=== PATIENT | male | born 1935 | race Caucasian/White ===

== ENCOUNTER 2021-03-08 16:13 | Inpatient (IN) | payer MEDICARE, SELFPAY ==
[2021-03-08] VITALS (18 sets, daily range): BP systolic 114–144; BP diastolic 61–103; PULSE 92–108; RESP 17–29; TEMP 36.4–36.9; O2SAT 91–100; BMI 25.8
--- NOTE | 2021-03-08 16:22 | DI.RAD.S_ITS ---
PROCEDURE: XR CHEST 2V INDICATIONS: shortness of breath TECHNIQUE: 2 views of the chest were acquired. COMPARISON: [facility], , CHEST 2 VIEW, 03/14/2016, 10:45. FINDINGS: Surgical changes and devices: None. Lungs and pleura: There is moderate patchy bilateral perihilar and basilar airspace opacities. Small right greater than left pleural effusions. Mediastinum: Mediastinal contours are normal. Heart size is normal. Bones and chest wall: No suspicious bony abnormalities. Soft tissues appear unremarkable. IMPRESSION: Moderate bilateral pneumonia with small parapneumonic effusions bilaterally. Continued plain film surveillance is recommended to ensure resolution, and to exclude underlying or central malignancy. Dictated by: Chinedu Kaufman M.D. on 03/08/2021 at 16:40 Approved by: Chinedu Kaufman M.D. on 03/08/2021 at 16:40
[2021-03-08 16:50] LABS: Add Manual Diff / Slide Review NO; Basophils Absolute Auto 100 /uL (0-100); Basophils Percent Auto 0.8 % (0-2); Eosinophils Absolute Auto 100 /uL (0-450); Eosinophils Percent Auto 1.3 % (2-4); Hematocrit 48.7 % (41-53); Lymphocytes Absolute Auto 600 /uL (1100-4500); Lymphocytes Percent Auto 9.1 % (25-40); Mean Corpuscular HGB Conc 32.9 % (30-36); Mean Corpuscular Hemoglobin 31.4 PG (26-34); Mean Corpuscular Volume 95.2 fL (80-100); Monocytes Absolute Auto 400 /uL (0-900); Monocytes Percent Auto 7.2 % (3-14); Neutrophils Absolute Auto 5000 /uL (1500-7000); Neutrophils Percent Auto 81.6 % (50-75); Platelet Count 230 X10^3/uL (150-400); Red Blood Cell Count 5.12 X10^6/uL (4.5-5.9); Red Cell Distribution Width 14.7 % (11.6-14.8); White Blood Cell Count 6.2 X10^3/uL (4.5-11.0)
[2021-03-08 17:12] LABS: Alanine Aminotransferase 64 IU/L (<50); Albumin 3.7 g/dL (3.5-5.0); Albumin Globulin Ratio 1.3 (1.0-2.8); Alkaline Phosphatase 78 U/L (38-126); Aspartate Aminotransferase 62 IU/L (17-59); BUN Creatinine Ratio 17.5 (6-22); Bilirubin Total 0.9 mg/dL (0.2-1.3); Blood Urea Nitrogen 21 mg/dL (9-20); Calcium 9.4 mg/dL (8.4-10.2); Carbon Dioxide 23 mmol/L (22-32); Chloride 102 mmol/L (98-107); Estimated Glomerular Filt Rate 57.8 mL/min (>60); Globulin 2.9 g/dL (1.7-4.1); Glucose 128 mg/dL (80-110); HEMOLYSIS 37 (0-50); Potassium 4.3 mmol/L (3.4-5.1); Sodium 134 mmol/L (137-145); Total Protein 6.6 g/dL (6.3-8.2)
--- NOTE | 2021-03-08 17:14 | CM.SWNOTE ---
REGIONAL MARKETING MANAGER Note REGIONAL MARKETING MANAGER receives consult and enters room to meet with patient. Patient presents as A/Ox4. Patient states he lives on [facility] with his partner Anna. Patient states [place] [facility]. Patient states he has been experiening SOB for about two months now. Patient states that his PCP recently retired and he is trying to be seen by Dr. Christiano French but scheduled an establish care appt with Dr. Tyson De Jesus next saturday. Patient states he is independent and mobile at home. Patient states that he has 10 cats and 2 dogs at home. Patient states the he has a brother that lives in [place], [place] and no other family near by. Patient states that his partner Anna is aware of his presence at this ED and does not think she needs to come in at this time. REGIONAL MARKETING MANAGER asks patient if he has any questions or concerns for this REGIONAL MARKETING MANAGER. Patient indicates no services are needed. REGIONAL MARKETING MANAGER reviews the above with ED provider Dr. Kate and JOSIE Kenyon and both indicate understanding and agreement. Plan: ED Provider to assess patient for further plan of care. LESVIA Valles
--- NOTE | 2021-03-08 17:28 | DI.CT.S_ITS ---
PROCEDURE: CT ANGIO CHEST PE PROTOCOL INDICATIONS: pneumonia b/l, cyanosis fingers/toes, swelling leg. TECHNIQUE: After the administration of intravenous contrast, 2 mm thick sections acquired from the pulmonary apices to the posterior costophrenic angles. 3-dimensional maximum intensity projection (MIP) coronal and sagittal reformats were then acquired through the thorax. For radiation dose reduction, the following was used: automated exposure control, adjustment of mA and/or kV according to patient size. COMPARISON: None. FINDINGS: Lungs: Smooth thickening of the interlobular septal lines and scattered mild ground-glass opacities. No focal consolidation. Pleura: Large bilateral pleural effusions with adjacent atelectasis. No pneumothorax. Heart: Heart is enlarged. No pericardial effusion. Reflux of contrast into the IVC and hepatic veins suggesting decreased cardiac output. Chest nodes: Normal. Thyroid gland: Normal Aorta: Normal in size. Pulmonary arteries: No intraluminal filling defect seen Esophagus: Normal. Upper abdomen: Partially visualized left hydronephrosis with cortical thinning versus large multiple parapelvic cysts, not entirely included on the examination. Bones: Spondylitic changes and facet arthropathy. IMPRESSION: No evidence of pulmonary embolism. No aortic dissection identified. Large bilateral pleural effusions with adjacent atelectasis and pulmonary edema. Recommend clinical and laboratory correlation to exclude underlying infection. Cardiomegaly with CT evidence of decreased cardiac output. Partially visualized left hydronephrosis which could be chronic although technically age indeterminate. Differential includes large multiple parapelvic cysts. Recommend clinical correlation and if necessary, renal ultrasound could be performed for further assessment. Dictated by: Teo Dominguez M.D. on 03/08/2021 at 17:59 Approved by: Teo Dominguez M.D. on 03/08/2021 at 18:08
[2021-03-08] MEDS: SODIUM CHLORIDE 0.9% 1,000 ML 1000 ML IV (17:47)
[2021-03-08] MEDS: methylPREDNISolone 125 MG/2 ML VIAL IV (17:47)
[2021-03-08] MEDS: CEFTRIAXONE 2 GM/50 ML FROZ.PIGGY IV (17:53)
[2021-03-08 17:57] LABS: Creatine Kinase 129 U/L (55-170)
[2021-03-08 18:10] LABS: NT-proBNP (BNP-Adult 18+) 11900 pg/mL (<450); Troponin I 0.049 ng/mL (0.01-0.034)
[2021-03-08 18:12] LABS: Creatine Kinase MB 7.94 ng/mL (<2.37)
[2021-03-08 18:14] LABS: CKMB % Relative Index 6.2 % (1.5-5.0)
[2021-03-08] MEDS: AZITHROMYCIN 500 MG in DEXTROSE 5% IN WATER 250 ML IV (18:29)
[2021-03-08 19:01] LABS: COVID19 - ADMIT (NP swab/PCR) Negative (Negative)
[2021-03-08] MEDS: FUROSEMIDE 40 MG/4 ML VIAL IV (19:13)
[2021-03-08] MEDS: ASPIRIN 81 MG CHEW TAB 324 MG PO (19:14)
--- NOTE | 2021-03-08 23:23 | DI.ECHO.S_ITS ---
[facility] +---------+ : : [address] : : : : [id number] : : : : Phone: [phone]+ Echocardiogram Report + + :Name: JUDI NICHOLS Study Date: 03/09/2021 Height: 69 in : [facility] Weight: 175 lb : : Gender: Male BSA: 2.0 m2 : :: 1935 Age: 85 yrs BP: 134/95 mmHg: :Reason For Study: CONGESTIVE HEART FAILURE : :Ordering Physician: Jennifer MITCHELLformed By: Hyun Hernandez : :Referring: LINA MITCHELL : + + Interpretation Summary Normal sinus rhythm. Moderately dilated left ventricle with severe global hypokinesis. Ejection fraction is 10-15%. Stage II diastolic dysfunction. Mild left atrial enlargement. Mildly dilated RV with mildly reduced right ventricular function. Mitral valve leaflets are normal. There is mild mitral annular calcification with moderate associated eccentric posterior laterally directed mitral regurgitation. There is no obvious leaflet tethering or prolapse. Aortic sclerosis without stenosis. There is moderate central tricuspid regurgitation with estimated pulmonary artery systolic pressure of 55 mmHg assuming right atrial pressure 15 mmHg. There is moderate left pleural effusion. No prior study available for comparison. Procedure: A two-dimensional transthoracic echocardiogram with color flow and Doppler was performed. The study quality was technically adequate. There is no prior echocardiogram noted for this patient. The heart rate ranged between 78-88 bpm during the study. Left Ventricle: The left ventricle is moderately dilated. The estimated left ventricular end diastolic volume is 188 ml. There is normal left ventricular wall thickness. The ejection fraction is estimated to be 10-15%. Right Ventricle: The right ventricle is mildly dilated. Right ventricular systolic function is mildly reduced. Atria: The left atrium is mildly dilated. Right atrial size is normal. There is no Doppler evidence for an interatrial shunt. Mitral Valve: There is mild mitral annular calcification. The mitral valve leaflets appear moderately thickened, but open well. There is moderate mitral regurgitation. Aortic Valve: The aortic valve is mildly calcified. The aortic valve opens well. The aortic valve is trileaflet. There is no aortic valve stenosis. No aortic regurgitation is present. Tricuspid Valve: Tricuspid leaflets are thickened. The right ventricular systolic pressure is estimated to be at least 55 mmHg based on an estimated right atrial pressure of 15 mm Hg. There is mild to moderate tricuspid regurgitation. Pulmonic Valve: The pulmonic valve is not well visualized. Great Vessels: The aortic root is normal size. The ascending aorta could not be visualized. The aortic arch could not be visualized. The IVC is dilated (diameter is greater than 2.1 cm) and it collapses less than 50% with a sniff. This suggests a high right atrial pressure of 15 mm Hg. Pericardium/ Pleura There is no pericardial effusion. There is a pleural effusion noted. MMode/2D Measurements & Calculations LVIDd: 6.2 cm LVOT diam: 2.0 cm LVIDs: 5.9 cm Ao root diam: 3.0 cm FS: 5.2 % EPSS: 2.2 cm IVSd: 0.82 cm LVPWd: 0.68 cm LV ricks. diameter/BSA (cm/m^2): 3.2 LV sys. diameter/BSA (cm/m^2): 3.0 LA A2 area: 18.3 cm2 RA long axis: 4.9 cm LA A4 area: 26.7 cm2 RA area: 16.5 cm2 LA length (vol): 5.6 cm RA vol: 47.9 ml LA vol: 74.6 ml RA : 24.5 ml/m2 LA vol index: 38.2 ml/m2 IVC diam: 2.0 cm RVD1 (basal): 5.1 cm TAPSE: 1.5 cm Doppler Measurements & Calculations Ao V2 max: 86.3 cm/sec LVOT Max [place]: 50.0 cm/sec Ao V2 mean: 63.7 cm/sec LV V1 max P.0 mmHg Ao max P.0 mmHg LV V1 VTI: 8.8 cm Ao mean P.8 mmHg FATMATA(I,D): 1.6 cm2 Ao V2 VTI: 17.2 cm FATMATA(V,D): 1.8 cm2 sev ratio: 0.51 FATMATA indexed to BSA (cm^2/m^2): 0.80 MV E max [place]: 85.9 cm/sec TR max [place]: 316.0 cm/sec MV A max [place]: 55.9 cm/sec TR max P.0 mmHg MV E/A: 1.5 Med Peak E' [place]: 6.0 cm/sec E/E' med: 14.3 Lat Peak E' [place]: 5.7 cm/sec E/E' lat: 15.0 E/e' average: 14.7 MV dec time: 0.09 sec SV(LVOT): 26.7 ml Electronically signed by: Jeanne Falk M.D. on [place] Physician:03/09/2021 02:42 PM
[2021-03-08 23:53] LABS: Hemoglobin A1C% w Est Avg Glu 5.5 % (4.0-6.0)
[2021-03-08] MEDS: METOPROLOL IR 25 MG TABLET 12.5 MG PO (23:54)
[2021-03-09] VITALS (11 sets, daily range): BP systolic 92–127; BP diastolic 60–79; PULSE 79–95; RESP 16–24; TEMP 36.2–37.6; O2SAT 94–100
[2021-03-09 00:34] LABS: Magnesium 2.2 mg/dL (1.6-2.3)
[2021-03-09 01:01] LABS: Troponin I 0.055 ng/mL (0.01-0.034)
--- NOTE | 2021-03-09 03:25 | PM.HP.1 ---
History of Present Illness History of Present Illness Date Patient Seen: 03/08/21 Time Patient Seen: 22:45 Chief complaint: SOB Narrative: Omi Nowak is a 89-year-old male with the only diagnosis of having asthma presented to the emergency department with severe shortness of breath. States he has been unable to walk for much more than 100 ft and that this is been going on for 2 weeks. He also endorses feeling lightheaded when he gets up. He denies fevers sweats or chills, he coughs to release moisture from his lungs but does not have chronic cough, he states that he has poor hygiene in his mouth and he is worried about if his poor oral dentition might be contributing to problems in his heart, he denies any chest pain, palpitations, or pain with breathing, he denies any nausea vomiting, dysuria, weakness but does endorse fatigue, he denies any diarrhea or constipation. Chest x-ray in ordered in the ED indicated bilateral pleural effusions and CT of the chest indicated ?Large bilateral pleural effusions with adjacent atelectasis and pulmonary edema. Recommend clinical and laboratory correlation to exclude underlying infection.Patient is afebrile, blood pressure 121/61, heart rate 92, respiratory rate of 18, oxygen saturation 97% on room air, he weighs 79.3 kg with a BMI of 26. WBC is unremarkable, he is mildly hyponatremic with a sodium of 134, BUN is 21, creatinine 1.20, GFR is glucose was 128, he is not diabetic with a hemoglobin A1c of 5.5, AST 62, ALT 64, CK-MB is 7.94, CK-MB relative index 6.2, troponin was initially 0.049, then increased to 0.050, and is now 0.055, his NT proBNP is almost 12,000, COVID-19 PCR is negative. Patient History Surgical History (Updated 03/09/21 @ 03:34 by CARMINA Araujo) No history of previous surgery Family & Social History Family History (Updated 03/09/21 @ 03:35 by CARMINA Araujo) Mother Uterine cancer Father Lung cancer Social History: household members significant other Prior Living Arrangements House Safety & Behavioral: Feels Safe in Current Yes Environment Been Physically Hurt or No Threatened By a Person Tobacco & Substance use: Smoking Status Never smoker alcohol intake current alcohol intake frequency 0-2 drinks per day Meds Home Medications and Allergies Home Medications Medication Instructions Recorded Confirmed Type albuterol sulfate 90 mcg/actuation 2 puff INHALATION QID PRN #6.7 g 02/13/21 03/08/21 Rx aerosol inhaler fluticasone 500 mcg-salmeterol 50 1 inh INHALATION BID #1 ea 02/13/21 03/08/21 Rx mcg/dose blistr powdr for inhalation montelukast 10 mg PO DAILY 03/08/21 03/08/21 History Allergies Allergy/AdvReac Type Severity Reaction Status Date / Time No Known Drug Allergies Allergy Verified 06/10/19 14:10 Review of Systems Review of Systems ROS: Yes All systems reviewed with the patient and are negative except as otherwise documented Exam Vital Signs (past 8 hours): - 03/08/21 19:30 03/08/21 20:00 03/08/21 20:13 Temperature Pulse Rate 100 H 103 H 99 H Respiratory Rate 17 22 20 Blood Pressure 116/83 114/79 Pulse Oximetry 99 99 95 03/08/21 20:30 03/08/21 21:00 03/08/21 21:30 Temperature Pulse Rate 101 H 101 H 102 H Respiratory Rate 20 27 H 19 Blood Pressure Pulse Oximetry 99 100 99 03/08/21 22:00 03/08/21 22:35 03/08/21 23:19 Temperature 98.1 F 97.6 F Pulse Rate 105 H 108 H 92 H Respiratory Rate 26 H 24 18 Blood Pressure 134/95 H 121/61 Pulse Oximetry 98 94 97 Oxygen Delivery Method Room Air Oxygen Flow Rate 0 Narrative Exam Narrative: Gen: Alert, oriented, dishevelled 85 y.o. male, ill-appearing HEENT: normocephalic, atraumatic, conjunctiva clear, sclera non-icteric, poor dentition, oral mucosa dry Neck: supple, full ROM, no JVD, trachea is midline Resp: Lung sounds are coarse, non-labored breathing CV: RRR, no murmur or rubs Abd: soft, non-tender, normoactive BTs Skin: Very cyanotic extremities, cold, poor skin turgor Neuro: Alert and oriented X 4 w/no focal deficits. Speech clear and coherent. Extremities: moves all 4 extremities, is ambulatory, negative Ludy?s sign Psyche: normal mood and affect. Objective Labs Result Diagrams: 03/08/21 16:30 03/08/21 16:30 Labs: Laboratory Results - last 24 hr 03/08/21 03/08/21 03/08/21 16:30 16:30 16:30 WBC 6.2 RBC 5.12 Hgb 16.0 Hct 48.7 MCV 95.2 MCH 31.4 MCHC 32.9 RDW 14.7 Plt Count 230 Neut % (Auto) 81.6 H Lymph % (Auto) 9.1 L [place] % (Auto) 7.2 Eos % (Auto) 1.3 L Baso % (Auto) 0.8 Neut # (Auto) 5000 Lymph # (Auto) 600 L [place] # (Auto) 400 Eos # (Auto) 100 Baso # (Auto) 100 Sodium 134 L Potassium 4.3 Chloride 102 Carbon Dioxide 23 BUN 21 H Creatinine 1.20 Estimated GFR 57.8 L BUN/Creatinine Ratio 17.5 Glucose 128 H Hemoglobin A1c Lactate 2.0 Calcium 9.4 Magnesium Total Bilirubin 0.9 AST 62 H ALT 64 H Alkaline Phosphatase 78 Total Creatine Kinase CK-MB (CK-2) CK-MB (CK-2) Rel Index Troponin I NT-Pro-B Natriuret Pep Total Protein 6.6 Albumin 3.7 Globulin 2.9 Albumin/Globulin Ratio 1.3 SARS-CoV-2 (PCR) 03/08/21 03/08/21 03/08/21 16:30 16:30 16:30 WBC RBC Hgb Hct MCV MCH MCHC RDW Plt Count Neut % (Auto) Lymph % (Auto) [place] % (Auto) Eos % (Auto) Baso % (Auto) Neut # (Auto) Lymph # (Auto) [place] # (Auto) Eos # (Auto) Baso # (Auto) Sodium Potassium Chloride Carbon Dioxide BUN Creatinine Estimated GFR BUN/Creatinine Ratio Glucose Hemoglobin A1c 5.5 Lactate Calcium Magnesium 2.2 Total Bilirubin AST ALT Alkaline Phosphatase Total Creatine Kinase 129 CK-MB (CK-2) 7.94 H CK-MB (CK-2) Rel Index 6.2 H* Troponin I 0.049 H NT-Pro-B Natriuret Pep 69835 H Total Protein Albumin Globulin Albumin/Globulin Ratio SARS-CoV-2 (PCR) 03/08/21 03/08/21 03/09/21 17:22 19:17 00:29 WBC RBC Hgb Hct MCV MCH MCHC RDW Plt Count Neut % (Auto) Lymph % (Auto) [place] % (Auto) Eos % (Auto) Baso % (Auto) Neut # (Auto) Lymph # (Auto) [place] # (Auto) Eos # (Auto) Baso # (Auto) Sodium Potassium Chloride Carbon Dioxide BUN Creatinine Estimated GFR BUN/Creatinine Ratio Glucose Hemoglobin A1c Lactate Calcium Magnesium Total Bilirubin AST ALT Alkaline Phosphatase Total Creatine Kinase CK-MB (CK-2) CK-MB (CK-2) Rel Index Troponin I 0.050 H 0.055 H NT-Pro-B Natriuret Pep Total Protein Albumin Globulin Albumin/Globulin Ratio SARS-CoV-2 (PCR) Negative Assessment & Plan Assessment & Plan narrative: Omi Nowak will be admitted for further evaluation, treatment and risk stratification for newly diagnosed congestive heart failure. Congestive heart failure, new and acute, present on admission -patient will undergo echocardiogram in the morning. Due to patient's concerns of endocarditis the patient may need to undergo a NESS if there are any indications of vegetations on his valves seen on the echocardiogram. -patient will be started tomorrow on metoprolol succinate 12.5 mg b.i.d. and losartan 25 mg daily -risk stratification: Patient is not diabetic, lipid panel is pending -patient has been having slow rises in his troponin likely due to demand ischemia Reactive airway disease, chronic -patient is currently oxygenating well and will be given albuterol and duo neb nebulizers VTE prophylaxis: Wells risk score: 0 Enoxaparin 40 mg subQ daily Consults: none Patient is admitted under inpatient status with expected length of stay greater than 2 midnights due to severity of presenting symptoms, risk of adverse event, and complexity of treatment plan. FEN: saline lock, heart healthy diet, BMP and magnesium in the am. Dispo: probable discharge to home Code Status: Full Code as discussed with patient, surrogate is Anna, his housemate Scores Wells' Criteria for PE Clinical signs and symptoms of DVT: No PE is #1 Dx or equally likely: No Heart rate > 100: No Immobilization at least 3 days or surg in previous 4 weeks: No History of PE or DVT: No Hemoptysis: No Malignancy w/Treatment within 6 months or palliative: No Wells' PE Score total: 0 Quality VTE Deep Vein Thrombosis/Pulmonary Embolism Present on Admission: No MIPS - DC The patient has current or prior documentation of left ventricular ejection fraction (LVEF) less than 40%, or moderate or severely depressed left ventricular systolic function.: No A. The patient was prescribed or already taking an Angiotensin-Converting Enzyme (ALESHA) Inhibitor, or Angiotensin Receptor Gemma (ARB).: Yes B. The patient was prescribed or already taking a beta-gemma. [If Yes to Both A & B, STOP here]: Yes
[2021-03-09 06:39] LABS: Add Manual Diff / Slide Review NO; Basophils Absolute Auto 0 /uL (0-100); Basophils Percent Auto 0.1 % (0-2); Eosinophils Absolute Auto 0 /uL (0-450); Hemoglobin 15.7 g/dL (13.5-17.5); Lymphocytes Absolute Auto 300 /uL (1100-4500); Lymphocytes Percent Auto 7.1 % (25-40); Mean Corpuscular HGB Conc 32.7 % (30-36); Mean Corpuscular Hemoglobin 31.2 PG (26-34); Mean Corpuscular Volume 95.3 fL (80-100); Monocytes Absolute Auto 100 /uL (0-900); Monocytes Percent Auto 2.9 % (3-14); Neutrophils Absolute Auto 3400 /uL (1500-7000); Neutrophils Percent Auto 89.9 % (50-75); Platelet Count 217 X10^3/uL (150-400); Red Blood Cell Count 5.04 X10^6/uL (4.5-5.9); Red Cell Distribution Width 14.5 % (11.6-14.8); White Blood Cell Count 3.8 X10^3/uL (4.5-11.0)
[2021-03-09 06:44] LABS: BUN Creatinine Ratio 16.3 (6-22); Blood Urea Nitrogen 21 mg/dL (9-20); Calcium 8.9 mg/dL (8.4-10.2); Carbon Dioxide 26 mmol/L (22-32); Chloride 103 mmol/L (98-107); Cholesterol 122 mg/dL (140-199); Estimated Glomerular Filt Rate 53.2 mL/min (>60); Glucose 142 mg/dL (80-110); HDL Cholesterol 42 mg/dL (40-60); HEMOLYSIS < 15 (0-50); LDL Cholesterol Calculated 71 mg/dL (<100); Potassium 4.6 mmol/L (3.4-5.1); Sodium 136 mmol/L (137-145); Triglycerides 45 mg/dL (35-150)
[2021-03-09 06:45] LABS: Alanine Aminotransferase 50 IU/L (<50); Albumin Globulin Ratio 1.2 (1.0-2.8); Alkaline Phosphatase 59 U/L (38-126); Aspartate Aminotransferase 29 IU/L (17-59); Bilirubin Total 0.6 mg/dL (0.2-1.3); Bilirubin Unconjugated 0.5 mg/dL (0.0-1.1); Globulin 2.5 g/dL (1.7-4.1); HEMOLYSIS < 15 (0-50); Total Protein 5.5 g/dL (6.3-8.2)
[2021-03-09 06:55] LABS: Troponin I 0.049 ng/mL (0.01-0.034)
[2021-03-09 07:20] LABS: Thyroid Stimulating Hormone 1.34 uIU/mL (0.47-4.68)
[2021-03-09] MEDS: METOPROLOL IR 25 MG TABLET 12.5 MG PO ×2 (09:22→21:04)
[2021-03-09] MEDS: LOSARTAN 25 MG TABLET PO (09:23)
[2021-03-09] MEDS: ENOXAPARIN 40 MG/0.4 ML SYRINGE SUBCUT (09:23)
[2021-03-09] MEDS: ASPIRIN EC 81 MG TABLET PO (09:23)
--- NOTE | 2021-03-09 11:13 | P.PN_ITS ---
Subjective Subjective Date Patient Seen: 03/09/21 Time Patient Seen: 11:15 Interval history: This is an 85-year-old male with past medical history of presumed asthma according to prior documentation who was admitted with shortness of breath and presumed heart failure. Echocardiogram today showed mixed systolic and diastolic function with a severely reduced EF at 10-15%, patient reports improvements in symptoms after diuresis and initiation of standard medications although is dyspnic with minimal exertion. Will continue diuresis today. Did discuss with Cardiology, Dr. Peraza, who recommended stress testing once euvolemic, however this will take a few days to achieve. Exam Vital Signs (past 8 hours): - 03/09/21 04:49 03/09/21 08:35 03/09/21 09:20 Temperature 97.1 F L 98.2 F Pulse Rate 87 85 Respiratory Rate 16 18 Blood Pressure 111/79 127/64 Pulse Oximetry 97 97 97 03/09/21 09:23 Temperature Pulse Rate 85 Respiratory Rate Blood Pressure 127/64 Pulse Oximetry Oxygen Delivery Method Room Air Oxygen Flow Rate 0 Narrative Exam Narrative: Gen: Alert, oriented, dishevelled 85 y.o. male, chronically ill-appearing HEENT: normocephalic, atraumatic, conjunctiva clear, sclera non-icteric, poor dentition, oral mucosa moist Neck: supple, full ROM, no JVD, trachea is midline Resp: diminished breath sounds bilateral lung bases, mild crackles mid lungs bilaterally, no wheezing. CV: RRR, no murmur or rubs Abd: soft, non-tender, normoactive BTs Skin: warm, no rashes, mild venous stasis changes b/l Lower extremities. Toenail's with fungal infection and dirt. Neuro: Alert and oriented X 4 w/no focal deficits. Speech clear and coherent. Extremities: moves all 4 extremities, 2-3+ pitting edema bilaterally. Psyche: normal mood and affect. Objective Labs Result Diagrams: 03/09/21 06:03 03/09/21 06:03 Labs: Laboratory Results - last 24 hr 03/08/21 03/08/21 03/08/21 16:30 16:30 16:30 WBC 6.2 RBC 5.12 Hgb 16.0 Hct 48.7 MCV 95.2 MCH 31.4 MCHC 32.9 RDW 14.7 Plt Count 230 Neut % (Auto) 81.6 H Lymph % (Auto) 9.1 L Frederick % (Auto) 7.2 Eos % (Auto) 1.3 L Baso % (Auto) 0.8 Neut # (Auto) 5000 Lymph # (Auto) 600 L Frederick # (Auto) 400 Eos # (Auto) 100 Baso # (Auto) 100 Sodium 134 L Potassium 4.3 Chloride 102 Carbon Dioxide 23 BUN 21 H Creatinine 1.20 Estimated GFR 57.8 L BUN/Creatinine Ratio 17.5 Glucose 128 H Hemoglobin A1c Lactate 2.0 Calcium 9.4 Magnesium Total Bilirubin 0.9 Conjugated Bilirubin Unconjugated Bilirubin AST 62 H ALT 64 H Alkaline Phosphatase 78 Total Creatine Kinase CK-MB (CK-2) CK-MB (CK-2) Rel Index Troponin I NT-Pro-B Natriuret Pep Total Protein 6.6 Albumin 3.7 Globulin 2.9 Albumin/Globulin Ratio 1.3 Triglycerides Cholesterol LDL Cholesterol, Calc HDL Cholesterol TSH SARS-CoV-2 (PCR) 03/08/21 03/08/21 03/08/21 16:30 16:30 16:30 WBC RBC Hgb Hct MCV MCH MCHC RDW Plt Count Neut % (Auto) Lymph % (Auto) Frederick % (Auto) Eos % (Auto) Baso % (Auto) Neut # (Auto) Lymph # (Auto) Frederick # (Auto) Eos # (Auto) Baso # (Auto) Sodium Potassium Chloride Carbon Dioxide BUN Creatinine Estimated GFR BUN/Creatinine Ratio Glucose Hemoglobin A1c 5.5 Lactate Calcium Magnesium 2.2 Total Bilirubin Conjugated Bilirubin Unconjugated Bilirubin AST ALT Alkaline Phosphatase Total Creatine Kinase 129 CK-MB (CK-2) 7.94 H CK-MB (CK-2) Rel Index 6.2 H* Troponin I 0.049 H NT-Pro-B Natriuret Pep 17177 H Total Protein Albumin Globulin Albumin/Globulin Ratio Triglycerides Cholesterol LDL Cholesterol, Calc HDL Cholesterol TSH SARS-CoV-2 (PCR) 03/08/21 03/08/21 03/09/21 17:22 19:17 00:29 WBC RBC Hgb Hct MCV MCH MCHC RDW Plt Count Neut % (Auto) Lymph % (Auto) Frederick % (Auto) Eos % (Auto) Baso % (Auto) Neut # (Auto) Lymph # (Auto) Frederick # (Auto) Eos # (Auto) Baso # (Auto) Sodium Potassium Chloride Carbon Dioxide BUN Creatinine Estimated GFR BUN/Creatinine Ratio Glucose Hemoglobin A1c Lactate Calcium Magnesium Total Bilirubin Conjugated Bilirubin Unconjugated Bilirubin AST ALT Alkaline Phosphatase Total Creatine Kinase CK-MB (CK-2) CK-MB (CK-2) Rel Index Troponin I 0.050 H 0.055 H NT-Pro-B Natriuret Pep Total Protein Albumin Globulin Albumin/Globulin Ratio Triglycerides Cholesterol LDL Cholesterol, Calc HDL Cholesterol TSH SARS-CoV-2 (PCR) Negative 03/09/21 03/09/21 03/09/21 06:03 06:03 06:03 WBC 3.8 L RBC 5.04 Hgb 15.7 Hct 48.0 MCV 95.3 MCH 31.2 MCHC 32.7 RDW 14.5 Plt Count 217 Neut % (Auto) 89.9 H Lymph % (Auto) 7.1 L Frederick % (Auto) 2.9 L Eos % (Auto) 0.0 L Baso % (Auto) 0.1 Neut # (Auto) 3400 Lymph # (Auto) 300 L Frederick # (Auto) 100 Eos # (Auto) 0 Baso # (Auto) 0 Sodium 136 L Potassium 4.6 Chloride 103 Carbon Dioxide 26 BUN 21 H Creatinine 1.29 H Estimated GFR 53.2 L BUN/Creatinine Ratio 16.3 Glucose 142 H Hemoglobin A1c Lactate Calcium 8.9 Magnesium Total Bilirubin Conjugated Bilirubin Unconjugated Bilirubin AST ALT Alkaline Phosphatase Total Creatine Kinase CK-MB (CK-2) CK-MB (CK-2) Rel Index Troponin I NT-Pro-B Natriuret Pep Total Protein Albumin Globulin Albumin/Globulin Ratio Triglycerides 45 Cholesterol 122 L LDL Cholesterol, Calc 71 HDL Cholesterol 42 TSH 1.34 SARS-CoV-2 (PCR) 03/09/21 03/09/21 06:03 06:03 WBC RBC Hgb Hct MCV MCH MCHC RDW Plt Count Neut % (Auto) Lymph % (Auto) Frederick % (Auto) Eos % (Auto) Baso % (Auto) Neut # (Auto) Lymph # (Auto) Frederick # (Auto) Eos # (Auto) Baso # (Auto) Sodium Potassium Chloride Carbon Dioxide BUN Creatinine Estimated GFR BUN/Creatinine Ratio Glucose Hemoglobin A1c Lactate Calcium Magnesium Total Bilirubin 0.6 Conjugated Bilirubin 0.0 Unconjugated Bilirubin 0.5 AST 29 ALT 50 H Alkaline Phosphatase 59 Total Creatine Kinase CK-MB (CK-2) CK-MB (CK-2) Rel Index Troponin I 0.049 H NT-Pro-B Natriuret Pep Total Protein 5.5 L Albumin 3.0 L Globulin 2.5 Albumin/Globulin Ratio 1.2 Triglycerides Cholesterol LDL Cholesterol, Calc HDL Cholesterol TSH SARS-CoV-2 (PCR) [facility] Surgical History (Updated 03/09/21 @ 03:34 by CARMINA Araujo) No history of previous surgery Family History (Updated 03/09/21 @ 03:35 by CARMINA Araujo) Mother Uterine cancer Father Lung cancer Social History household members: significant other Smoking Status: Never smoker alcohol intake: current Assessment & Plan Assessment & Plan narrative: This is an 85-year-old male with past medical history of presumed asthma according to prior documentation who was admitted with shortness of breath and presumed heart failure. Echocardiogram today showed mixed systolic and diastolic function with a severely reduced EF at 10- 15%, patient reports improvements in symptoms after diuresis and initiation of standard medications, although he still is dyspnic with minimal exertion. 1. 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 -patient started on metoprolol succinate 12.5 mg b.i.d. and losartan 25 mg daily. Likely will need to start aldactone depending on symptoms once more euvolemic. -Did discuss with Cardiology, Dr. Peraza, who recommended stress testing once euvolemic, however this will take a few days to achieve. -risk stratification: Patient is not diabetic, lipid panel shows TC 122, LDL 71, HDL 42. TG 45. TSH 1.34 -Continue diuresis with 40 mg IV BID. -continue telemetery 2. Reactive airway disease, chronic -patient is currently oxygenating well, no wheezing. -replace home fluticasone salmeterol with pulmicort and albuterol. 3. Bilateral pleural effusions, acute, present on admission. - likely secondary to heart failure and volume overload. No respiratory distress currently. Consider thoracentesis if no improvement in symptoms. 4. Elevated troponin, acute present on admission - peaked at 0.055. Likely related to demand in setting of decompensated heart failure as above. VTE prophylaxis: Enoxaparin 40 mg subQ daily Dispo: Patient is admitted under inpatient status. Likely discharge home after diuresis and will likely require stress testing prior to discharge as recommended above by cardiology. Code Status: Full Code as discussed with patient, surrogate is Anna, his housemate Quality VTE Deep Vein Thrombosis/Pulmonary Embolism Present on Admission: No
[2021-03-09] MEDS: FUROSEMIDE 40 MG/4 ML VIAL IV (12:44)
--- NOTE | 2021-03-09 12:50 | PC.NURSE ---
Held lasix until patient was no longer hypotensive. Patient currently eating, tolerating activity. Denies SOB, chest pain, dizziness or lightheadedness. Saline locked at this time. Voiding in urinal. Bilat 3+ edema noted, patient denies numbness or decreased sensation in feet, callus noted bilateral heels, abrasion to left lateral heel, dusky discoloration noted to bilateral toes. Cap refill >3. Pulses equal. Call light in reach, patient instructed to call to get OOB.
[2021-03-09] MEDS: ALBUTEROL 2.5 MG/3 ML NEB (ADULT) INH (19:21)
[2021-03-09] MEDS: BUDESONIDE 0.5 MG/2 ML NEB INH (19:28)
[2021-03-10] VITALS (12 sets, daily range): BP systolic 95–115; BP diastolic 62–72; PULSE 81–92; RESP 16–20; TEMP 36.4–36.9; O2SAT 95–100
[2021-03-10 06:46] LABS: Alanine Aminotransferase 44 IU/L (<50); Albumin 3.1 g/dL (3.5-5.0); Albumin Globulin Ratio 1.3 (1.0-2.8); Alkaline Phosphatase 86 U/L (38-126); Aspartate Aminotransferase 31 IU/L (17-59); Bilirubin Total 0.3 mg/dL (0.2-1.3); Bilirubin Unconjugated 0.2 mg/dL (0.0-1.1); Globulin 2.4 g/dL (1.7-4.1); HEMOLYSIS < 15 (0-50); Total Protein 5.5 g/dL (6.3-8.2)
[2021-03-10] MEDS: ALBUTEROL 2.5 MG/3 ML NEB (ADULT) INH ×5 (07:32→22:56)
[2021-03-10] MEDS: BUDESONIDE 0.5 MG/2 ML NEB INH ×2 (07:32→19:23)
[2021-03-10 08:11] LABS: BUN Creatinine Ratio 20.5 (6-22); Blood Urea Nitrogen 30 mg/dL (9-20); Calcium 8.8 mg/dL (8.4-10.2); Carbon Dioxide 25 mmol/L (22-32); Chloride 103 mmol/L (98-107); Estimated Glomerular Filt Rate 46.1 mL/min (>60); Glucose 116 mg/dL (80-110); HEMOLYSIS < 15 (0-50); Magnesium 2.1 mg/dL (1.6-2.3); Potassium 3.9 mmol/L (3.4-5.1); Sodium 135 mmol/L (137-145)
[2021-03-10] MEDS: ENOXAPARIN 40 MG/0.4 ML SYRINGE SUBCUT (09:00)
[2021-03-10] MEDS: ASPIRIN EC 81 MG TABLET PO (09:00)
[2021-03-10] MEDS: LOSARTAN 25 MG TABLET PO (09:01)
[2021-03-10] MEDS: METOPROLOL IR 25 MG TABLET 12.5 MG PO ×2 (09:01→20:17)
[2021-03-10] MEDS: SODIUM CHLORIDE 0.9% FLUSH 10 ML IV ×2 (09:02→19:16)
--- NOTE | 2021-03-10 11:13 | PC.NURSE ---
Patient A/O x 3, resting in bed, breathing unlabored, shallow, patient denies chest pain, endorses SOB with activity. Lungs clear, diminished in bilateral bases, 99% on RA. Tele on, patient is voiding in urinal. Tolerating diet, educated on fluid intake and encouraged to minimize fluid intake. Bilateral LE 3+ pitting edema. Patient reports pain on coccyx, repositioned and turned Q2H. Saline locked, R AC IV patent. LE elevated. Heels floated. Call light in reach, patient encouraged to call before getting OOB. Bed alarm on.
[2021-03-10] MEDS: FUROSEMIDE 40 MG/4 ML VIAL IV ×2 (13:28→19:16)
--- NOTE | 2021-03-10 15:10 | PM.PN.1 ---
Subjective Subjective Date Patient Seen: 03/10/21 Time Patient Seen: 15:10 Interval history: This is an 85-year-old male with past medical history of presumed asthma according to prior documentation who was admitted with shortness of breath and presumed heart failure. Echocardiogram showed mixed systolic and diastolic function with a severely reduced EF at 10-15%. Reports stable symptoms today, possibly slightly worse dyspnea on exertion. He denies any fever, chills, dizziness, chest pain with palpitations. He reports being quite thirsty and actually drinking quite a bit of water, which she usually does at home. Exam Vital Signs (past 8 hours): - 03/10/21 07:34 03/10/21 07:58 03/10/21 08:25 Temperature 98.4 F Pulse Rate 83 86 89 Respiratory Rate 20 20 18 Blood Pressure 100/72 Pulse Oximetry 97 98 03/10/21 09:01 03/10/21 11:02 03/10/21 12:10 Temperature 97.9 F Pulse Rate 89 81 91 H Respiratory Rate 20 16 Blood Pressure 100/72 101/62 Pulse Oximetry 99 100 Oxygen Delivery Method Room Air Oxygen Flow Rate 0 Narrative Exam Narrative: Gen: Alert, oriented, dishevelled 85 y.o. male, chronically ill-appearing HEENT: normocephalic, atraumatic, conjunctiva clear, sclera non-icteric, poor dentition, oral mucosa moist Neck: supple, full ROM, no JVD, trachea is midline Resp: diminished breath sounds bilateral lung bases, mild crackles mid lungs bilaterally, though both slightly improved on exam today. no wheezing. CV: RRR, no murmur or rubs Abd: soft, non-tender, normoactive BTs Skin: warm, no rashes, mild venous stasis changes b/l Lower extremities. Toenail's with fungal infection and dirt. Neuro: Alert and oriented X 4 w/no focal deficits. Speech clear and coherent. Extremities: moves all 4 extremities, 2-3+ pitting edema bilaterally. Psyche: normal mood and affect. Objective Labs Result Diagrams: 03/09/21 06:03 03/10/21 05:50 Labs: Laboratory Results - last 24 hr 03/10/21 03/10/21 05:50 05:52 Sodium 135 L Potassium 3.9 Chloride 103 Carbon Dioxide 25 BUN 30 H Creatinine 1.46 H Estimated GFR 46.1 L BUN/Creatinine Ratio 20.5 Glucose 116 H Calcium 8.8 Magnesium 2.1 Total Bilirubin 0.3 Conjugated Bilirubin 0.0 Unconjugated Bilirubin 0.2 AST 31 ALT 44 Alkaline Phosphatase 86 Total Protein 5.5 L Albumin 3.1 L Globulin 2.4 Albumin/Globulin Ratio 1.3 [facility] Surgical History (Updated 03/09/21 @ 03:34 by CARMINA Araujo) No history of previous surgery Family History (Updated 03/09/21 @ 03:35 by CARMINA Araujo) Mother Uterine cancer Father Lung cancer Social History household members: significant other Smoking Status: Never smoker alcohol intake: current Assessment & Plan Assessment & Plan narrative: This is an 85-year-old male with past medical history of presumed asthma according to prior documentation who was admitted with shortness of breath and presumed heart failure. Echocardiogram showed mixed systolic and diastolic function with a severely reduced EF at 10-15%, patient reports improvements in symptoms after diuresis and initiation of standard medications, although he still is dyspnic with minimal exertion. 1. 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 -patient started on metoprolol succinate 12.5 mg b.i.d. and losartan 25 mg daily. Likely will need to start aldactone depending on symptoms once more euvolemic. -Did discuss with Cardiology, Dr. Peraza, who recommended stress testing as inpatient once euvolemic, however this will take a few days to achieve. -risk stratification: Patient is not diabetic, lipid panel shows TC 122, LDL 71, HDL 42. TG 45. TSH 1.34 -Continue diuresis with 40 mg IV BID. Started fluid restriction today which will likely help as he has been drinking quite a bit of fluid, he is around net neutral intake and output. Depending on output today, may need increase in furosemide tomorrow. -continue telemetery, no events thus far. 2. Reactive airway disease, chronic -patient is currently oxygenating well, no wheezing. -replace home fluticasone salmeterol with pulmicort and albuterol. 3. Bilateral pleural effusions, acute, present on admission. - likely secondary to heart failure and volume overload. No respiratory distress currently. Consider thoracentesis if no improvement in symptoms with adequate diuresis. 4. Elevated troponin, acute present on admission - peaked at 0.055. Likely in setting of decompensated heart failure. No EKG changes consistent with acute ischemia and patient denied chest pain. VTE prophylaxis: Enoxaparin 40 mg subQ daily Dispo: Patient is admitted under inpatient status. Likely discharge home after diuresis and will likely require stress testing prior to discharge as recommended above by cardiology. Code Status: Full Code as discussed with patient, surrogate is Anna, his housemate Quality VTE Deep Vein Thrombosis/Pulmonary Embolism Present on Admission: No
--- NOTE | 2021-03-10 16:30 | PC.NURSE ---
Addendum entered by Alyssa Brock R.N. 03/10/21 21:29: Dr. Miramontes has spoken in room with pt this evening shift per pt request. Addendum entered by Alyssa Brock R.N. 03/10/21 19:15: Pt sitting up @ bedside using urinal. Report from [employer] pt had 10-12 beat run of SVT with rate as high @ 150. Pt moves self from side of bed into bed without complaints. Vital signs in progress and as recorded. Fluid restriction as per MD and this was explained to pt. Original Note: Pt awake, alert resting quietly in bed. Slightly hard of hearing, but able to make needs and wants known to staff members. Pt denies dysnpea, denies chest or other pain. States has sore bottom and demonstrates movement in bed to relieve pressure to buttocks. Informed pt will apply barrier cream to buttocks next time pt out of bed. Tele in place. Pt admits to sensation to feet BL and pulses present with doppler BL. Feet and hands are dusky in color and cool to touch.
[2021-03-11] VITALS (14 sets, daily range): BP systolic 100–137; BP diastolic 66–84; PULSE 71–89; RESP 16–18; TEMP 36.5–37.3; O2SAT 95–99
[2021-03-11] MEDS: SODIUM CHLORIDE 0.9% FLUSH 10 ML IV ×3 (06:02→18:49)
--- NOTE | 2021-03-11 06:13 | PC.NURSE ---
Patient had weight change from 77.5 kg on 03/10 to 73.5 kg on 03/11. Hospitalist was notified of weight change and stated it is expected.
--- NOTE | 2021-03-11 07:09 | ED_ITS ---
HPI - SOB/Dyspnea General Chief Complaint: Shortness of Breath/Dyspnea Stated Complaint: SOB Time Seen by Provider: 03/08/21 17:07 Source: patient History of Present Illness HPI Narrative: Please note charting was delayed secondary to technical issues with the computer. I was unable to open a chart in the EMR nor was the other provider working that day and chart was completed at a later time. This is a 85-year-old male with a history of asthma who denies any additional medical issues presenting with increasing shortness of breath patient states that this is been worsening over the past 19 days and states it started after he received his COVID vaccine. Patient states that he is now can barely get to the bathroom without becoming short of breath. He feels lightheaded but has not had any syncope. He denies fevers, sweats or chills. He has had cough but has not been productive and is different than his typical is a smoker cough. Patient denies any chest pain or pressure, no nausea or vomiting, no GI changes such as diarrhea constipation, melena or hematochezia. Denies any urinary issues. Patient has appreciated swelling in both his upper and lower extremities as well as skin discoloration of his fingers and toes which has slowly worsening over time. Patient states that he uses a steroid inhaler daily as well as albuterol as needed. He gets this from the [facility]. He denies any other history of surgery. Patient states he is not a smoker, he does drink 1-2 drinks daily. No recreational drugs. Related Data Home Medications Medication Instructions Recorded Confirmed montelukast 10 mg PO DAILY 03/08/21 03/08/21 Previous Rx's Medication Instructions Recorded albuterol sulfate 90 mcg/actuation 2 puff INHALATION QID PRN #6.7 g 02/13/21 aerosol inhaler fluticasone 500 mcg-salmeterol 50 1 inh INHALATION BID #1 ea 02/13/21 mcg/dose blistr powdr for inhalation Allergies Allergy/AdvReac Type Severity Reaction Status Date / Time No Known Drug Allergies Allergy Verified 06/10/19 14:10 Review of Systems Review of Systems ROS Unobtainable: All systems reviewed & are unremarkable except as noted in HPI and below Patient History Surgical History No history of previous surgery Family History (Updated 03/09/21 @ 03:35 by CARMINA Araujo) Mother Uterine cancer Father Lung cancer Social History household members: significant other Smoking Status: Never smoker alcohol intake: current Smoking Status: Never smoker alcohol intake frequency: 0-2 drinks per day Exam Narrative Exam Narrative: GEN: The male in [id number] distress, alert and oriented x [default value], patient appears to be in [default value] distress. HEENT: Atraumatic, pupils are equal round reactive to light, extraocular movements are intact, nares are clear, TMs are clear with no fluid, there is no conjunctival pallor. Throat is clear without any exudates, erythema, tonsillar enlargement or uvular deviation HEART: Regular rate and rhythm without murmur, clicks, rubs. No carotid bruits, pulses are equal in upper extremities. Patient has bilateral lower extremity swelling with what appears to be chronic venous stasis changes. Patient also has cyanosis of his fingers with a cap refill less than 2 or 3 seconds. No clubbing is noted. LUNGS:Lungs coarse bilaterally, mild tachypnea, positive for bilateral crackles, chest moves symmetrically. ABD:bowel sounds normal, soft, non-tender, no guarding, rebound, rigidity, no masses noted, no hepatosplenomegaly MSCL: Non-tender, full range of motion NEURO:CN 2-12 intact, sensation normal Initial Vital Signs Initial Vital Signs: Vital Signs Temperature 98.4 F 03/08/21 16:18 Pulse Rate 100 H 03/08/21 16:18 Respiratory Rate 20 03/08/21 16:18 Blood Pressure 144/103 H 03/08/21 16:18 Pulse Oximetry 94 03/08/21 16:18 Scores GCS Arturo coma scale eye opening: Spontaneous Arturo coma scale verbal response: Orientated Arturo coma scale motor response: Obey commands Arturo coma scale total score: 15 Course Orders Ordered: Acetaminophen (Acetaminophen 325 Mg Tablet) 650 mg PO Q6HR PRN PRN Reason: Fever/Mild Pain (1-3) Albuterol (Albuterol 2.5 Mg/3 Ml Neb (Adult)) 2.5 mg INH [id number] ARACELIS Last Admin: 03/11/21 19:03 Dose: 2.5 mg Documented by: [email or web address] Admin: 03/11/21 17:05 Dose: Not Given Documented by: Admin: 03/11/21 13:35 Dose: 2.5 mg Documented by: Admin: 03/11/21 08:25 Dose: 2.5 mg Documented by: Admin: 03/10/21 22:56 Dose: 2.5 mg Documented by: Admin: 03/10/21 19:23 Dose: 2.5 mg Documented by: Admin: 03/10/21 15:26 Dose: 2.5 mg Documented by: Admin: 03/10/21 10:52 Dose: 2.5 mg Documented by: Admin: 03/10/21 07:32 Dose: 2.5 mg Documented by: Admin: 03/09/21 22:31 Dose: Not Given Documented by: Admin: 03/09/21 19:21 Dose: 2.5 mg Documented by: Admin: 03/09/21 17:37 Dose: Not Given Documented by: SAAD Albuterol (Albuterol 2.5 Mg/3 Ml Neb (Adult)) 2.5 mg INH [id number] PRN PRN Reason: Shortness Of Breath Aspirin (Aspirin Ec 81 Mg Tablet) 81 mg PO DAILY [facility] Last Admin: 03/11/21 09:26 Dose: 81 mg Documented by: Admin: 03/10/21 09:00 Dose: 81 mg Documented by: Admin: 03/09/21 09:23 Dose: 81 mg Documented by: RODRIGO Budesonide (Budesonide 0.5 Mg/2 Ml Neb) 0.5 mg INH RTBID [facility] Last Admin: 03/11/21 19:03 Dose: 0.5 mg Documented by: Admin: 03/11/21 08:25 Dose: 0.5 mg Documented by: Admin: 03/10/21 19:23 Dose: 0.5 mg Documented by: Admin: 03/10/21 07:32 Dose: 0.5 mg Documented by: Admin: 03/09/21 19:28 Dose: 0.5 mg Documented by: SAAD Enoxaparin Sodium (Enoxaparin 40 Mg/0.4 Ml Syringe) 40 mg SUBCUT DAILY [facility] Last Admin: 03/11/21 09:25 Dose: 40 mg Documented by: Admin: 03/10/21 09:00 Dose: 40 mg Documented by: Admin: 03/09/21 09:23 Dose: 40 mg Documented by: RODRIGO Furosemide (Furosemide 40 Mg/4 Ml Vial) 40 mg IV DAILY [facility] Last Admin: 03/11/21 10:17 Dose: Not Given Documented by: Admin: 03/11/21 09:26 Dose: 40 mg Documented by: SLICK Metoprolol Tartrate (Metoprolol Ir 25 Mg Tablet) 12.5 mg PO BID [facility] Admin: 03/11/21 09:26 Dose: 12.5 mg Documented by: Admin: 03/10/21 20:17 Dose: 12.5 mg Documented by: Admin: 03/10/21 09:01 Dose: 12.5 mg Documented by: Admin: 03/09/21 21:04 Dose: 12.5 mg Documented by: Admin: 03/09/21 09:22 Dose: 12.5 mg Documented by: Admin: 03/08/21 23:54 Dose: 12.5 mg Documented by: ALEYDA Naloxone HCl (Naloxone 0.4 Mg/Ml Vial) 0.2 mg IV Q2MIN PRN PRN Reason: Opiate Reversal Ondansetron HCl (Ondansetron 4 Mg/2 Ml Inj) 4 mg IV Q8HR PRN PRN Reason: Nausea And Vomiting Sodium Chloride (Sodium Chloride 0.9% Flush) 10 ml IV PRN PRN PRN Reason: Flush Last Admin: 03/11/21 06:02 Dose: 10 ml Documented by: Admin: 03/10/21 19:16 Dose: 10 ml Documented by: LIDIA Sodium Chloride (Sodium Chloride 0.9% Flush) 10 ml IV BID [facility] Last Admin: 03/11/21 18:49 Dose: 10 ml Documented by: Admin: 03/11/21 09:15 Dose: 10 ml Documented by: Admin: 03/10/21 20:17 Dose: Not Given Documented by: Admin: 03/10/21 09:02 Dose: 10 ml Documented by: WILMAR Discontinued Medications Aspirin (Aspirin 81 Mg Chew Tab) 324 mg PO NOW ONE Stop: 03/08/21 18:50 Last Admin: 03/08/21 19:14 Dose: 324 mg Documented by: EVAN Furosemide (Furosemide 40 Mg/4 Ml Vial) 40 mg IV NOW ONE Stop: 03/08/21 18:50 Last Admin: 03/08/21 19:13 Dose: 40 mg Documented by: EVAN Furosemide (Furosemide 40 Mg/4 Ml Vial) 40 mg IV NOW ONE Stop: 03/09/21 10:23 Last Admin: 03/09/21 12:44 Dose: 40 mg Documented by: WILMAR Furosemide (Furosemide 40 Mg/4 Ml Vial) 40 mg IV NOW ONE Stop: 03/10/21 13:12 Last Admin: 03/10/21 13:28 Dose: 40 mg Documented by: WILMAR Furosemide (Furosemide 40 Mg/4 Ml Vial) 40 mg IV 0800,1900 ARACELIS Last Admin: 03/11/21 10:25 Dose: Not Given Documented by: Admin: 03/10/21 19:16 Dose: 40 mg Documented by: LIDIA Furosemide (Furosemide 20 Mg/2 Ml Vial) 20 mg IV NOW ONE Stop: 03/11/21 18:25 Last Admin: 03/11/21 18:49 Dose: 20 mg Documented by: LIDIA Ceftriaxone Sodium/Dextrose (Rocephin) 2 gm in 50 mls @ 100 mls/hr IV NOW ONE Stop: 03/08/21 17:44 Last Infusion: 03/08/21 18:18 Dose: 0 mls/hr Documented by: Admin: 03/08/21 17:53 Dose: 100 mls/hr Documented by: EVAN Azithromycin 500 mg/ Dextrose 250 mls @ 250 mls/hr IV NOW ONE Stop: 03/08/21 17:16 Last Infusion: 03/08/21 20:00 Dose: 0 mls/hr Documented by: Admin: 03/08/21 18:29 Dose: 250 mls/hr Documented by: EVAN Sodium Chloride (Normal Saline 0.9%) 1,000 mls @ 1,000 mls/hr IV BOLUS ONE Stop: 03/08/21 18:27 Last Infusion: 03/08/21 18:49 Dose: 0 mls/hr Documented by: Admin: 03/08/21 17:47 Dose: 1,000 mls/hr Documented by: EVAN Losartan Potassium (Losartan 25 Mg Tablet) 25 mg PO DAILY ARACELIS Last Admin: 03/10/21 09:01 Dose: 25 mg Documented by: Admin: 03/09/21 09:23 Dose: 25 mg Documented by: RODRIGO Methylprednisolone (Methylprednisolone 125 Mg/2 Ml Vial) 125 mg IV NOW ONE Stop: 03/08/21 17:12 Last Admin: 03/08/21 17:47 Dose: 125 mg Documented by: EVAN MDM - SOB/Dyspnea Lab Data Attestation: I reviewed the patient's lab results. Result diagrams: 03/09/21 06:03 03/11/21 17:37 Labs: Lab Results 03/08/21 03/08/21 03/08/21 Range/Units 16:30 16:30 16:30 WBC 6.2 (4.5-11.0) X10^3/uL RBC 5.12 (4.5-5.9) X10^6/uL Hgb 16.0 (13.5-17.5) g/dL Hct 48.7 (41-53) % MCV 95.2 (80-100) fL MCH 31.4 (26-34) PG MCHC 32.9 (30-36) % RDW 14.7 (11.6-14.8) % Plt Count 230 (150-400) X10^3/uL Neut % (Auto) 81.6 H (50-75) % Lymph % (Auto) 9.1 L (25-40) % [place] % (Auto) 7.2 (3-14) % Eos % (Auto) 1.3 L (2-4) % Baso % (Auto) 0.8 (0-2) % Neut # (Auto) 5000 (5378-3575) /uL Lymph # (Auto) 600 L (4817-7963) /uL [place] # (Auto) 400 (0-900) /uL Eos # (Auto) 100 (0-450) /uL Baso # (Auto) 100 (0-100) /uL Sodium 134 L (137-145) mmol/L Potassium 4.3 (3.4-5.1) mmol/L Chloride 102 (98-107) mmol/L Carbon Dioxide 23 (22-32) mmol/L BUN 21 H (9-20) mg/dL Creatinine 1.20 (0.66-1.25) mg/dL Estimated GFR 57.8 L (>60) mL/min BUN/Creatinine Ratio 17.5 (6-22) Glucose 128 H (80-110) mg/dL Hemoglobin A1c (4.0-6.0) % Lactate 2.0 (0.7-2.1) mmol/L Calcium 9.4 (8.4-10.2) mg/dL Magnesium (1.6-2.3) mg/dL Total Bilirubin 0.9 (0.2-1.3) mg/dL AST 62 H (17-59) IU/L ALT 64 H (<50) IU/L Alkaline Phosphatase 78 (38-126) U/L Total Creatine Kinase (55-170) U/L CK-MB (CK-2) (<2.37) ng/mL CK-MB (CK-2) Rel Index (1.5-5.0) % Troponin I (0.01-0.034) ng/mL NT-Pro-B Natriuret Pep (<450) pg/mL Total Protein 6.6 (6.3-8.2) g/dL Albumin 3.7 (3.5-5.0) g/dL Globulin 2.9 (1.7-4.1) g/dL Albumin/Globulin Ratio 1.3 (1.0-2.8) SARS-CoV-2 (PCR) (Negative) 03/08/21 03/08/21 03/08/21 Range/Units 16:30 16:30 16:30 WBC (4.5-11.0) X10^3/uL RBC (4.5-5.9) X10^6/uL Hgb (13.5-17.5) g/dL Hct (41-53) % MCV (80-100) fL MCH (26-34) PG MCHC (30-36) % RDW (11.6-14.8) % Plt Count (150-400) X10^3/uL Neut % (Auto) (50-75) % Lymph % (Auto) (25-40) % [place] % (Auto) (3-14) % Eos % (Auto) (2-4) % Baso % (Auto) (0-2) % Neut # (Auto) (2495-9810) /uL Lymph # (Auto) (3786-1427) /uL [place] # (Auto) (0-900) /uL Eos # (Auto) (0-450) /uL Baso # (Auto) (0-100) /uL Sodium (137-145) mmol/L Potassium (3.4-5.1) mmol/L Chloride (98-107) mmol/L Carbon Dioxide (22-32) mmol/L BUN (9-20) mg/dL Creatinine (0.66-1.25) mg/dL Estimated GFR (>60) mL/min BUN/Creatinine Ratio (6-22) Glucose (80-110) mg/dL Hemoglobin A1c 5.5 (4.0-6.0) % Lactate (0.7-2.1) mmol/L Calcium (8.4-10.2) mg/dL Magnesium 2.2 (1.6-2.3) mg/dL Total Bilirubin (0.2-1.3) mg/dL AST (17-59) IU/L ALT (<50) IU/L Alkaline Phosphatase (38-126) U/L Total Creatine Kinase 129 (55-170) U/L CK-MB (CK-2) 7.94 H (<2.37) ng/mL CK-MB (CK-2) Rel Index 6.2 H* (1.5-5.0) % Troponin I 0.049 H (0.01-0.034) ng/mL NT-Pro-B Natriuret Pep 07518 H (<450) pg/mL Total Protein (6.3-8.2) g/dL Albumin (3.5-5.0) g/dL Globulin (1.7-4.1) g/dL Albumin/Globulin Ratio (1.0-2.8) SARS-CoV-2 (PCR) (Negative) 03/08/21 03/08/21 Range/Units 17:22 19:17 WBC (4.5-11.0) X10^3/uL RBC (4.5-5.9) X10^6/uL Hgb (13.5-17.5) g/dL Hct (41-53) % MCV (80-100) fL MCH (26-34) PG MCHC (30-36) % RDW (11.6-14.8) % Plt Count (150-400) X10^3/uL Neut % (Auto) (50-75) % Lymph % (Auto) (25-40) % [place] % (Auto) (3-14) % Eos % (Auto) (2-4) % Baso % (Auto) (0-2) % Neut # (Auto) (2171-0665) /uL Lymph # (Auto) (3101-4047) /uL [place] # (Auto) (0-900) /uL Eos # (Auto) (0-450) /uL Baso # (Auto) (0-100) /uL Sodium (137-145) mmol/L Potassium (3.4-5.1) mmol/L Chloride (98-107) mmol/L Carbon Dioxide (22-32) mmol/L BUN (9-20) mg/dL Creatinine (0.66-1.25) mg/dL Estimated GFR (>60) mL/min BUN/Creatinine Ratio (6-22) Glucose (80-110) mg/dL Hemoglobin A1c (4.0-6.0) % Lactate (0.7-2.1) mmol/L Calcium (8.4-10.2) mg/dL Magnesium (1.6-2.3) mg/dL Total Bilirubin (0.2-1.3) mg/dL AST (17-59) IU/L ALT (<50) IU/L Alkaline Phosphatase (38-126) U/L Total Creatine Kinase (55-170) U/L CK-MB (CK-2) (<2.37) ng/mL CK-MB (CK-2) Rel Index (1.5-5.0) % Troponin I 0.050 H (0.01-0.034) ng/mL NT-Pro-B Natriuret Pep (<450) pg/mL Total Protein (6.3-8.2) g/dL Albumin (3.5-5.0) g/dL Globulin (1.7-4.1) g/dL Albumin/Globulin Ratio (1.0-2.8) SARS-CoV-2 (PCR) Negative (Negative) Imaging Data Chest x-ray: Radiologist's Impression: [address] [id number] ReportSigned Patient: Omi Nowak R#: [id number]: 1935cct:[id number]/Sex: 85 / MDate of Service: 03/08/21Lo: EDAccession Number: [id number] Procedure: XR chest 2V Ordering Provider: Tamara Kate D.O. PROCEDURE: XR CHEST 2V INDICATIONS: shortness of breath TECHNIQUE: 2 views of the chest were acquired. COMPARISON: [facility] , CHEST 2 VIEW, 03/14/2016, 10:45. FINDINGS: Surgical changes and devices: None. Lungs and pleura: There is moderate patchy bilateral perihilar and basilar airspace opacities. Small right greater than left pleural effusions. Mediastinum: Mediastinal contours are normal. Heart size is normal. Bones and chest wall: No suspicious bony abnormalities. Soft tissues appear unremarkable. IMPRESSION: Moderate bilateral pneumonia with small parapneumonic effusions bilaterally. Continued plain film surveillance is recommended to ensure resolution, and to exclude underlying or central malignancy. Dictated by: Chinedu Kaufman M.D. on 03/08/2021 at 16:40 Approved by: Chinedu Kaufman M.D. on 03/08/2021 at 16:40 CT scan - chest: Radiologist's Impression: [address] [id number] Scan ReportSigned Patient: Omi Nowak R#: [id number]: 7Acct:[id number]/Sex: 85 / MDate of Service: 03/08/21Loc: EDAccession Number: [id number] Procedure: CT angio chest PE protocol Ordering Provider: Tamara Kate D.O. PROCEDURE: CT ANGIO CHEST PE PROTOCOL INDICATIONS: pneumonia b/l, cyanosis fingers/toes, swelling leg. TECHNIQUE: After the administration of intravenous contrast, 2 mm thick sections acquired from the pulmonary apices to the posterior costophrenic angles. 3-dimensional maximum intensity projection (MIP) coronal and sagittal reformats were then acquired through the thorax. For radiation dose reduction, the following was used: automated exposure control, adjustment of mA and/or kV according to patient size. COMPARISON: None. FINDINGS: Lungs: Smooth thickening of the interlobular septal lines and scattered mild ground-glass opacities. No focal consolidation. Pleura: Large bilateral pleural effusions with adjacent atelectasis. No pneumothorax. Heart: Heart is enlarged. No pericardial effusion. Reflux of contrast into the IVC and hepatic veins suggesting decreased cardiac output. Chest nodes: Normal. Thyroid gland: Normal Aorta: Normal in size. Pulmonary arteries: No intraluminal filling defect seen Esophagus: Normal. Upper abdomen: Partially visualized left hydronephrosis with cortical thinning versus large multiple parapelvic cysts, not entirely included on the examination. Bones: Spondylitic changes and facet arthropathy. IMPRESSION: No evidence of pulmonary embolism. No aortic dissection identified. Large bilateral pleural effusions with adjacent atelectasis and pulmonary edema. Recommend clinical and laboratory correlation to exclude underlying infection. Cardiomegaly with CT evidence of decreased cardiac output. Partially visualized left hydronephrosis which could be chronic although technically age indeterminate. Differential includes large multiple parapelvic cysts. Recommend clinical correlation and if necessary, renal ultrasound could be performed for further assessment. Dictated by: Teo Dominguez M.D. on 03/08/2021 at 17:59 Approved by: Teo Dominguez M.D. on 03/08/2021 at 18:08 ECG Data Attestation: I personally reviewed and interpreted this ECG as follows: Prior ECG tracings: not available for review Interpretation: Tachycardia with frequent PVCs remove of left atrial enlargement. Left axis deviation with possible LVH patient's rate is 102, P are 180 QRS of 122 and QTC of 490 null [place] is specific change with no prior EKGs for comparison. MDM Narrative Medical decision making narrative: 85-year-old male with increasing shortness of breath as well as discoloration in his hands and swelling in his extremities for the past month. Patient's chest x-ray appears to show bilateral pneumonia but patient does appear to have hands which are some not cyanotic, he does have crackles bilaterally. Patient states he is not a smoker and with his lack of history CT angiography was ordered. CT does not show any signs of pulmonary embolism. No aortic dissection, large bilateral pleural effusions pulmonary edema. Patient has cardiomegaly with evidence decreased cardiac output and partially visualized left hydro which could be chronic but is age indeterminate in the setting of a normal white count with elevated neutrophils. Patient's creatinine is 1.20 with a BNP of almost 12,000 an a troponin of 0.049 and patient is covid negative. Patient was signed out to Dr. Bartlett while awaiting repeat troponin and consultation with Cardiology to help with final disposition of admission versus transfer. Patient does not have any chest pain or pressure and suspect that he has been having worsening CHF which is causing his dyspnea and pleural effusions. Discharge Plan Departure Patient Disposition: Admitted As Inpatient Clinical Impression: Congestive heart failure, Bilateral pleural effusion Admit Date/Time: 03/08/21 22:07 Admit Provider: Karen Dominguez
--- NOTE | 2021-03-11 08:02 | DI.US.S_ITS ---
PROCEDURE: US RENAL COMPLETE INDICATIONS: MAURICE, renal cysts? TECHNIQUE: Real-time scanning was performed of the kidneys and bladder, with image documentation. COMPARISON: [facility], CR, XR CHEST 2V, 03/08/2021, 16:26. [facility], CT, CT ANGIO CHEST PE PROTOCOL, 03/08/2021, 17:39. FINDINGS: Kidneys: Kidneys are normal in size. Right kidney measures 11.5 cm long; left kidney measures 11.9 cm long. Right renal cortical thickness is 1.2 cm; left renal cortical thickness is 1 cm. Renal cortical echotexture is normal. At the inferior pole of the right kidney, there is a likely 9 mm shadowing stone. The left kidney is highly abnormal, with multiple cysts and very little renal parenchyma. The largest is a cluster of cysts versus a septated cyst measuring 9.8 x 5.1 x 5.9 cm. No suspicious solid masses are seen on either side. On these images, no definite hydronephrosis is seen. Bladder: Pre-void bladder volume is 53 mL. Post-void residual measurement was not obtained as the patient did not feel and urge to void. Pre-void images demonstrate no intraluminal masses or stones. On pre-void images, neither of the ureteral jets are noted with color Doppler interrogation. (Of note, ureteral jets may not be detectable in up to 25% of cases due to insufficient differences in specific gravity between ureteral and bladder urine). Miscellaneous: Trace ascites is seen. Moderate bilateral pleural effusions are also seen. IMPRESSION: Abnormal left kidney, with apparent prominent cysts. The recent CT appearance is compatible with severe, chronic hydronephrosis with renal atrophy, however. Apparent 9 mm right lower pole kidney stone. If clinically appropriate, please consider a follow-up dedicated renal mass protocol CT (without and with contrast) (assuming that there is no contraindication). Mild ascites is seen. Moderate bilateral pleural effusions are noted. Dictated by: Greg Block M.D. on 03/11/2021 at 9:46 Approved by: Greg Block M.D. on 03/11/2021 at 9:50
[2021-03-11] MEDS: ALBUTEROL 2.5 MG/3 ML NEB (ADULT) INH ×4 (08:25→23:08)
[2021-03-11] MEDS: BUDESONIDE 0.5 MG/2 ML NEB INH ×2 (08:25→19:03)
[2021-03-11] MEDS: ENOXAPARIN 40 MG/0.4 ML SYRINGE SUBCUT (09:25)
[2021-03-11] MEDS: METOPROLOL IR 25 MG TABLET 12.5 MG PO ×2 (09:26→20:22)
[2021-03-11] MEDS: FUROSEMIDE 40 MG/4 ML VIAL IV (09:26)
[2021-03-11] MEDS: ASPIRIN EC 81 MG TABLET PO (09:26)
--- NOTE | 2021-03-11 11:22 | CM.IDA ---
Initial DCP Assessment Note- Late Entry Pt is an 85 yo male, resident of [facility]. Presented to the ED 03.08.21 w/ severe SOB. Patient inevitably dx w/new and acute CHF. Echo showed a reduced EF at 10-15% PCP: Tyson DeJ esus (last MD seen was Dr Verduzco before he left [facility]) Payer: [facility]/[employer] Reviewed chart, patient seen by Nicole Almanza, ED AGRICULTURAL REAL ESTATE AGENT 03.08.21. Home expected upon DC. According to RN Tiffany, patient is unlikely to meet criteria for HH, patient is indp. and not homebound. However, Tiffany is concerned that patient will not make it to his scheduled medical appts; he especially requires attention from Podiatry d/t the dirty and unkept state of his feet and long, unclipped toe nails upon arrival. Met w/patient yesterday to review DC needs. Patient pleasant and A+O throughout this conversation. Patient confirms he and BamMonik Anna have been together for many years and patient feels things are going well at home, patient does the errands and grocery shopping every week. This AGRICULTURAL REAL ESTATE AGENT discussed doctor and RN concern about the status of patient's feet; patient then admitted that he has not been keeping up on his hygiene needs ie showering, cutting toe and finger nails, and brushing teeth. Patient further explains daily hygiene tasks have been feeling harder for the last few years. Patient appears and sounds perplexed as to why these simple daily tasks are overwhelming to him. This AGRICULTURAL REAL ESTATE AGENT suggested it could be a symptom of depression and anxiety. Patient interested in this and suggested that this was a novel concept to him. This AGRICULTURAL REAL ESTATE AGENT suggested that once patient returns home w/ S.O., that she and he make a plan on how to get to his outpatient appts as scheduled, discuss w/ PCP the things he had shared w/this AGRICULTURAL REAL ESTATE AGENT, and establish w/a vp customer service. Patient appreciative of the visit and voiced no further DC needs. According to Dr Jones, patient is expected to remain admitted until Saturday for stress test. Plan: Home w/S.O. expected upon DC LESVIA Ross Discharge Planning/Care Management CM Discharge Assessment Start: 03/11/21 09:11 Freq: Status: Active Protocol: Document 03/11/21 09:11 KATY (Rec: 03/11/21 09:14 KATY [id number]) Discharge Planning Assessment Assigned Automation Machine Operator LESVIA Flores DPBRAYAN/Assigned Designee Name Anna Locke, S.O. Contact Information [phone] Advance Directives? No History Provided By Patient,Medical Record Prior Living Arrangements House Household Members significant other Type of transporation used prior to Drives own vehicle admit Independent with ADL's Yes Is patient alert and oriented? Yes Barriers to Discharge No Discharge Plan Home Transportation Arrangement S.O. or friend Additional Comment PCP appt scheduled for 3 ( Dr Tyson De Jesus), needs referral to Podiatry Whiteboard Updated in Patient Room with Yes name and ext. # of Automation Machine Operator
--- NOTE | 2021-03-11 14:20 | PT.IIE ---
Current Diagnoses Heart failure, unspecified (03/08/21) Surgical History (Last Updated 03/09/21 @ 03:34 by CARMINA Araujo) No history of previous surgery Physical Therapy Inpatient Evaluation/Re-Eval M1 PT/OT-IP Prior Functional Status Start: 03/11/21 16:06 Freq: NEEDED Status: Active Protocol: Document 03/11/21 14:20 AB (Rec: 03/11/21 16:21 AB [id number]) Medical Review Prior Functional Status Medical History Reviewed Yes Communication able to make needs known Mobility and Gait pt stated that he is independent with all mobilities and ambulation without AD; stated that for the passed few weeks, his mobility and balance is getting worse but has not fallen but has had LOB Social History Household Members significant other Living Arrangements House Number of Floors (Floors) Two Floors Number of Stairs To Enter/Railing? 8 steps L rail descending to the house to enter has 14 steps L rail down to basement are Home Environment Standard Height Toilet,Tub/ Shower Home Equipment Front Wheel Walker,Hand Held Shower Employment Status Retired M2 PT-IP Current Condition Start: 03/11/21 16:06 Freq: NEEDED Status: Active Protocol: Document 03/11/21 14:20 AB (Rec: 03/11/21 16:21 AB [id number]) Physical Therapy Current Condition Current Condition Evaluation Date 03/11/21 Treatment Diagnosis CHF; difficulty in walking Onset Date 03/08/21 Precautions Other Precautions falls M3 PT-IP Subjective Start: 03/11/21 16:06 Freq: NEEDED Status: Active Protocol: Document 03/11/21 14:20 AB (Rec: 03/11/21 16:21 AB [id number]) Subjective Physical Therapy Visit Type Type Initial Evaluation Visit Start Time 14:20 Visit Stop Time 14:55 Total Visit Minutes 35 Number of LEADERSHIP PROGRAM ASSOCIATE Visits 0 Physical Therapy Visit Comments Patient Comments pt is agreeable to do PT M4 PT-IP Mobility and Gait Start: 03/11/21 16:06 Freq: NEEDED Status: Active Protocol: Document 03/11/21 14:20 AB (Rec: 03/11/21 16:21 AB [id number]) PT-Bed Mobility Assessment Supine to Sit Supine to Sit Standby Assistance Sit to Supine Sit to Supine Standby Assistance PT-Transfer Assessment Sit to and From Stand Sit to and from Stand Minimal Assistance,Moderate Assistance,1 Person Assistance ,Use of Upper Extremities Equipment Transfer Assistive Device Gait Belt Orthotic/Prosthetic Devices or Brace: No Comments Mobility Comments pt supine in bed and agreed to do PT. completed supine to sit SBA. pt can be impulsive and cued to slow down for safety. completed sit to stand min to mod A and cues and ambulated in room without AD mod to max A and max cues. pt tends to hold on to zhang/ things around him for stability. (+) LOB posteriorly requiring max A for recovery and cues. educated pt on safety and use of FWW. completed sit to stand min A and ambulated using FWW 25 ft min to mod A and cues. pt continues to have unsteady gait with LOB and cued to use FWW for support. educated pt on safety and increasing awareness of trunk position and increase MERCEDEZ. completed ambulation again and completed min A and cues using FWW in room. Pt tends to cross RLE over midline and cues to increas MERCEDEZ during standing and ambulation. pt requested to go back to bed . completed sit to supine SBA. positioned in bed. call light and table placed within reach. Gait Assessment Gait Gait Assistance Required: Minimum Assistance,Moderate Assistance,Maximum Assistance, 1 Person Assist Distance (Feet) 25 Assistive Devices Assistive Device None,Gait Belt,Front Wheeled Walker Orthotic/Prosthetic Devices or Brace: No Gait Deviations General Gait Pattern Antalgic,Decreased Stride Length,Decreased Feet Clearance,Narrow Based Gait, Step-to Gait Factors Limiting Gait Function Factors Limiting Gait Function Decreased Activity Tolerance, Decreased Strength,Pain,Poor Balance,Poor Safety Awareness Comments Gait Comments pls refer to mobility section for details PT-Balance Assessment Sitting Balance and Reactions Static Sitting Balance Ability Good Dynamic Sitting Balance Ability Good Standing Balance and Reactions Static Standing Balance Ability Fair Dynamic Standing Balance Ability Fair Device Used FWW M5 PT-IP Objective Assessments Start: 03/11/21 16:06 Freq: NEEDED Status: Active Protocol: Document 03/11/21 14:20 AB (Rec: 03/11/21 16:21 AB [id number]) Orientation Orientation/Cognition Level of Alertness Alert Orientation Name Language Function Ability No Deficits Noted Safety Awareness Decreased Safety Awareness Gross Range of Motion Lower Extremity ROM Assessment Within Functional Limits Strength Comments Strength Comments RLE: 3+/5 LLE: 4-/5 presents with bilateral LE edema Sensation Assessment Sensation Gross Sensation WNL Muscle Tone Muscle Tone WNL Yes M6 PT-IP Treatment Start: 03/11/21 16:06 Freq: NEEDED Status: Active Protocol: Document 03/11/21 14:20 AB (Rec: 03/11/21 16:21 AB [id number]) Physical Therapy Treatment Education Education Provided Safety M7 PT-IP Assessment and Plan Start: 03/11/21 16:06 Freq: NEEDED Status: Active Protocol: Document 03/11/21 14:20 AB (Rec: 03/11/21 16:21 AB [id number]) PT Summary Assessment and Plan Potential Rehabilitation Potential Fair Status of Condition at Evaluation Stable Summary Impairments Pain,ROM,Strength,Balance, Coordination,Sensation,Bed Mobility,Transfers,Gait, Activity Tolerance Assessment Summary pt requiring min to mod A with mobility and presents with unsteady gait and decrease activity tolerance affecting mobility independence. pt plans to go home and his SO will be able to assist but at this time may require SNF rehab. will continue to assess progress for safe d/c. Goals Bed Mobility Goal Independent Transfer Goal Independent,Front Wheeled Walker Gait Goal Independent,Front Wheel Walker Gait Distance 150 Other Goals improve ambulation without AD 150 ft SBA up/down 8 steps L rail descending SBA Days to Meet Goals 10 Frequency of Treatment Frequency Of Treatment Once a Day Treatment Plan Physical Therapy Treatment Plan Bed Mobility Training,Transfer Training,Gait Training, Therapeutic Exercise,Balance Retraining,Discharge Planning, Neuromuscular Re-ed, Coordination Retraining Precautions Other Precautions falls Recommendations To Nursing Amount of Assist Needed 1 Person Assist Discharge Recommendations PT Discharge Recommendations SNF Rehab Transportation Needs at Discharge Wheelchair/Cabulance
[2021-03-11 18:04] LABS: BUN Creatinine Ratio 25.7 (6-22); Blood Urea Nitrogen 35 mg/dL (9-20); Calcium 8.8 mg/dL (8.4-10.2); Carbon Dioxide 29 mmol/L (22-32); Chloride 103 mmol/L (98-107); Glucose 105 mg/dL (80-110); Potassium 3.9 mmol/L (3.4-5.1); Sodium 139 mmol/L (137-145)
[2021-03-11 18:05] LABS: HEMOLYSIS 57 (0-50)
--- NOTE | 2021-03-11 18:16 | P.PN_ITS ---
Subjective Subjective Date Patient Seen: 03/11/21 Time Patient Seen: 10:17 Interval history: Today he feels his shortness of breath is improving. He has been urinating well. He still has some shortness of breath with activity Exam Vital Signs (past 8 hours): - 03/11/21 13:00 03/11/21 13:35 03/11/21 15:15 Temperature 98 F 99.1 F Pulse Rate 81 85 82 Respiratory Rate 16 16 18 Blood Pressure 125/79 109/71 Pulse Oximetry 95 97 Oxygen Delivery Method Room Air Oxygen Flow Rate 0 Narrative Exam Narrative: Gen: chronically ill appearing, no acute distress HEENT: normocephalic, atraumatic, conjunctiva clear, sclera non-icteric, poor dentition, moist mucous membranes Neck: no JVD, trachea is midline Resp: diminished breath sounds bilateral bases, crackles bilaterally CV: regular rate and rhythm, no murmur or rubs Abd: soft, non-tender, normal bowel sounds Skin: warm, no rashes, mild venous stasis changes b/l Lower extremities. Toenail's with fungal infection Neuro: Alert and oriented X 3 w/no focal deficits. Speech clear Extremities: moves all extremities, 2+ pitting edema bilaterally. Psyche: normal mood and affect. Objective Labs Result Diagrams: 03/09/21 06:03 03/11/21 17:37 Labs: Laboratory Results - last 24 hr 03/11/21 17:37 Sodium 139 Potassium 3.9 Chloride 103 Carbon Dioxide 29 BUN 35 H Creatinine 1.36 H Estimated GFR 50.0 L BUN/Creatinine Ratio 25.7 H Glucose 105 Calcium 8.8 Magnesium 2.0 PFSH Surgical History (Updated 03/09/21 @ 03:34 by CARMINA Araujo) No history of previous surgery Family History (Updated 03/09/21 @ 03:35 by CARMINA Araujo) Mother Uterine cancer Father Lung cancer Social History household members: significant other Smoking Status: Never smoker alcohol intake: current Assessment & Plan Assessment & Plan narrative: 85M with PMH presumed asthma according to prior documentation who was admitted with shortness of breath and presumed heart failure. Echo shows mixed systolic and diastolic function with a severely reduced EF at 10-15% 1. 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 -patient started on metoprolol succinate 12.5 mg b.i.d. and losartan 25 mg daily. Likely will need to start aldactone depending on symptoms once more euvolemic. -held losartan on 03/11 given MAURICE -previous provider discussed with Cardiology, Dr. Peraza, who recommended stress testing as inpatient once euvolemic, however this will take a few days to achieve. -risk stratification: Patient is not diabetic, lipid panel shows TC 122, LDL 71, HDL 42. TG 45. TSH 1.34 -Continue diuresis with 40 mg IV BID or daily as able. Started fluid restriction today which will likely help as he has been drinking quite a bit of fluid, he is around net neutral intake and output. Depending on output today, may need increase in furosemide tomorrow. -continue telemetery, no events thus far. 2. Reactive airway disease, chronic -patient is currently oxygenating well, no wheezing. -replace home fluticasone salmeterol with pulmicort and albuterol. 3. Bilateral pleural effusions, acute, present on admission. - likely secondary to heart failure and volume overload. No respiratory distress currently. Consider thoracentesis if no improvement in symptoms with ad equate diuresis. 4. Elevated troponin, acute present on admission - peaked at 0.055. Likely in setting of decompensated heart failure. No EKG changes consistent with acute ischemia and patient denied chest pain. 5. MAURICE - etiology unclear - possibly from diuresis, BUN also rising as well as creatinine - on admission creatinine 1.2, sven to 1.46, now 1.36 - BUN increased from 21->35 - give lasix only once today - recheck lytes in AM 6. Kidney cysts - noted to have an abnormal left kidney with little renal parenchyma - unclear etiology - will discuss with urology about appropriate follow up 7. R kidney stone - not currently obstructing, 9mm in size - monitor symptoms closely VTE prophylaxis: Enoxaparin 40 mg subQ daily Dispo: Patient is admitted under inpatient status. Likely discharge home after diuresis and will likely require stress testing prior to discharge as recommended above by cardiology. Code Status: Full Code as discussed with patient, surrogate is Anna, his ho usemate Quality VTE Deep Vein Thrombosis/Pulmonary Embolism Present on Admission: No
--- NOTE | 2021-03-11 18:22 | PC.NURSE ---
Addendum entered by Alyssa Brock R.N. 03/11/21 20:55: Pt given iv lasix as per emar this evening shift. Pt stands @ bedside with walker for urinal use. Does report soreness to buttocks. Inner buttocks BL are reddened. Barrier cream liberally applied and brief changed. Pt does position self independently in bed and alternates side/back/sitting. Original Note: Pt sleeping in bed @ beginning of shift. Now awake for evening meal. Hearty appetite. Fluid restriction observed. Pt denies nausea, denies pain. Pt's hands and feet BL are deep red in color when in dependent positioning. Pt does not admit this as baseline. Pitting edema to feet BL with palpable pedal pulses BL. Several scattered abraded areas to BL LE's. Pt denies dyspnea at rest.
[2021-03-11] MEDS: FUROSEMIDE 20 MG/2 ML VIAL IV (18:49)
[2021-03-12] VITALS (20 sets, daily range): BP systolic 104–130; BP diastolic 60–82; PULSE 83–100; RESP 14–18; TEMP 36.4–37.3; O2SAT 95–97
[2021-03-12] MEDS: ALBUTEROL 2.5 MG/3 ML NEB (ADULT) INH ×6 (03:42→23:34)
[2021-03-12 06:46] LABS: Hematocrit 44.4 % (41-53); Hemoglobin 14.7 g/dL (13.5-17.5); Mean Corpuscular Hemoglobin 31.1 PG (26-34); Mean Corpuscular Volume 94.3 fL (80-100); Platelet Count 217 X10^3/uL (150-400); Red Blood Cell Count 4.71 X10^6/uL (4.5-5.9); Red Cell Distribution Width 14.4 % (11.6-14.8); White Blood Cell Count 5.1 X10^3/uL (4.5-11.0)
[2021-03-12 07:03] LABS: BUN Creatinine Ratio 23.9 (6-22); Blood Urea Nitrogen 34 mg/dL (9-20); Calcium 8.5 mg/dL (8.4-10.2); Carbon Dioxide 31 mmol/L (22-32); Chloride 104 mmol/L (98-107); Estimated Glomerular Filt Rate 47.6 mL/min (>60); Glucose 104 mg/dL (80-110); HEMOLYSIS < 15 (0-50); Magnesium 2.2 mg/dL (1.6-2.3); Potassium 3.5 mmol/L (3.4-5.1); Sodium 141 mmol/L (137-145)
[2021-03-12] MEDS: BUDESONIDE 0.5 MG/2 ML NEB INH ×2 (07:55→19:48)
[2021-03-12] MEDS: METOPROLOL IR 25 MG TABLET 12.5 MG PO ×2 (09:18→22:40)
[2021-03-12] MEDS: ENOXAPARIN 40 MG/0.4 ML SYRINGE SUBCUT (09:18)
[2021-03-12] MEDS: SODIUM CHLORIDE 0.9% FLUSH 10 ML IV ×3 (09:18→20:00)
[2021-03-12] MEDS: ASPIRIN EC 81 MG TABLET PO (09:18)
[2021-03-12] MEDS: FUROSEMIDE 40 MG/4 ML VIAL IV (09:18)
--- NOTE | 2021-03-12 12:43 | DI.CT.S_ITS ---
PROCEDURE: CT ABDOMEN PELVIS WO CON INDICATIONS: left kidney hydronephrosis/cysts, ?mass ?obstructing stone TECHNIQUE: Noncontrast 5 mm thick sections acquired from the diaphragms to the symphysis. 5 mm coronal and sagittal reformats were then performed. For radiation dose reduction, the following was used: automated exposure control, adjustment of mA and/or kV according to patient size. COMPARISON: [facility], US, US RENAL COMPLETE, 03/11/2021, 8:25. [facility], CT, CT ANGIO CHEST PE PROTOCOL, 03/08/2021, 17:39. FINDINGS: Image quality: There is artifact associated with the metallic hardware. ABDOMEN: Lung bases: Small bilateral pleural effusions are seen, overlying atelectasis. The pleural effusions have decreased in size compared to 03/08/2021. Heart size is mildly enlarged. Solid organs: Liver is normal in size. Gallbladder is largely collapsed at the time of this study. Pancreas is normal in contours. Spleen is normal in size. No adrenal nodules. The left kidney is composed nearly entirely of cysts. The appearance is most consistent with chronic obstruction, with associated prominent atrophy. Differential diagnosis would include peripelvic cysts, yet this is considered to be less likely. At the inferior pole of the left kidney, there are nonobstructing stones seen that measure up to 4 mm. On the right, nonobstructing stones are also seen, which also measure up to 4 mm. Mild right-sided hydronephrosis and hydroureter can be seen, without a cause of obstruction seen. Peritoneum and bowel: Unenhanced bowel loops demonstrate normal wall thickness and caliber. No free fluid or air. There is a moderate amount of stool seen within the colon. Nodes and vessels: No retroperitoneal or mesenteric adenopathy by size criteria. Aorta and inferior vena cava are normal in caliber. Miscellaneous: No ventral hernias. PELVIS: Genitourinary: Bladder wall thickness is normal. The urinary bladder is prominent in size. Miscellaneous: There is a large right inguinal hernia seen, which contains colon and nondilated small bowel. No inguinal adenopathy. 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 No suspicious bony lesions. No vertebral body compression fractures. This patient has transitional lumbar anatomy. For the purposes of this examination, the level with the last well-developed pair of ribs is considered to be T12. By this numbering scheme, the S1 level is transitional and is partially lumbarized on the left. Mild dextroconvex scoliotic curvature is seen. Degenerative changes are seen throughout, particularly involving the lower lumbar spine. IMPRESSION: Abnormal left kidney, which is highly atrophic, with almost no cortex seen. The appearance is most consistent with chronic obstruction with atrophy. Nonobstructing bilateral renal stones are seen. On the right, there is mild hydronephrosis and hydroureter, without a cause of obstruction identified. Enlarged urinary bladder. Please correlate with bladder outlet obstruction. There is a large right inguinal hernia seen, which contains nondilated large and small bowel. Surgical consultation is recommended. Small bilateral pleural effusions are seen, which have decreased in size compared to the prior CT. There is a moderate amount of stool seen within the colon. Please correlate with an underlying history of constipation. 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 on 03/12/2021 at 12:58 Approved by: Greg Block M.D. on 03/12/2021 at 13:06
--- NOTE | 2021-03-12 14:29 | P.DS_ITS ---
History of Present Illness History of Present Illness Chief complaint: SOB Narrative: H and P per Karen Dominguez: Omi Nowak is a 89-year-old male with the only diagnosis of having asthma presented to the emergency department with severe shortness of breath. States he has been unable to walk for much more than 100 ft and that this is been going on for 2 weeks. He also endorses feeling lightheaded when he gets up. He denies fevers sweats or chills, he coughs to release moisture from his lungs but does not have chronic cough, he states that he has poor hygiene in his mouth and he is worried about if his poor oral dentition might be contributing to problems in his heart, he denies any chest pain, palpitations, or pain with breathing, he denies any nausea vomiting, dysuria, weakness but does endorse fatigue, he denies any diarrhea or constipation. Chest x-ray in ordered in the ED indicated bilateral pleural effusions and CT of the chest indicated ?Large bilateral pleural effusions with adjacent atelectasis and pulmonary edema. Recommend clinical and laboratory correlation to exclude underlying infection.Patient is afebrile, blood pressure 121/61, heart rate 92, respiratory rate of 18, oxygen saturation 97% on room air, he weighs 79.3 kg with a BMI of 26. WBC is unremarkable, he is mildly hyponatremic with a sodium of 134, BUN is 21, creatinine 1.20, GFR is glucose was 128, he is not diabetic with a hemoglobin A1c of 5.5, AST 62, ALT 64, CK-MB is 7.94, CK-MB relative index 6.2, troponin was initially 0.049, then increased to 0.050, and is now 0.055, his NT proBNP is almost 12,000, COVID-19 PCR is negative. Discharge Providers Provider Date of admission: 03/08/21 22:07 Consults: 03/08/21 17:04 Consult to MORTGAGE SERVICING SPECIALIST - Branch Service Representative Stat Comment: 03/11/21 11:15 Consult to Physical Therapy Evaluate & Treat Comment: Physician Instructions: Evaluate and Treat Discharge provider: Devonte Jones MD Exam Vital Signs (past 8 hours): - 03/12/21 07:48 03/12/21 07:57 03/12/21 10:00 Temperature 98.2 F Pulse Rate 85 83 Respiratory Rate 16 14 Blood Pressure 129/82 Pulse Oximetry 97 96 96 03/12/21 11:10 03/12/21 11:15 Temperature 97.8 F Pulse Rate 87 87 Respiratory Rate 18 16 Blood Pressure 130/75 Pulse Oximetry 97 95 Oxygen Delivery Method Room Air Oxygen Flow Rate 0 Objective Labs Result Diagrams: 03/12/21 06:10 03/12/21 06:10 Labs: Laboratory Results - last 24 hr 03/11/21 03/12/21 03/12/21 17:37 06:10 06:10 WBC 5.1 RBC 4.71 Hgb 14.7 Hct 44.4 MCV 94.3 MCH 31.1 MCHC 33.0 RDW 14.4 Plt Count 217 Sodium 139 141 Potassium 3.9 3.5 Chloride 103 104 Carbon Dioxide 29 31 BUN 35 H 34 H Creatinine 1.36 H 1.42 H Estimated GFR 50.0 L 47.6 L BUN/Creatinine Ratio 25.7 H 23.9 H Glucose 105 104 Calcium 8.8 8.5 Magnesium 2.0 2.2 PFSH Surgical History No history of previous surgery Family History (Updated 03/09/21 @ 03:35 by CARMINA Araujo) Mother Uterine cancer Father Lung cancer Social History household members: significant other Smoking Status: Never smoker alcohol intake: current Discharge Plan Discharge orders & Medications Prescriptions: No Action albuterol sulfate 90 mcg/actuation HFA aerosol inhaler 2 puff inhalation QID PRN (Reason: shortness of breath or wheezing) Qty: 6.7 RF: 1 fluticasone propion-salmeterol [Wixela Inhub] 500-50 mcg/dose blister with device 1 inh inhalation BID Qty: 1 RF: 1 montelukast 10 mg tablet 10 mg PO DAILY RF: 0 Visit Report/Discharge Packet Instructions: DI for Heart Failure, Low-Sodium Diet, How to [place] With Heart Failure Quality VTE Deep Vein Thrombosis/Pulmonary Embolism Present on Admission: No
--- NOTE | 2021-03-12 14:32 | PT.IPTN ---
Addendum entered and electronically signed by Catrina Henriquez PT 03/12/21 15:17: Hospitalist in at beginning of session to discuss tele readings but cleared pt to work with PT. Pt denied symptoms and remained asymptomatic with stable VS throughout treatment. Original Note: Current Diagnoses Heart failure, unspecified (03/08/21) Physical Therapy Treatment Note M2 PT-IP Current Condition Start: 03/11/21 16:06 Freq: NEEDED Status: Active Protocol: Document 03/11/21 14:20 AB (Rec: 03/11/21 16:21 AB [id number]) Physical Therapy Current Condition Current Condition Evaluation Date 03/11/21 Treatment Diagnosis CHF; difficulty in walking Onset Date 03/08/21 Precautions Other Precautions falls M3 PT-IP Subjective Start: 03/11/21 16:06 Freq: NEEDED Status: Active Protocol: Document 03/12/21 14:32 AW (Rec: 03/12/21 15:17 AW [id number]) Subjective Physical Therapy Visit Type Type Treatment Note Visit Start Time 14:14 Visit Stop Time 14:32 Total Visit Minutes 18 Number of MOLDING AND TRIM 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 Visits 0 Physical Therapy Visit Comments Patient Comments pt is agreeable to do PT M4 PT-IP Mobility and Gait Start: 03/11/21 16:06 Freq: NEEDED Status: Active Protocol: Document 03/12/21 14:32 AW (Rec: 03/12/21 15:17 AW [id number]) PT-Bed Mobility Assessment Supine to Sit Supine to Sit Standby Assistance PT-Transfer Assessment Sit to and From Stand Sit to and from Stand Contact Guard Assistance,1 Person Assistance,Use of Upper Extremities Equipment Transfer Assistive Device Gait Belt,Front Wheeled Walker Orthotic/Prosthetic Devices or Brace: No Transfers Transfer Destination Chair Transfer Technique amb with fww Transfer Ability Level of Assist Standby Assistance Comments Mobility Comments Pt completed supine to sit SBA . BP 106/68 HR 88. Pt stood CGA and ambulated in the halls with FWW SBA to CGA with one posterior and one lateral (+) LOB requiring min assist for recovery. On return to the room, pt sat on the chair. BP 113/65 HR 91. Gait Assessment Gait Gait Assistance Required: Standby Assistance,Contact Guard Assist,Minimum Assistance,1 Person Assist Distance (Feet) 200 Assistive Devices Assistive Device Gait Belt,Front Wheeled Walker Orthotic/Prosthetic Devices or Brace: No Gait Deviations General Gait Pattern Antalgic,Decreased Stride Length,Decreased Feet Clearance,Narrow Based Gait, Step-to Gait Factors Limiting Gait Function Factors Limiting Gait Function Decreased Activity Tolerance, Decreased Strength,Pain,Poor Balance,Poor Safety Awareness Comments Gait Comments Pt ambulates with NBOS, able to widen in response to cues but reverts to NBOS quickly. Pt with two (+) LOB during ambulation - see mobility comments. PT-Balance Assessment Sitting Balance and Reactions Static Sitting Balance Ability Good Dynamic Sitting Balance Ability Good Standing Balance and Reactions Static Standing Balance Ability Fair Dynamic Standing Balance Ability Fair Device Used FWW M5 PT-IP Objective Assessments Start: 03/11/21 16:06 Freq: NEEDED Status: Active Protocol: Document 03/11/21 14:20 AB (Rec: 03/11/21 16:21 AB [id number]) Orientation Orientation/Cognition Level of Alertness Alert Orientation Name Language Function Ability No Deficits Noted Safety Awareness Decreased Safety Awareness Gross Range of Motion Lower Extremity ROM Assessment Within Functional Limits Strength Comments Strength Comments RLE: 3+/5 LLE: 4-/5 presents with bilateral LE edema Sensation Assessment Sensation Gross Sensation WNL Muscle Tone Muscle Tone WNL Yes M6 PT-IP Treatment Start: 03/11/21 16:06 Freq: NEEDED Status: Active Protocol: Document 03/12/21 14:32 AW (Rec: 03/12/21 15:17 AW [id number]) Physical Therapy Treatment Education Education Provided Safety M7 PT-IP Assessment and Plan Start: 03/11/21 16:06 Freq: NEEDED Status: Active Protocol: Document 03/12/21 14:32 AW (Rec: 03/12/21 15:17 AW [id number]) PT Summary Assessment and Plan Potential Rehabilitation Potential Fair Summary Impairments Pain,ROM,Strength,Balance, Coordination,Sensation,Bed Mobility,Transfers,Gait, Activity Tolerance Progress Towards Goals Progressing Toward Goals,Slow Progress due to Medical Issues Assessment Summary Pt able to increase gait distance this date without ROCHA . Unsteady gait continues as evidenced by two (+) LOB during ambulation this date. Pt will need to improve independent mobility. Pt planning to discharge home with SO support. Will continue to assess. Pt must complete stairs prior to discharge if going home Goals Bed Mobility Goal Independent Transfer Goal Independent,Front Wheeled Walker Gait Goal Independent,Front Wheel Walker Gait Distance 150 Other Goals improve ambulation without AD 150 ft SBA up/down 8 steps L rail descending SBA Days to Meet Goals 10 Frequency of Treatment Frequency Of Treatment Once a Day Treatment Plan Physical Therapy Treatment Plan Bed Mobility Training,Transfer Training,Gait Training, Therapeutic Exercise,Balance Retraining,Discharge Planning, Neuromuscular Re-ed, Coordination Retraining Other Recommendations and Next Treatment gait training with FWW; stairs Focus Precautions Other Precautions falls Recommendations To Nursing Amount of Assist Needed 1 Person Assist Discharge Recommendations PT Discharge Recommendations Home vs SNF Transportation Needs at Discharge Private Vehicle,Wheelchair/ Cabulance
--- NOTE | 2021-03-12 14:46 | PC.NURSE ---
Patient went to CT scan and after return had abnormal TEle reading that ICU called about. Patient's reading was abnormal and inverted QRS. Dr. Jones notified and a STAT EKG was ordered.
[2021-03-12 15:49] LABS: BUN Creatinine Ratio 27.1 (6-22); Blood Urea Nitrogen 39 mg/dL (9-20); Calcium 8.6 mg/dL (8.4-10.2); Carbon Dioxide 32 mmol/L (22-32); Chloride 104 mmol/L (98-107); Estimated Glomerular Filt Rate 46.9 mL/min (>60); Glucose 121 mg/dL (80-110); HEMOLYSIS < 15 (0-50); Magnesium 2.2 mg/dL (1.6-2.3); Potassium 3.4 mmol/L (3.4-5.1); Sodium 143 mmol/L (137-145)
[2021-03-12 15:50] LABS: Phosphorous 4.3 mg/dL (2.3-3.7)
--- NOTE | 2021-03-12 16:27 | PC.NURSE ---
Addendum entered by Alyssa Brock R.N. 03/12/21 22:27: Per FOOD COURT TEAM MEMBER's, pt experienced three episodes of vtach (6 beats each) over 30 minute time frame. Pt is asymptomatic with bp 111/[address] Gill was contacted by phone and order received by MD to give evening dose of metoprolol which this senior grant writer informed MD had been ordered held in preparation for stress test in a.m. Med given. Addendum entered by Alyssa Brock R.N. 03/12/21 21:48: In discussing pt's telemetry and cardiac function, Dr. Jones (prior to his departure from hospital) was made aware by this senior grant writer pt experienced several beats run of SVT Saturday evening, and per report Saturday night. FOOD COURT TEAM MEMBER, Pearl, now reports pt experienced 6 beat run of vtach. Pt lying quietly in bed awake, alert, quiet. Addendum entered by Alyssa Brock R.N. 03/12/21 20:35: Returned to bed with waffle cushion under buttocks. Head of bed elevated and resting quietly with eyes closed. Addendum entered by Alyssa Brock R.N. 03/12/21 19:29: Hold beta jose m this evening per Dr. Jones. MD also made aware this senior grant writer provided pt with chocolate ice cream as per pt's request prior to this senior grant writer seeing order for NM study in a.m. Should be no problem per MD. Pt now caffeine/chocolate free pending exam in a.m. Addendum entered by Alyssa Brock R.N. 03/12/21 18:47: Per Dr. Jones's orders, pt was straight cathed. Pt voided in urinal just prior to catheterization for 275 cc/s. Straight cathed for 200 cc's. Easily passed 14 Fr catheter without any resistance or difficulty. Pt was provided with thorough explanation for procedure and during procedure. Returned to sitting up in chair following in bed for straight cath. Pedal pulses present BL with doppler. Original Note: Per Dr. Jones's verbal order, pt was bladder scanned for 320 cc's. Payton placement only if > 400 cc/s per . Dr. Jones aware of current scan result. Pt denies pain. Admits to some shortness of breath today with activity. No wheezes auscultated. Diminished breath sounds to right lower posterior lobe. No dyspnea at rest. Pitting edema to feet BL 2-3+ in dependent position. Waffle cushion provided for pt's c/o soreness to buttocks.
[2021-03-12] MEDS: POTASSIUM CHLORIDE 20 MEQ/15 ML UDC 40 MEQ PO (16:51)
[2021-03-12] MEDS: FUROSEMIDE 20 MG/2 ML VIAL IV (16:52)
--- NOTE | 2021-03-12 17:00 | P.PN_ITS ---
Subjective Subjective Date Patient Seen: 03/12/21 Time Patient Seen: 09:00 Interval history: Today he feels like his shortness of breath is improving. He does have intermittent dizziness with walking around. He does note he has a chronic R groin hernia. No pain Exam Vital Signs (past 8 hours): - 03/12/21 10:00 03/12/21 11:10 03/12/21 11:15 Temperature 97.8 F Pulse Rate 87 87 Respiratory Rate 18 16 Blood Pressure 130/75 Pulse Oximetry 96 97 95 03/12/21 14:00 03/12/21 15:15 03/12/21 15:46 Temperature 99.1 F Pulse Rate 86 86 Respiratory Rate 17 16 Blood Pressure 104/63 Pulse Oximetry 95 96 96 Oxygen Delivery Method Room Air Oxygen Flow Rate 0 Narrative Exam Narrative: Gen: chronically ill appearing, no acute distress HEENT: normocephalic, atraumatic, conjunctiva clear, sclera non-icteric, poor dentition, moist mucous membranes Neck: no JVD, trachea is midline Resp: diminished breath sounds bilateral bases, crackles bilaterally but much improved CV: regular rate and rhythm, no murmur or rubs Abd: soft, non-tender, normal bowel sounds Skin: warm, no rashes, mild venous stasis changes b/l Lower extremities. Toenail's with fungal infection Neuro: Alert and oriented X 3 w/no focal deficits. Speech clear Extremities: moves all extremities, 2+ pitting edema bilaterally. Psyche: normal mood and affect. Objective Labs Result Diagrams: 03/12/21 06:10 03/12/21 15:30 Labs: Laboratory Results - last 24 hr 03/11/21 03/12/21 03/12/21 17:37 06:10 06:10 WBC 5.1 RBC 4.71 Hgb 14.7 Hct 44.4 MCV 94.3 MCH 31.1 MCHC 33.0 RDW 14.4 Plt Count 217 Sodium 139 141 Potassium 3.9 3.5 Chloride 103 104 Carbon Dioxide 29 31 BUN 35 H 34 H Creatinine 1.36 H 1.42 H Estimated GFR 50.0 L 47.6 L BUN/Creatinine Ratio 25.7 H 23.9 H Glucose 105 104 Calcium 8.8 8.5 Phosphorus Magnesium 2.0 2.2 03/12/21 03/12/21 15:30 15:30 WBC RBC Hgb Hct MCV MCH MCHC RDW Plt Count Sodium 143 Potassium 3.4 Chloride 104 Carbon Dioxide 32 BUN 39 H Creatinine 1.44 H Estimated GFR 46.9 L BUN/Creatinine Ratio 27.1 H Glucose 121 H Calcium 8.6 Phosphorus 4.3 H Magnesium 2.2 PFSH Surgical History No history of previous surgery Family History (Updated 03/09/21 @ 03:35 by CARMINA Araujo) Mother Uterine cancer Father Lung cancer Social History household members: significant other Smoking Status: Never smoker alcohol intake: current Assessment & Plan Assessment & Plan narrative: 85M with PMH presumed asthma according to prior documentation who was admitted with shortness of breath and presumed heart failure. Echo shows mixed systolic and diastolic function with a severely reduced EF at 10-15% 1. 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 -patient started on metoprolol succinate 12.5 mg b.i.d. and losartan 25 mg daily. Likely will need to start aldactone depending on symptoms once more euvolemic. -held losartan on 03/11 given MAURICE -previous provider discussed with Cardiology, Dr. Peraza, who recommended stress testing as inpatient once euvolemic, plan for 03/13 -risk stratification: Patient is not diabetic, lipid panel shows TC 122, LDL 71, HDL 42. TG 45. TSH 1.34 -Continue diuresis with 40 mg IV BID as able. On fluid restriction which will likely help as he has been drinking quite a bit of fluid, he is around net neutral intake and output. Depending on output today, may need increase in furosemide tomorrow. -continue telemetery, no events thus far. -overall cumulative net negative -7L this hospital stay 2. Reactive airway disease, chronic -patient is currently oxygenating well, no wheezing. -replace home fluticasone salmeterol with pulmicort and albuterol. 3. Bilateral pleural effusions, acute, present on admission. - likely secondary to heart failure and volume overload. No respiratory distress currently. Consider thoracentesis if no improvement in symptoms with adequate diuresis. - significant improve in pleural effusions with diuresis 4. Elevated troponin, acute present on admission - peaked at 0.055. Likely in setting of decompensated heart failure. No EKG changes consistent with acute ischemia and patient denied chest pain. 5. MAURICE - etiology unclear - possibly from diuresis, BUN also rising as well as creatinine - on admission creatinine 1.2, now has been approximately 1.4 - BUN increased from 21->39 - recheck lytes in AM 6. 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 R kidney stone - not currently obstructing, 9mm in size - monitor symptoms closely - R kidney has mild hydronephrosis, has distended bladder on CT, but bladder s can shows ~300cc, will attempt straight cath to see if retaining 8. R inguinal hernia - patient asymptomatic - will need surgery follow up as outpatient VTE prophylaxis: Enoxaparin 40 mg subQ daily Dispo: Patient is admitted under inpatient status. Likely discharge home after diuresis and will likely require stress testing prior to discharge as recommended above by cardiology. Code Status: Full Code as discussed with patient, surrogate is Anna, his housemate Quality VTE Deep Vein Thrombosis/Pulmonary Embolism Present on Admission: No
[2021-03-13] VITALS (14 sets, daily range): BP systolic 97–126; BP diastolic 42–82; PULSE 67–87; RESP 12–18; TEMP 35.9–36.8; O2SAT 95–98
[2021-03-13 06:10] LABS: Hematocrit 44.9 % (41-53); Hemoglobin 14.8 g/dL (13.5-17.5); Mean Corpuscular HGB Conc 33.1 % (30-36); Mean Corpuscular Hemoglobin 31.4 PG (26-34); Mean Corpuscular Volume 94.9 fL (80-100); Platelet Count 208 X10^3/uL (150-400); Red Blood Cell Count 4.73 X10^6/uL (4.5-5.9); Red Cell Distribution Width 14.2 % (11.6-14.8); White Blood Cell Count 4.8 X10^3/uL (4.5-11.0)
[2021-03-13 06:16] LABS: Magnesium 2.3 mg/dL (1.6-2.3)
[2021-03-13 06:17] LABS: BUN Creatinine Ratio 26.4 (6-22); Blood Urea Nitrogen 33 mg/dL (9-20); Calcium 8.6 mg/dL (8.4-10.2); Carbon Dioxide 29 mmol/L (22-32); Chloride 107 mmol/L (98-107); Estimated Glomerular Filt Rate 55.2 mL/min (>60); Glucose 108 mg/dL (80-110); HEMOLYSIS < 15 (0-50); Potassium 3.5 mmol/L (3.4-5.1); Sodium 141 mmol/L (137-145)
[2021-03-13] MEDS: ALBUTEROL 2.5 MG/3 ML NEB (ADULT) INH ×4 (07:30→23:34)
[2021-03-13] MEDS: BUDESONIDE 0.5 MG/2 ML NEB INH ×2 (07:30→20:27)
[2021-03-13] MEDS: ENOXAPARIN 40 MG/0.4 ML SYRINGE SUBCUT (08:02)
[2021-03-13] MEDS: ASPIRIN EC 81 MG TABLET PO (08:03)
[2021-03-13] MEDS: FUROSEMIDE 40 MG/4 ML VIAL IV (08:05)
[2021-03-13] MEDS: METOPROLOL IR 25 MG TABLET 12.5 MG PO ×2 (08:17→20:45)
[2021-03-13] MEDS: SODIUM CHLORIDE 0.9% FLUSH 10 ML IV ×2 (08:17→20:45)
--- NOTE | 2021-03-13 11:01 | PT.IPTN ---
Current Diagnoses Heart failure, unspecified (03/08/21) Physical Therapy Treatment Note M2 PT-IP Current Condition Start: 03/11/21 16:06 Freq: NEEDED Status: Active Protocol: Document 03/11/21 14:20 AB (Rec: 03/11/21 16:21 AB [id number]) Physical Therapy Current Condition Current Condition Evaluation Date 03/11/21 Treatment Diagnosis CHF; difficulty in walking Onset Date 03/08/21 Precautions Other Precautions falls M3 PT-IP Subjective Start: 03/11/21 16:06 Freq: NEEDED Status: Active Protocol: Document 03/13/21 10:48 TIMMY (Rec: 03/13/21 11:01 LJ [id number]) Subjective Physical Therapy Visit Type Type Treatment Note Visit Start Time 10:26 Visit Stop Time 10:47 Total Visit Minutes 21 Number of BUTTON ATTACHING MACHINE OPERATOR Visits 1 Physical Therapy Visit Comments Patient Comments pt is agreeable to do PT M4 PT-IP Mobility and Gait Start: 03/11/21 16:06 Freq: NEEDED Status: Active Protocol: Document 03/13/21 10:48 TIMMY (Rec: 03/13/21 11:01 LJ [id number]) PT-Bed Mobility Assessment Supine to Sit Supine to Sit Standby Assistance PT-Transfer Assessment Sit to and From Stand Sit to and from Stand Standby Assistance,1 Person Assistance,Use of Upper Extremities Equipment Transfer Assistive Device Gait Belt,Front Wheeled Walker Orthotic/Prosthetic Devices or Brace: No Transfers Transfer Destination Chair Transfer Technique amb with fww Transfer Ability Level of Assist Standby Assistance Comments Mobility Comments Pt completed all bed mobility SBA. Ambulated in hallway ~300 ' initially CGA then trialed SBA with which pt did well. Gait pattern wider and no (+) LOB this session. Trialed stairs with step-to pattern and bilateral rails. Pt states he will not need to use stairs in home but only use wide steps getting into the house onto which he can place FWW for assistance. Pt did not experience SOB during ambulation and was able to carry on conversation without pausing to catch breath. Gait Assessment Gait Gait Assistance Required: Standby Assistance,Contact Guard Assist Distance (Feet) 300 Assistive Devices Assistive Device Gait Belt,Front Wheeled Walker Orthotic/Prosthetic Devices or Brace: No Gait Deviations General Gait Pattern Antalgic,Decreased Stride Length,Decreased Feet Clearance,Narrow Based Gait, Step-to Gait Factors Limiting Gait Function Factors Limiting Gait Function Decreased Activity Tolerance, Decreased Strength,Pain,Poor Balance,Poor Safety Awareness Comments Gait Comments Pt with widened MERCEDEZ this session. No crossing over and no need for reminders or cues Stair Climbing Assessment Technique/Endurance Stair Climbing Direction Ascend and Descend Stair Climbing Technique Step to Step Number of Steps Climbed 3 Stair Climbing Set # Repetitions (reps) 2 Comments Stair Climbing Comments Pt using B railings safely with step-to pattern M5 PT-IP Objective Assessments Start: 03/11/21 16:06 Freq: NEEDED Status: Active Protocol: Document 03/11/21 14:20 AB (Rec: 03/11/21 16:21 AB [id number]) Orientation Orientation/Cognition Level of Alertness Alert Orientation Name Language Function Ability No Deficits Noted Safety Awareness Decreased Safety Awareness Gross Range of Motion Lower Extremity ROM Assessment Within Functional Limits Strength Comments Strength Comments RLE: 3+/5 LLE: 4-/5 presents with bilateral LE edema Sensation Assessment Sensation Gross Sensation WNL Muscle Tone Muscle Tone WNL Yes M6 PT-IP Treatment Start: 03/11/21 16:06 Freq: NEEDED Status: Active Protocol: Document 03/13/21 10:48 TIMMY (Rec: 03/13/21 11:01 [id number]) Physical Therapy Treatment Education Education Provided Safety Other Treatments Other Treatment Performed sit<>stand x5 prior to sitting in chair M7 PT-IP Assessment and Plan Start: 03/11/21 16:06 Freq: NEEDED Status: Active Protocol: Document 03/13/21 10:48 TIMMY (Rec: 03/13/21 11:01 [id number]) PT Summary Assessment and Plan Potential Rehabilitation Potential Fair Summary Impairments Pain,ROM,Strength,Balance, Coordination,Sensation,Bed Mobility,Transfers,Gait, Activity Tolerance Progress Towards Goals Progressing Toward Goals,Slow Progress due to Medical Issues Assessment Summary Pt increased gait distance and performance this session. No ROCHA or unsteady gait. Completed stairs safely x2. Will continue to use FWW on his own volition. Goals Bed Mobility Goal Independent Transfer Goal Independent,Front Wheeled Walker Gait Goal Independent,Front Wheel Walker Gait Distance 150 Other Goals improve ambulation without AD 150 ft SBA up/down 8 steps L rail descending SBA Days to Meet Goals 10 Frequency of Treatment Frequency Of Treatment Once a Day Treatment Plan Physical Therapy Treatment Plan Bed Mobility Training,Transfer Training,Gait Training, Therapeutic Exercise,Balance Retraining,Discharge Planning, Neuromuscular Re-ed, Coordination Retraining Other Recommendations and Next Treatment gait training with FWW; stairs Focus Recommendations To Nursing Amount of Assist Needed Standby Assistance Discharge Recommendations PT Discharge Recommendations Home vs SNF Transportation Needs at Discharge Private Vehicle,Wheelchair/ Cabulance
--- NOTE | 2021-03-13 13:07 | P.PN_ITS ---
Subjective Subjective Date Patient Seen: 03/13/21 Time Patient Seen: 08:07 Interval history: Today he says he is feeling well. He has intermittent shortness of breath, mostly when lying flat. Otherwise he is feeling well, no dizziness, no chest pain. He is urinating well. Exam Vital Signs (past 8 hours): - 03/13/21 07:30 03/13/21 08:00 03/13/21 09:00 Temperature 96.7 F L Pulse Rate 83 81 Respiratory Rate 14 12 Blood Pressure 124/73 Pulse Oximetry 97 96 96 03/13/21 11:45 Temperature 97 F L Pulse Rate 77 Respiratory Rate 12 Blood Pressure 97/65 Pulse Oximetry 97 Oxygen Delivery Method Room Air Oxygen Flow Rate 0 Narrative Exam Narrative: Gen: chronically ill appearing, no acute distress HEENT: normocephalic, atraumatic, conjunctiva clear, sclera non-icteric, poor dentition, moist mucous membranes Neck: no JVD, trachea is midline Resp: diminished breath sounds bilateral bases, crackles bilaterally but much improved CV: regular rate and rhythm, no murmur or rubs Abd: soft, non-tender, normal bowel sounds Skin: warm, no rashes, mild venous stasis changes b/l Lower extremities. Toenail's with fungal infection Neuro: Alert and oriented X 3 w/no focal deficits. Speech clear Extremities: moves all extremities, 2+ pitting edema bilaterally. Psyche: normal mood and affect. Objective Labs Result Diagrams: 03/13/21 05:45 03/13/21 05:45 Labs: Laboratory Results - last 24 hr 03/12/21 03/12/21 03/13/21 15:30 15:30 05:45 WBC 4.8 RBC 4.73 Hgb 14.8 Hct 44.9 MCV 94.9 MCH 31.4 MCHC 33.1 RDW 14.2 Plt Count 208 Sodium 143 Potassium 3.4 Chloride 104 Carbon Dioxide 32 BUN 39 H Creatinine 1.44 H Estimated GFR 46.9 L BUN/Creatinine Ratio 27.1 H Glucose 121 H Calcium 8.6 Phosphorus 4.3 H Magnesium 2.2 03/13/21 03/13/21 05:45 05:45 WBC RBC Hgb Hct MCV MCH MCHC RDW Plt Count Sodium 141 Potassium 3.5 Chloride 107 Carbon Dioxide 29 BUN 33 H Creatinine 1.25 Estimated GFR 55.2 L BUN/Creatinine Ratio 26.4 H Glucose 108 Calcium 8.6 Phosphorus Magnesium 2.3 PFSH Surgical History No history of previous surgery Family History (Updated 03/09/21 @ 03:35 by CARMINA Araujo) Mother Uterine cancer Father Lung cancer Social History household members: significant other Smoking Status: Never smoker alcohol intake: current Assessment & Plan Assessment & Plan narrative: 85M with PMH presumed asthma according to prior documentation who was admitted with shortness of breath and presumed heart failure. Echo shows mixed systolic and diastolic function with a severely reduced EF at 10-15% 1. 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 -patient started on metoprolol succinate 12.5 mg b.i.d. and losartan 25 mg daily. Likely will need to start aldactone depending on symptoms once more euvolemic. -held losartan on 03/11 given MAURICE -previous provider discussed with Cardiology, Dr. Peraza, who recommended stress testing as inpatient once euvolemic, plan for 03/13 -risk stratification: Patient is not diabetic, lipid panel shows TC 122, LDL 71, HDL 42. TG 45. TSH 1.34 -Continue diuresis with 40 mg IV BID as able. On fluid restriction which will likely help as he has been drinking quite a bit of fluid, he is around net neutral intake and output. Depending on output today, may need increase in furosemide tomorrow. -continue telemetery, no events thus far. -overall cumulative net negative -8.5L this hospital stay 2. Reactive airway disease, chronic -patient is currently oxygenating well, no wheezing. -replace home fluticasone salmeterol with pulmicort and albuterol. 3. Bilateral pleural effusions, acute, present on admission. - likely secondary to heart failure and volume overload. No respiratory distress currently. Consider thoracentesis if no improvement in symptoms with adequate diuresis. - significant improve in pleural effusions with diuresis 4. Elevated troponin, acute present on admission - peaked at 0.055. Likely in setting of decompensated heart failure. No EKG changes consistent with acute ischemia and patient denied chest pain. 5. MAURICE - etiology unclear - possibly from diuresis, BUN also rising as well as creatinine - on admission creatinine 1.2, increased to 1.46, but improved to 1.25 on 03/13 - BUN increased from 21->33 - recheck lytes in daily 6. 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 R kidney stone - not currently obstructing, 9mm in size - monitor symptoms closely - R kidney has mild hydronephrosis, has distended bladder on CT, but bladder scan shows ~300cc,s traight cath was easy to perform, no evidence of urethral obstruction and had only 200cc on straight cath 8. R inguinal hernia - patient asymptomatic - will need surgery follow up as outpatient VTE prophylaxis: Enoxaparin 40 mg subQ daily Dispo: Patient is admitted under inpatient status. Likely discharge home after diuresis and will likely require stress testing prior to discharge as recommended above by cardiology. Code Status: Full Code as discussed with patient, surrogate is Anna, his housemate Quality VTE Deep Vein Thrombosis/Pulmonary Embolism Present on Admission: No
--- NOTE | 2021-03-13 15:57 | PC.NURSE ---
Addendum entered by Patrizia Jain R.N. 03/13/21 22:06: Pt independent in room, Denies discomfort. HL intact/patent Tele shows ST per ICU staff. Call light w/in reach, pt calls appropriately for needs. Continue w/plan of care. Original Note: Pt sitting in chair once returned from test Lungs clear w/fine crackles @ bases SpO2 98% RA Denies any discomfort at this time. Tele in place, NSR/BBB per ICU staff. Call light w/in reach. pt calls appropriately for needs.
--- NOTE | 2021-03-13 16:44 | CM.DPC ---
DCP Continued: STEM PROCESSING MACHINE OPERATOR Met with patient who is alert and oriented. He reported his partner Anna will be his primary support system in ensuring he will be able to attend future medical appointments. Patient reported Anna canceled his appointment with Dr. De Jesus for tomorrow. Encouraged patient to reschedule appointment. Patient is reporting he is currently benefiting from physical therapy here at the [facility] but, patient is not homebound and will not qualify for Home Health Services. Patient reported he is not interested in additional resources at this time. PLAN: Anticipate home when medically stable. LESVIA Alejandro MSW Student
[2021-03-13 17:43] LABS: BUN Creatinine Ratio 24.6 (6-22); Blood Urea Nitrogen 30 mg/dL (9-20); Calcium 8.8 mg/dL (8.4-10.2); Carbon Dioxide 32 mmol/L (22-32); Chloride 102 mmol/L (98-107); Estimated Glomerular Filt Rate 56.7 mL/min (>60); Glucose 102 mg/dL (80-110); HEMOLYSIS < 15 (0-50); Potassium 3.4 mmol/L (3.4-5.1); Sodium 139 mmol/L (137-145)
[2021-03-14] VITALS (19 sets, daily range): BP systolic 87–127; BP diastolic 39–80; PULSE 45–100; RESP 14–20; TEMP 36.2–36.6; O2SAT 94–99
[2021-03-14 05:48] LABS: BUN Creatinine Ratio 29.6 (6-22); Blood Urea Nitrogen 34 mg/dL (9-20); Calcium 8.6 mg/dL (8.4-10.2); Carbon Dioxide 28 mmol/L (22-32); Chloride 106 mmol/L (98-107); Estimated Glomerular Filt Rate > 60.0 mL/min (>60); Glucose 106 mg/dL (80-110); HEMOLYSIS < 15 (0-50); Magnesium 2.3 mg/dL (1.6-2.3); Potassium 3.7 mmol/L (3.4-5.1); Sodium 139 mmol/L (137-145)
[2021-03-14] MEDS: ALBUTEROL 2.5 MG/3 ML NEB (ADULT) INH ×5 (07:44→22:07)
[2021-03-14] MEDS: BUDESONIDE 0.5 MG/2 ML NEB INH ×2 (07:44→17:43)
[2021-03-14] MEDS: ENOXAPARIN 40 MG/0.4 ML SYRINGE SUBCUT (09:19)
[2021-03-14] MEDS: ASPIRIN EC 81 MG TABLET PO (09:19)
[2021-03-14] MEDS: SODIUM CHLORIDE 0.9% 250 ML IV ×2 (09:23→11:43)
[2021-03-14] MEDS: SODIUM CHLORIDE 0.9% FLUSH 10 ML IV ×2 (09:26→20:49)
--- NOTE | 2021-03-14 10:24 | PC.NURSE ---
Patient stated he was feeling dizzy and light headed so BP was taken at 0800 and was 87/44. Dr. Jones was notified and came to the bedside to assess the patient. Verbal orders to hold AM Lasix and Lopressor were given and 250mL NS at 250 mL/hr was ordered. Patients BP was rechecked and improved to 122/62 at 1005.
--- NOTE | 2021-03-14 11:15 | PT-IP ANOTE ---
Discussed pt with RN who reports runs of v tach and PVC's this AM. Stat EKG ordered. Hold therapy at this time.
--- NOTE | 2021-03-14 11:16 | PC.NURSE ---
Patient is still complaining of feeling Woozy and lightheaded, patient VS 124/68 after 250ml bolus of normal saline. Dr. Jones notified and ordered potassium 40 MEQ verbal order, orthostatic vital signs, and a STAT EKG. During orthostatic vital signs patient was still complaining of lightheadedness and dizziness. Vital signs 104/40 lying P 86, 115/44 sitting P86 and 97/[address] Jones notified of findings.
[2021-03-14] MEDS: POTASSIUM CHLORIDE 20 MEQ TAB 40 MEQ PO (11:42)
--- NOTE | 2021-03-14 12:42 | PT-IP ANOTE ---
checked with pt's nurse and pt continues to be on hold for PT. nurse stated that pt continues to be hypotensive and is tachycardic and is not appropriate for PT today. talked to pt to inform regarding on hold for PT today and understood. will f/u tomorrow.
--- NOTE | 2021-03-14 17:21 | CM.DPC ---
DCP Continued: ALLEY TENDER and ALLEY TENDER student met with patient?s significant other today as patient was out of room completing a stress test. Anna expressed concerns that Mr. Nowak might be depressed she is noticing signs he has not been keeping up on his hygiene and drinks about 8oz of wine a night. Later after stress test ALLEY TENDER Student met with patient. He reported feeling a little more dizzy than usual but, feels comfortable getting around. Explored alcohol use, depression and general sense of well-being in the home environment. Patient said he is happy at home with his animals and Anna, ?we take care of them together.? Patient stated. He expressed he is managing ADL?s, which is different from the documented difficulties from the initial intake assessment and what Anna is expressing. Patient does not feel his drinking one glass of wine a night is a problem. He denies any signs and symptoms of withdrawals from alcohol, ?I can do without it.? Patient stated. Discussed D/C options for patient home vs SNF he reported he would agree to going to a SNF if needed for rehabilitation purposes. Further input from therapy could be helpful in making a determination on D/C plans. Physical therapy was held x2 this date due to being hypotensive and tachycardic. PLAN: Pending additional input from therapies to make D/C determination between home vs SNF. CM Team to continue to follow closely. LESVIA Alejandro, ALLEY TENDER Student
--- NOTE | 2021-03-14 17:34 | PC.NURSE ---
Addendum entered by Patrizia Jain R.N. 03/14/21 22:08: Condition remains essentially unchanged. Tele w/ SR/ST/BBB per ICU staff. Denies discomfort. Call light w/in reach, independent in room. 'Continue w/plan of care. Original Note: Pt sitting in chair, Denies discomfort at this time. Lungs course throughout tracy SpO2 94-96% HL MABEL intact. Call light w/in reach. Pt independent in room
--- NOTE | 2021-03-14 17:53 | DI.NM.S_ITS ---
DATE OF SERVICE: PROCEDURE: Pharmacological perfusion study. DATE OF STUDY: March 13, 2021 INDICATIONS: CHF with profound left ventricular dysfunction. RADIOPHARMACEUTICAL: 24.0 millicurie technetium-99m Myoview IV was injected at stress and 25.7 millicurie technetium-99m Myoview IV was injected at rest. CARDIAC STRESS: The patient underwent IV Lexiscan perfusion study under the supervision of an attending staff using standard intravenous Lexiscan protocol. The patient experienced dyspnea during Lexiscan infusion. Baseline rhythm was sinus with left anterior fascicular block with some nonspecific ST/T changes. The patient also has frequent PVCs, including bigeminy. During stress the patient continued to have PVCs, as well as three beat run of nonsustained ventricular tachycardia. No sustained ventricular tachycardia. No obvious new ischemic changes. RAW DATA: There is increased subdiaphragmatic activity. GATED STUDY: LV ejection fraction during rest and stress about 19 percent. Severely dilated left ventricle with LV end-diastolic volume 326 mL. Seizure global hypokinesis. Lung/heart ratio 0.45, which is at upper limit of normal. TID ratio 1.09, which is within normal limits. MYOCARDIAL PERFUSION SCAN: There were no prone images. Stress supine and resting supine images were compared to each other. The resting supine images revealed large size, severely decreased perfusion of inferior wall, inferior apex, basal inferior septum. Stress supine images revealed large size, severely decreased perfusion of inferior wall, inferior apex, as well as the entire inferolateral wall and some basal inferior septum. There was in addition to inferior wall, inferior lateral and inferior apical defect. There is a moderately decreased perfusion of mid to distal anterior wall extending into the anterior apex and distal anteroseptum as well. CONCLUSION: This is an abnormal myocardial perfusion study consistent with significant reversible ischemia of mid to distal anterior wall, anteroapex as well as mid to distal inferolateral wall along with large size infarction of inferior wall, inferior apex and basal inferolateral wall. 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 Significantly dilated left ventricle with left ventricular ejection fraction 19 percent. Discussed the finding with our [place] hospitalist. Will recommend transfer to [facility] for left heart catheterization. Omi Nowak - JUAN/alethea/collin doc#: [id number]/job#: [id number] dd: 03/14/2021 16:56:00 dt: 03/14/2021 17:36:00 DICTATING MD/COPIES TO: Dahiana Peraza MD COPIES MNE: FIORDALIZA;
--- NOTE | 2021-03-14 18:15 | PM.DS.1 ---
History of Present Illness History of Present Illness Chief complaint: SOB Narrative: H and P per Karen Dominguez: Omi Nowak is a 89-year-old male with the only diagnosis of having asthma presented to the emergency department with severe shortness of breath. States he has been unable to walk for much more than 100 ft and that this is been going on for 2 weeks. He also endorses feeling lightheaded when he gets up. He denies fevers sweats or chills, he coughs to release moisture from his lungs but does not have chronic cough, he states that he has poor hygiene in his mouth and he is worried about if his poor oral dentition might be contributing to problems in his heart, he denies any chest pain, palpitations, or pain with breathing, he denies any nausea vomiting, dysuria, weakness but does endorse fatigue, he denies any diarrhea or constipation. Chest x-ray in ordered in the ED indicated bilateral pleural effusions and CT of the chest indicated ?Large bilateral pleural effusions with adjacent atelectasis and pulmonary edema. Recommend clinical and laboratory correlation to exclude underlying infection.Patient is afebrile, blood pressure 121/61, heart rate 92, respiratory rate of 18, oxygen saturation 97% on room air, he weighs 79.3 kg with a BMI of 26. WBC is unremarkable, he is mildly hyponatremic with a sodium of 134, BUN is 21, creatinine 1.20, GFR is glucose was 128, he is not diabetic with a hemoglobin A1c of 5.5, AST 62, ALT 64, CK-MB is 7.94, CK-MB relative index 6.2, troponin was initially 0.049, then increased to 0.050, and is now 0.055, his NT proBNP is almost 12,000, COVID-19 PCR is negative. Discharge Providers Provider Date of admission: 03/08/21 22:07 Discharge Date: 03/14/21 Consults: 03/08/21 17:04 Consult to GUARD IMMIGRATION - Automotive Sales Professional Stat Comment: 03/11/21 11:15 Consult to Physical Therapy Evaluate & Treat Comment: Physician Instructions: Evaluate and Treat Discharge provider: Devonte Jones MD Summary Hospital Course Discharge Diagnosis: 1. Acute systolic congestive heart failure, newly diagnosed EF 10-15%, ischemic cardiomyopathy, also noted stage 2 diastolic dysfunction 2. Acute kidney injury 3. 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 Chronic hydronephrosis on left, significant, with mild hydronephrosis on right 5. R kidney stone 9mm, nonobstructing 6. R inguinal hernia 7. Poor foot care 8. Chronic reactive airway disease per patient Hospital Course: Mr. Nowak initially came in with significant volume overload. He has little knowledge medical care prior to this admission. He was found to have significant respiratory distress from pleural effusions. He was started on diuresis. He diuresed well with BID dosing of IV lasix at 40mg. On day of discharge he was net negative -8.9L fluid balance. His weight was 70.5kg from admission at 79.4kg. Once he diuresed he went for nuclear stress test which showed reversible ischemia of mid to distal anterior wall, with mid to distal interolateral wall along with infarction of inferior wall. This was consistent with multivessel CAD. He was recommended for transfer for left heart catheterization. Of note he was on metoprolol 12.5 BID, he initially was on losartan; however this was stopped in setting of MAURICE and low blood pressures and had not been restarted on day of discharge. His MAURICE was noted in the setting of diuresis which peaked at a creatinine of 1.44 but improved on discharge to 1.15, baseline creatinine is unknown. On day of discharge he did develop symptomatic hypotension with blood pressure briefly in the 80s, and did need 500cc bolus, which improved blood pressure to the 120s. He was still volume overloaded on discharge. Additionally, he was incidentally noted on initial imaging in ER to have abnormal left kidney with cystic appearance. 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 He also had mild right hydronephrosis. His creatinine remained normal at discharge. He did have straight cath done which was easy to perform indicating no urethral stricture, and he did not have any urinary retention. CT did not reveal any masses, but did show nonobstructing kidney stones, 9mm in right kidney. These findings were discussed with urology who recommended outpatient close urologic follow up to consider cystoscopy and urogram to evaluate for possible masses and for also renal function. In addition he will need close follow up due to the kidney stone in his right kidney that would be at risk of obstructing his presumed single functioning kidney. He was also incidentally noted to have a large right inguinal hernia that was asymptomatic and should have surgical outpatient follow up. He also has poor care of his toes, and would likely benefit from outpatient podiatry. Code status: Full Exam Vital Signs (past 8 hours): - 03/14/21 11:00 03/14/21 11:11 03/14/21 11:22 Temperature Pulse Rate 69 Pulse Rate [Orthostatic Lying] 86 Pulse Rate [Orthostatic Sitting] 86 Pulse Rate [Orthostatic Standing] 88 Respiratory Rate 16 Blood Pressure Blood Pressure [Orthostatic Lying] 104/40 L Blood Pressure [Orthostatic Sitting] 115/44 L Blood Pressure [Orthostatic Standing] 97/48 L Pulse Oximetry 99 97 03/14/21 11:45 03/14/21 12:00 03/14/21 15:38 Temperature 97.2 F L 97.5 F L Pulse Rate 92 H 94 H 78 Pulse Rate [Orthostatic Lying] Pulse Rate [Orthostatic Sitting] Pulse Rate [Orthostatic Standing] Respiratory Rate 18 16 16 Blood Pressure 108/60 126/80 Blood Pressure [Orthostatic Lying] Blood Pressure [Orthostatic Sitting] Blood Pressure [Orthostatic Standing] Pulse Oximetry 96 99 97 03/14/21 15:49 03/14/21 16:00 03/14/21 17:44 Temperature 97.8 F Pulse Rate 45 L 90 Pulse Rate [Orthostatic Lying] Pulse Rate [Orthostatic Sitting] Pulse Rate [Orthostatic Standing] Respiratory Rate 18 16 Blood Pressure 110/39 L Blood Pressure [Orthostatic Lying] Blood Pressure [Orthostatic Sitting] Blood Pressure [Orthostatic Standing] Pulse Oximetry 96 94 98 Oxygen Delivery Method Room Air Oxygen Flow Rate 0 Narrative Exam Narrative: Gen: chronically ill appearing, no acute distress HEENT: normocephalic, atraumatic, conjunctiva clear, sclera non-icteric, poor dentition, moist mucous membranes Neck: no JVD, trachea is midline Resp: diminished breath sounds bilateral bases, crackles bilaterally but much improved CV: regular rate and rhythm, no murmur or rubs Abd: soft, non-tender, normal bowel sounds Skin: warm, no rashes, mild venous stasis changes b/l Lower extremities. Toenail's with fungal infection Neuro: Alert and oriented X 3 w/no focal deficits. Speech clear Extremities: moves all extremities, 2+ pitting edema bilaterally. Psyche: normal mood and affect. Objective Labs Result Diagrams: 03/13/21 05:45 03/14/21 05:15 Labs: Laboratory Results - last 24 hr 03/14/21 03/14/21 05:15 05:15 Sodium 139 Potassium 3.7 Chloride 106 Carbon Dioxide 28 BUN 34 H Creatinine 1.15 Estimated GFR > 60.0 BUN/Creatinine Ratio 29.6 H Glucose 106 Calcium 8.6 Magnesium 2.3 PFSH Surgical History No history of previous surgery Family History (Updated 03/09/21 @ 03:35 by CARMINA Araujo) Mother Uterine cancer Father Lung cancer Social History household members: significant other Smoking Status: Never smoker alcohol intake: current Discharge Plan Discharge Plan Disposition: Xfer [facility] Hospital Visit Report/Discharge Packet Instructions: DI for Heart Failure, Low-Sodium Diet, How to [place] With Heart Failure Quality VTE Deep Vein Thrombosis/Pulmonary Embolism Present on Admission: No
--- NOTE | 2021-03-14 23:56 | PC.NURSE ---
Report given to Hannah GALINDO. [facility], waiting for transport team to arrive. Patient denies any chest pain when assessed at 2345 & no C/O dyspnea & no SOB noted.
[2021-03-15] VITALS: O2SAT 98
[2021-03-15 00:05] VITALS: BP 115/58; PULSE 75; RESP 18; TEMP 36.7; O2SAT 98
--- NOTE | 2021-03-15 00:29 | PC.NURSE ---
Transport team here & patient leaving now to [facility].
--- NOTE | 2021-03-15 07:54 | CM.DPNOTE ---
Per MD, pt was a hospital transfer in the middle of the night to [facility] for higher level of medical care. LESVIA Su
== END 2021-03-15 00:30 | disposition short-term general hospital (02) | DRG 292 ==
LOC: ED 19:26 → AC 22:08
PROVIDERS: Internal Medicine; Admitting Provider Nurse Practitioner Family; Emergency Provider Emergency Medicine; Referring Provider Emergency Medicine; Visit Provider Nurse Practitioner Family
DX: I50.41 Acute combined systolic (congestive) and diastolic (congestive) heart failure (principal); I24.8 Other forms of acute ischemic heart disease; N17.9 Acute kidney failure, unspecified; N13.30 Unspecified hydronephrosis; J45.909 Unspecified asthma, uncomplicated; N28.1 Cyst of kidney, acquired; I25.5 Ischemic cardiomyopathy; Z20.822 Contact with and (suspected) exposure to COVID-19
CPT/HCPCS: 36415; 71046; 71275; 74176; 76770; 78452; 80048; 80053; 80061; 80076; 82550; 82553; 83036; 83605; 83735; 83880; 84100; 84443; 84484; 85025; 85027; 87040; 87635; 93005; 93010; 93017; 93306; 94150; 94640; 94760; 94762; 96365; 96366; 96367; 96375; 97116; 97161; 99285; C9803; A9502; J0696; J1650; J1940; J2785; J2930; J7613; Q9967

== ENCOUNTER → 2021-04-10 11:46 | Outpatient (CLI) | payer MEDICARE, SELFPAY ==
[2021-03-08 22:44] VITALS: BMI 25.8
[2021-04-10 12:56] LABS: Add Manual Diff / Slide Review NO; Basophils Absolute Auto 0 /uL (0-100); Basophils Percent Auto 0.8 % (0-2); Eosinophils Absolute Auto 200 /uL (0-450); Eosinophils Percent Auto 3.6 % (2-4); Hematocrit 41.5 % (41-53); Hemoglobin 13.9 g/dL (13.5-17.5); Lymphocytes Absolute Auto 700 /uL (1100-4500); Lymphocytes Percent Auto 13.4 % (25-40); Mean Corpuscular HGB Conc 33.5 % (30-36); Mean Corpuscular Hemoglobin 31.6 PG (26-34); Mean Corpuscular Volume 94.4 fL (80-100); Monocytes Absolute Auto 400 /uL (0-900); Monocytes Percent Auto 8.4 % (3-14); Neutrophils Absolute Auto 3800 /uL (1500-7000); Neutrophils Percent Auto 73.8 % (50-75); Platelet Count 188 X10^3/uL (150-400); Red Cell Distribution Width 14.6 % (11.6-14.8); White Blood Cell Count 5.2 X10^3/uL (4.5-11.0)
[2021-04-10 13:04] LABS: BUN Creatinine Ratio 20.7 (6-22); Blood Urea Nitrogen 24 mg/dL (9-20); Calcium 9.1 mg/dL (8.4-10.2); Carbon Dioxide 23 mmol/L (22-32); Chloride 104 mmol/L (98-107); Estimated Glomerular Filt Rate > 60.0 mL/min (>60); Glucose 102 mg/dL (80-110); HEMOLYSIS < 15 (0-50); Potassium 4.3 mmol/L (3.4-5.1); Sodium 135 mmol/L (137-145)
== END ==
PROVIDERS: Referring Provider Nurse Practitioner; Visit Provider Nurse Practitioner
DX: I25.5 Ischemic cardiomyopathy (principal)
CPT/HCPCS: 36415; 80048; 85025

== ENCOUNTER → 2021-07-17 13:34 | Outpatient (CLI) | payer MEDICARE, SELFPAY ==
[2021-03-08 22:44] VITALS: BMI 25.8
--- OUTSIDE RECORDS SUMMARY | 2021-06-14 08:16 | XMS_ITS | Referral Summary ---
:1935 Author Organization [facility] Address [address] [place] [address] Care Team Providers Name Role Phone French Primary Care Provider Reason for Referral Rehabilitation - Outpatient (Routine) - Authorized Specialty Diagnoses / Procedures Referred By Contact Refer red To Contact Diagnoses ASHD (arteriosclerotic heart disease) Cardiomyopathy, ischemic Marc Russo, [address] [place] [address] [place], [place] [address] Referral ID Status Reason Start Date Expiration Date Visits V isits Requested Authorized [id number] Authorized 04/06/2021 04/01/2022 1 1 Reason for Visit Reason Comments Follow-up Encounter Details Date Type Department Care Team Description 04/06/2021 Office Visit [facility] Marc Russo ASHD (art eriosclerotic heart disease) (Primary Dx); Clinics Cardiology [facility] Cardiomyopathy, ischemic; [address], [address] [place] [id number] Allergies No known active allergiesdocumented as of this encounter (statuses as of 06/13/2021) Medications Medication Sig Dispensed Refills Start End Date Status Date albuterol HFA Inhale 2 puffs 0 A ctive (ProAir) 90 every 6 (six) mcg/actuation hours as needed inhaler for wheezing CHOLECALCIFEROL, Take 1 tablet 0 Active VITAMIN D3, ORAL by mouth daily ascorbic acid, Take 500 mg by 0 Active vitamin C, (VITAMIN mouth every C) 500 mg tablet morning latanoprost Administer 1 0 Activ e (XALATAN) 0.005 % drop into ophthalmic solution affected eye(s) daily montelukast Take 10 mg by 0 Acti ve (SINGULAIR) 10 mg mouth daily tablet nitroglycerin Place 0.4 mg 0 Act teri (NITROSTAT) 0.4 mg under the 1 SL tablet tongue every 5 minutes as needed torsemide (DEMADEX) Take 10 mg by 0 Active 10 mg tablet mouth 1 acetaminophen Take 325-650 mg 0 04/22/20 (TYLENOL) 325 mg by mouth every 1 21 tablet 30 minutes as needed aspirin 81 mg Take 81 mg by 0 04/22/20 Ex pired chewable tablet mouth daily 1 21 atorvastatin Take 80 mg by 0 04/22/20 Exp ired (LIPITOR) 80 mg mouth daily 1 21 tablet clopidogreL Take 75 mg by 0 04/22/20 Expi red (PLAVIX) 75 mg mouth daily 1 21 tablet lisinopriL Take 2.5 mg by 0 04/06/20 Disc ontinued (PRINIVIL) 2.5 mg mouth daily 1 21 (Reorder) tablet metoprolol Take 25 mg by 0 04/22/20 Expir ed succinate XL mouth 2 times 1 21 (TOPROL-XL) 25 mg daily 24 hr tablet spironolactone Take 12.5 mg by 0 04/22/20 (ALDACTONE) 25 mg mouth daily 1 21 tablet lisinopriL Take 2 tablets 60 tablet 0 05/06/20 Expi red (PRINIVIL) 2.5 mg (5 mg total) by 1 21 tablet mouth daily documented as of this encounter (statuses as of 06/13/2021) Active Problems No known active problemsdocumented as of this encounter (statuses as of 06/13/2021) Immunizations Name Administration Dates Next Due documented as of this encounter Social History Tobacco Use Types Packs/Day Years Used Date Never Smoker Smokeless Tobacco: Never Used Sex Assigned at Date Recorded Not on file Job Start Date Occupation Industry Not on file Not on file Not on file COVID-19 Exposure Response Date Recorded In the last month, have you been in contact with No / Unsure 03/15/2021 1:27 AM PDT someone who was confirmed or suspected to have Coronavirus / COVID-19? documented as of this encounter Last Filed Vital Signs Vital Sign Reading Time Taken Comments Blood Pressure 98/56 04/06/2021 2:40 PM PDT Pulse 63 04/06/2021 2:40 PM PDT Temperature - - Respiratory Rate - - Oxygen Saturation - - Inhaled Oxygen Concentration - - Weight 68.8 kg (151 lb 9.6 oz) 04/06/2021 2:40 PM PDT Height 175.3 cm (5' 9.02) 04/06/2021 2:40 PM PDT Body Mass Index 22.38 04/06/2021 2:40 PM PDT documented in this encounter Progress Notes CARMINA Mccarty - 04/06/2021 2:30 PM PDT Increase lisinopril to 5 mg (2 tablets) daily Monitor your blood pressure, pulse and weight every day Get labs drawn in 5 days Follow in [address] Falk eCARMINA Smith - 04/06/2021 2:30 PM PDT Subjective Patient ID: Omi Nowak is a 85 y.o. male that had concerns including Follow-up. HPI: Omi is an 85-year-old man who presented to [facility] emergency department on 03/08/2021 complaining of increasing shortness of breath worsening over the past several weeks. He reported lightheadedness but no syncope. He did note swelling in the upper and lower extremities as well as skin dis coloration of his fingers and toes slowly worsening over time. Initial troponin was positive. Chestx-ray showed moderate bilateral pneumonia. Echocardiogram showed severely reduced left ventricular systolic function with an ejection fraction of 10-15%. As well as stage II diastolic dysfunction. He was started on metoprolol and losartan which was subsequently held due to MAURICE. He was diuresed with IV furosemide. Telemetry did not show any events. Pleural effusions were thought secondary to heart failure and volume overload with significant improvement after diuresis. Elevated troponin peakedat 0.55 without ECG changes and without chest pain. Admission creatinine was 1.2 which peaked at 1.46 and improved to 1.25 at the time of transfer to [facility] after finding of significantly abnormal myocardial perfusion study suggesting multivessel coronary artery disease. She was transferred for possible heart cath. Dr. Jeanne Falk provided cardiology consultation on 03/15/2021. Patient reported weight loss toher however he could not quantify this. ECG showed sinus rhythm 65 bpm with left axis deviation, Q waves in 1 leads II, III and aVF consistent with infarct and PDA distribution. There was poor R wave progression in the precordial leads possibly due to prior anterior infarct. Telemetry monitoring showed short runs of nonsustained ventricular tachycardia. Patient was taken to the cardiac catheterization lab which unfortunately showed severe CAD with 70% mLAD, 99% heavily calcified oLCx, 90% short tubular mRCA. The case was discussed with Dr. Kendall Mcgee who discussed with the patient the calci fic nature of his coronary artery disease and risks especially including perforation and retrograde dissection into the left main. Patient decided to consider trial of medical therapy and trial of right coronary intervention with evaluation of mid LAD lesion and stenting if needed. He was ultimately transferred to [facility] for complex PCI. It should be noted that patient had cyanotic fingers and toes with bilateral upper and lower extremity arterial ultrasounds without evidence ofarterial insufficiency. At [facility], he underwent successful PCI and was started on GDMT for HFrEF includinglisinopril, spironolactone and metoprolol succinate. He was discharged on dual antiplatelet therapywith ticagrelor 90 mg twice daily and aspirin 81 mg daily. He was started on atorvastatin daily with a goal LDL of less than 70. With regard to diuresis, patient was given atorvastatin 10 mg for a great gain of greater than 3 pounds in 1 day or 5 pounds in 1 week. Patient comes to clinic today for follow-up. He denies any recurrence of chest pain, shortness of breath, dizziness or lightheadedness. He is able to lie flat. He is tolerating medications well saveDAPT. He reports easy bruising. He is establishing care with a new PCP, Dr. Storm French on 04/10/2021 but has not yet been seen. He is interested in cardiac rehab. 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 He enjoys 1 glass of winedaily. He has never smoked. History reviewed. No pertinent past medical history. [...] Sig acetaminophen (TYLENOL) 325 mg tablet Take 325-650 mg by mouth every 30 minutes as needed albuterol HFA (ProAir) 90 mcg/actuation inhaler Inhale 2 puffs every 6 (six) hours as needed for wheezing ascorbic acid, vitamin C, (VITAMIN C) 500 mg tablet Take 500 mg by mouth every morning aspirin 81 mg chewable tablet Take 81 mg by mouth daily atorvastatin (LIPITOR) 80 mg tablet Take 80 mg by mouth daily CHOLECALCIFEROL, VITAMIN D3, ORAL Take 1 tablet by mouth daily clopidogreL (PLAVIX) 75 mg tablet Take 75 mg by mouth daily latanoprost (XALATAN) 0.005 % ophthalmic solution Administer [...] needed spironolactone (ALDACTONE) 25 mg tablet Take 12.5 mg by mouth daily torsemide (DEMADEX) 10 mg tablet Take 10 mg by mouth Review of Systems Constitutional: Negative for fatigue and unexpected weight change. Respiratory: Positive for shortness of breath. Negative for chest tightness. Cardiovascular: Negative for chest pain, palpitations and leg swelling. Endocrine: Negative for polydipsia. Genitourinary: Negative for hematuria. Skin: Negative for rash. Neurological: Negative for dizziness, weakness and light-headedness. Hematological: Does not bruise/bleed easily. Psychiatric/Behavioral: The patient is not nervous/anxious. All other systems reviewed and are negative. STUDIES: CT angio chest PE protocol 03/08/2021 No evidence of pulmonary embolism. No aortic dissection identified. 2 view chest x-ray 03/08/2021 Moderate bilateral pneumonia with small parapneumonic effusions bilaterally Transthoracic echocardiogram 03/09/2021 Moderately dilated left ventricle with severe global hypokinesis. Ejection fraction 10-15%. Stage II diastolic dysfunction Mild left atrial enlargement Mildly dilated RV with mildly reduced right ventricular function Normal mitral valve leaflets Mild mitral annular calcification with moderate associated eccentric posterior laterally directed mitral regurgitation No obvious leaflet tethering or prolapse Aortic sclerosis without stenosis Moderate central tricuspid regurgitation with estimated pulmonary artery systolic pressure of 55 mmHg assuming a right atrial pressure 15 mmHg Moderate left pleural effusion Patient was in normal sinus rhythm Myocardial perfusion scan 03/13/2021 Abnormal myocardial perfusion study consistent with significant reversible ischemia of mid to distalanterior wall, anterior apex as well as mid to distal inferior lateral wall with a large size infarction of inferior wall, inferior apex and basal inferolateral wall. Likely multivessel coronary artery disease. Significantly dilated left ventricle with LVEF 19%. Heart cath 03/15/21 Findings 1) Coronary angiography: right dominance A. Left main: Large vessel which gives rise to LAD and circumflex. Excellent blowback and no dampening on engagement. B. Left Anterior Descending (LAD) Artery: Normal medium vessel which gives rise to a large first diagonal branch and a large second diagonal branch. This vessel is heavily calcified. There is a 70% mid LAD lesion at a residential point between the first and the second diagonal vessel. C. Left Circumflex (LCx): Medium caliber nondominant vessel which demonstrates heavily calcified 99% ostial stenosis. This vessel gives rise to a small obtuse marginal branch 1, small OM 2, medium OM 3 and small OM 4. D. Right Coronary Artery: Right coronary artery is a dominant vessel. It gives rise to PDA and PL branch. There is a 90% short tubular mid RCA lesion 2) Left Heart catheterization Aortic pressure 3) Right heart cath: RA Mean Pressure 10 mm Hg mmHg RV Pressure 60/10 mmHg EDP is 12 mm Hg PA Pressure 60/25 mmHg PCWP 30 mmHg Pablo Cardiac Output 4.7 L/min Thermo-dilution Cardiac Output 3.7 L/min Complications There were no periprocedural complications identified ?? Summary: Severe CAD with 70% mLAD, 99% heavily calcified oLCX, 90% short tubular mRCA ?? Recommendations: High risk PCI Not a good candidate given severe cardiomyopathy with EF 10 to 15%, advanced age and cachexia. Objective BP 98/56 (BP Location: Left arm, Patient Position: Sitting) Pulse 63 Ht 1.753 m Wt 68.8 kg BMI 22.38 kg/m?? Physical Exam: General Appearance: Well-nourished, pleasant, cooperative, no apparent distress HEET: Normocephalic atraumatic, EOMI Neck: No obvious mass, supple Respiratory: Decreased but clear Cardiovascular: RRR, normal S1 and normal S2, no murmurs/rubs/gallops, Pulses: Carotid and radial pulses 2+ bilaterally without bruit, dorsalis pedis and anterior tibial pulses 2+ bilaterally Abdomen: Cachectic, soft, nondistended, nontender, no heptosplenomegally, no hepatojugular reflux, normal bowel sounds without bruits Extremities: Thick, whitish fingernails, 1+ bilateral lower extremity edema Neuro: Alert, no facial droop, tongue midline, no gross motor deficits Psych: Appropriate affect, normal mentation and memory Skin: Warm and dry, no rashes on face, neck, and lower extremities ECG today shows Sinus Rhythm 63 bpm, RBBB, ischemic changes in the lateral and inferior leads, PVC, QTC 443 ms Assessment/Plan Diagnoses and all orders for this visit: ASHD (arteriosclerotic heart disease) - ECG 12 Lead (Clinic - Same Day) - XTRNL Referral to Cardiac Rehabilitation Cardiomyopathy, ischemic - XTRNL Referral to Cardiac Rehabilitation - Basic metabolic panel; Future - CBC w/ diff Lab Collect; Future RBBB Other orders - lisinopriL (PRINIVIL) 2.5 mg tablet; Take 2 tablets (5 mg total) by mouth daily Assessment/Plan Comments: Omi is a pleasant and motivated 85-year-old man who comes to clinic today for follow-up after complex PCI at [facility]. He initially presented to [facility] complaining of 1 to 2 months of progressive shortness of breath. Transthoracic echocardiogram showed severely reduced LVEF and myocardial perfusion imaging was significantly abnormal suggesting multivessel coronary artery disease. Patient was transferred to [facility] where the decision was made ultimately to transfer him to [facility] for PCI. Patient reports feeling well. He denies any cardiovascular symptoms. He is covered in nics and bruises which she states are from his cat scratching him. He denies falls. He denies bloody noses, blood in his urine or blood in the stool. The plan today was to titrate heart failure medications. We will increase lisinopril from 2.5 mg daily to 5 mg daily and get a BMP in 5 to 7 days. Bleeding risk discussed with Dr. Falk who agrees patient should discontinue Brilinta and instead take Plavix 75 mg daily. He will follow-up with Dr. Falk in2 weeks and continue with guideline directed medical therapy for HFrEF. Plan: Increase lisinopril from 2.5 mg to 5 mg daily BMP in 5 to 7 days Discontinue Brilinta Start taking Plavix 75 mg daily CBC in 5 to 7 days Cardiac rehab referral placed This note was generated utilizing voice recognition software.?? While attempts have been made to correct mistakes, common errors may occur, including substitution of words that sound phonetically similar to the intended word as well as random substitution errors.?? Please take this into consideration and use clinical context when necessary. Electronically signed by CARMINA Mccarty 04/07/2021 3:45 PM documented in this encounter Miscellaneous Notes Addendum Note - Alexi Love - 04/06/2021 2:30 PM PDT Addended by: ALEXI LOVE on: 04/10/2021 04:37 PM Modules accepted: Orders documented in this encounter Plan of Treatment Upcoming Encounters Date Type Specialty Care Team Description 07/24/2021 Office Visit Cardiology Ciara Falk MD [address] [address] [place], [place] [id number] (Wo rk) Scheduled Referrals Name Type Priority Associated Order Schedule Diagnoses XTRNL Referral to Outpatient Referral Routine ASHD Ord ered: Cardiac Rehabilitation (arteriosclerotic 04/06/2021 heart disease) Cardiomyopathy, ischemic documented as of this encounter Procedures Procedure Name Priority Date/Time Associated Diagnosis Comme nts ECG 12-LEAD Routine 04/07/2021 2:44 PM ASHD Results for this PDT (arteriosclerotic procedure are in the heart disease) results secti on. documented in this encounter Results CBC w/ diff Lab Collect (04/10/2021) Specimen Blood - Venous blood (substance) Narrative This result has an attachment that is no t available. Basic metabolic panel (04/10/2021) Specimen Blood - Venous blood (substance) Narrative This result has an attachment that is no t available. ECG 12 Lead (Clinic - Same Day) (04/07/2021 2:44 PM PDT) Narrative This result has an attachment that is no t available. documented in this encounter Visit Diagnoses Diagnosis ASHD (arteriosclerotic heart disease) - Primary Coronary atherosclerosis of unspecified type of vessel, pamunkey or graft Cardiomyopathy, ischemic Other specified forms of chronic ischemi c heart disease RBBB documented in this encounter Insurance Payer Benefit Plan / Subscriber ID Effective Phone Address T ype Group Dates MEDICARE MEDICARE PART [id number] 2002-Pres [phone] [address] A AND B ent [address] [place] [id number] [facility] SUPP [id number] 2020-Prese [phone] [address] [facility] [phone] [place] [address] documented as of this encounter Advance Directives Documents on File Type Date Recorded Patient Can Labeler Explanati on Advance Directives and Living 03/15/2021 2:03 AM none Will Latest Code Status on File Code Status Date Activated Date Inactivated Comments Full Code 03/15/2021 2:30 PM 03/19/2021 12:46 PM Full Code 03/15/2021 1:44 AM 03/15/2021 2:30 PM Care Teams Terminologist Relationship Specialty Start Date End Date Christiano French PCP - General Internal Medicine 03/15/21 [address] [facility] [place] [id number] documented as of this encounter
--- NOTE | 2021-07-17 | DI.ECHO.S_ITS ---
Version: 1 Study ID: [id number] [place] [id number] Name: JUDI NICHOLS Study Date: 07/17/2021, 2: 01 PM : 1935 BP: 153 / 80 mmHg Gender: Male Height: 69 in Age: 85 Years Weight: 155 lb BSA: 1.85 mA? Ordering: JAZMIN RITCHIE Referring: JAZMIN RITCHIE Clinician: Hyun Hernandez Reason For Study: ISCHEMIC CARDIOMYOPATHY History: Summary Statements This is a limited echo to assess wall motion and LV systolic function. Sinus bradycardia. Heart rate is 48-51 bpm. Mildly dilated LV and normal wall thickness. Global hypokinesis. EF is 25-30%. Mildly dilated RV and RA. Compared to prior study 02/2021, LV is more dynamic. EF is up from 10-15% to 25-30%. EPSS is down from 2.2 cm to 1.8 cm further corroborating improved LV systolic function. LV end diastolic dimension is down from 6.2 cm to 5.9 cm. Left pleural effusion is no longer seen. Sinus bradycardia is new. Procedure: The study quality was technically adequate. Comparison is made with the echocardiogram of 03/09/2021. A two-dimensional transthoracic echocardiogram with color flow and Doppler was performed in limited views only to assess ejection fraction. Left Ventricle: The estimated left ventricular end diastolic volume is 160 ml. The left ventricle is normal in size and wall thickness. The ejection fraction is estimated to be 25-30%. Right Ventricle: The right ventricle is mildly dilated. The right ventricular systolic function is normal. Atria: The left atrial size is normal. The right atrium is mildly dilated. Mitral Valve: Aortic Valve: Pulmonic Valve: Great Vessels: Pericardium/ Pleura: There is no pericardial effusion. There is no pleural effusion. 2D and M-Mode Measurements and Calculations LVIDd: 5.9 cm LVIDs: 4.7 cm IVSd: 0.80 cm LVPWd: 0.87 cm LV ricks. diameter/BSA (cm/m^2): 3.2 LV sys. diameter/BSA (cm/m^2): 2.5 EPSS: 1.78 cm RVD1 (basal): 4.3 cm TAPSE: 2.07 cm LA A4 area: 18.1 mounter hand? RA area: 20.8 mounter hand? LA A2 area: 17.1 mounter hand? RA long axis: 4.9 cm LA length (vol): 5.5 cm RA vol: 74.5 ml LA vol: 47.5 ml RA : 40.2 ml/mA? LA vol index: 25.6 ml/mA? Electronically signed by: Jazmin Ritchie M.D. 07/19/2021, 9: 19 PM
== END ==
PROVIDERS: PCP Internal Medicine; Referring Provider Internal Medicine; Visit Provider Internal Medicine
DX: I25.5 Ischemic cardiomyopathy (principal); R00.1 Bradycardia, unspecified
CPT/HCPCS: 93307

== ENCOUNTER → 2021-07-27 11:47 | Outpatient (CLI) | payer MEDICARE, SELFPAY ==
[2021-03-08 22:44] VITALS: BMI 25.8
[2021-07-27 12:46] LABS: BUN Creatinine Ratio 25.5 (6-22); Blood Urea Nitrogen 28 mg/dL (9-20); Calcium 9.4 mg/dL (8.4-10.2); Carbon Dioxide 26 mmol/L (22-32); Chloride 106 mmol/L (98-107); Estimated Glomerular Filt Rate > 60.0 mL/min (>60); Glucose 98 mg/dL (80-110); HEMOLYSIS < 15 (0-50); Potassium 4.3 mmol/L (3.4-5.1); Sodium 138 mmol/L (137-145)
== END ==
PROVIDERS: PCP Internal Medicine; Referring Provider Internal Medicine; Visit Provider Internal Medicine
DX: I25.5 Ischemic cardiomyopathy (principal)
CPT/HCPCS: 36415; 80048

== ENCOUNTER → 2021-09-05 11:10 | Outpatient (CLI) | payer MEDICARE, SELFPAY ==
[2021-03-08 22:44] VITALS: BMI 25.8
[2021-09-05 13:05] LABS: Blood Urea Nitrogen 42 mg/dL (9-20); Calcium 9.2 mg/dL (8.4-10.2); Carbon Dioxide 25 mmol/L (22-32); Chloride 106 mmol/L (98-107); Estimated Glomerular Filt Rate 35.4 mL/min (>60); Glucose 96 mg/dL (80-110); HEMOLYSIS < 15 (0-50); Potassium 4.1 mmol/L (3.4-5.1); Sodium 138 mmol/L (137-145)
== END ==
PROVIDERS: PCP Internal Medicine; Referring Provider Internal Medicine; Visit Provider Internal Medicine
DX: I25.5 Ischemic cardiomyopathy (principal)
CPT/HCPCS: 36415; 80048

== ENCOUNTER → 2021-09-28 14:35 | Outpatient (CLI) | payer MEDICARE, SELFPAY ==
[2021-03-08 22:44] VITALS: BMI 25.8
--- NOTE | 2021-09-28 14:38 | DI.RAD.S_ITS ---
PROCEDURE: XR ELBOW LT 2V INDICATIONS: LT ELBOW INJURY TECHNIQUE: 3 views of the elbow were acquired. COMPARISON: None. FINDINGS: Bones: No fractures or dislocations. No suspicious bony lesions. Mild periarticular osteophyte formation. Soft tissues: No elbow joint effusion. No suspicious soft tissue calcifications. IMPRESSION: No acute fracture. No osseous lesion. If clinical suspicion and/orsymptoms persist, further assessment with repeat plainfilms, or advanced imaging (e.g., CT, MRI, or bone scan) may be helpful for further assessment. Dictated by: Ari Canseco [facility] Interpreted: Marla Hollis MD on 09/28/2021 at 15:00 Transcribed by: ABEL on 09/28/2021 at 15:01 Approved by: Marla Hollis M.D. on 09/28/2021 at 15:41
== END ==
PROVIDERS: PCP Internal Medicine; Referring Provider Internal Medicine; Visit Provider Internal Medicine
DX: S59.902A Unspecified injury of left elbow, initial encounter (principal); X58.XXXA Exposure to other specified factors, initial encounter
CPT/HCPCS: 73070

== ENCOUNTER 2021-12-07 14:15 | Outpatient (RCR) | payer MEDICARE, SELFPAY ==
[2021-03-08 22:44] VITALS: BMI 25.8
--- OUTSIDE RECORDS SUMMARY | 2021-05-01 08:55 | XMS_ITS | Referral Summary ---
:1935 Author Organization [facility] Address [address] [place] [address] Care Team Providers Name Role Phone French Primary Care Provider Reason for Referral Rehabilitation - Outpatient (Routine) Status Reason Specialty Diagnoses / Procedures Referred By Fay davis To Contact Contact Closed Cardiology Diagnoses Ischemic cardiomyopathy Deya [facility] MD Lashae [address] [place] [address] [phone] [place], [place] Phone: [phone] Electronically signed by Jeanne Falk MD at (Routine) Status Reason Specialty Diagnoses / Procedures Referred By Fay davis To Contact Contact Pending Review Diagnoses Ischemic cardiomyopathy Deya, Procedures ECHOCARDIOGRAM LIMITED Jeanne Bhardwaj MD [address] [place] [address] [address] [place] [address] Electronically signed by Jeanne Falk MD at Reason for Visit Reason Comments Cardiomyopathy Encounter Details Date Type Department Care Team Description 04/25/2021 Office Visit [facility] Falk, Ischemic car diomyopathy Clinics Cardiology Jeanne Bhardwaj MD (Primary Dx) [place] [id number] [address] [address] [place] [address] [address] [place], [place] [id number] Allergies No Known Active Allergiesdocumented as of this encounter (statuses as of 04/26/2021) Medications Medication Sig Dispensed Refills Start Date End Date Status albuterol HFA Inhale 2 puffs 0 A ctive (ProAir) 90 every 6 (six) mcg/actuation inhaler hours as needed for wheezing CHOLECALCIFEROL, Take 1 tablet by 0 Active VITAMIN D3, ORAL mouth daily ascorbic acid, Take 500 mg by 0 Active vitamin C, (VITAMIN mouth every C) 500 mg tablet morning latanoprost (XALATAN) Administer 1 drop 0 Active 0.005 % ophthalmic into affected solution eye(s) daily montelukast Take 10 mg by 0 Acti ve (SINGULAIR) 10 mg mouth daily tablet nitroglycerin Place 0.4 mg 0 03/23/2021 Ac tive (NITROSTAT) 0.4 mg SL under the tongue tablet every 5 minutes as needed torsemide (DEMADEX) Take 10 mg by 0 03/23/2021 Active 10 mg tablet mouth lisinopriL (PRINIVIL) Take 2 tablets (5 60 tablet 0 04/06/2021 05/06/2021 Active 2.5 mg tablet mg total) by mouth daily aspirin 81 mg Take 81 mg by 0 03/23/2021 A ctive chewable tablet mouth daily atorvastatin Take 1 tablet by 0 04/17/2021 Active (LIPITOR) 80 mg mouth daily tablet clopidogreL (PLAVIX) Take 1 tablet by 0 04/17/2021 Active 75 mg tablet mouth daily metoprolol succinate Take 25 mg by 0 03/23/2021 Active XL (TOPROL-XL) 25 mg mouth 2 times 24 hr tablet daily spironolactone Take 0.5 tablets 0 04/17/2021 Active (ALDACTONE) 25 mg by mouth daily tablet fluticasone Inhale 1 puff 2 0 03/12/2021 A ctive propion-salmeteroL (two) times a day (Wixela Inhub) 500-50 mcg/dose diskus inhaler acetaminophen Take 650 mg by 0 A ctive (TYLENOL) 325 mg mouth every 6 tablet (six) hours as needed for mild pain documented as of this encounter (statuses as of 04/26/2021) Active Problems Problem Noted Date Ischemic cardiomyopathy 04/26/2021 documented as of this encounter (statuses as of 04/26/2021) Immunizations Name Administration Dates Next Due documented as of this encounter Social History Tobacco Use Types Packs/Day Years Used Date Never Smoker Smokeless Tobacco: Never Used Sex Assigned at Date Recorded Not on file Job Start Date Occupation Industry Not on file Not on file Not on file documented as of this encounter Last Filed Vital Signs Vital Sign Reading Time Taken Comments Blood Pressure 110/62 04/25/2021 1:49 PM PDT Pulse 52 04/25/2021 1:49 PM PDT Temperature - - Respiratory Rate - - Oxygen Saturation - - Inhaled Oxygen Concentration - - Weight 69.1 kg (152 lb 6.4 oz) 04/25/2021 1:49 PM PDT Height 175.3 cm (5' 9.02) 04/25/2021 1:49 PM PDT Body Mass Index 22.5 04/25/2021 1:49 PM PDT documented in this encounter Patient Instructions Patient InstructionsJeanne Falk MD - 04/25/2021 2:00 PM PDT 1. They will call you from cardiac rehab at [place] to set up your rehab 2. If you don't hear from them within 1 week, please let me know [phone] 3. In 3 months we will get together, but before we do, I will have you do another heart ultrasound at [facility] documented in this encounter Progress Notes Jeanne Falk MD - 04/25/2021 2:00 PM PDT Subjective Patient ID: Omi Nowak is a 85 y.o. male that had concerns including Cardiomyopathy. HPI: Patient is an 85-year-old man recently hospitalized at [facility] and subsequently transferred to [facility] March 15 for acute decompensated heart failure and found to have severe atherosclerotic heart disease. He was transferred to where he underwent distal left main circumflex intervention via 4 x 32 Synergy drug-eluting stent. Additionally, he underwent Roland drug-eluting stent to distal RCA 3.5 x 30 mm. He was started on Brilinta and aspirin.Due to medication availability he is no longer on Brilinta but rather is on Plavix 75 mg daily. He says since his intervention he is feeling much better. The only big adjustment since last clinicvisit is escalation of lisinopril from 2-1/2 to 5 mg daily. PAST CARDIAC WORKUP Echocardiogram:?? Prior echo at [facility] obtained March 09, 2021 demonstratedNormal sinus rhythm. Moderately dilated left ventricle with severe global hypokinesis. Ejection fraction is 10-15%. Stage II diastolic dysfunction. Mild left atrial enlargement. Mildly dilated RV with mildly reduced right ventricular function. Mitral valve leaflets are normal. There is mild mitral annular calcification with moderate associated eccentric posterior laterally directed mitral regurgitation. There is no obvious leaflet tethering or prolapse. Aortic sclerosis without stenosis. There is moderate central tricuspid regurgitation with estimated pulmonary artery systolic pressure of 55 mmHg assuming right atrial pressure 15 mmHg. There is moderate left pleural effusion. No prior study available for comparison. ?? I personally reviewed the study and I was very impressed by the degree of cardiomyopathy. /[facility] 03/15/2021 Severe CAD with 70% mLAD, 99% heavily calcified oLCX, 90% short tubular mRCA PA Pressure 60/25 mmHg PCWP 30 mmHg Pablo Cardiac Output 4.7 L/min History reviewed. No pertinent past medical history. History reviewed. No pertinent surgical history. History reviewed. No pertinent family history. Social History Socioeconomic History ??? Marital status: Spouse name: Not on file ??? Number of children: Not on file ??? Years of education: Not on file ??? Highest education level: Not on file Tobacco Use ??? Smoking status: Never Smoker ??? Smokeless tobacco: Never Used No Known Allergies Current Medication List Sig acetaminophen (TYLENOL) 325 mg tablet Take 650 mg by mouth every 6 (six) hours as needed for mild pain albuterol HFA (ProAir) 90 mcg/actuation inhaler Inhale 2 puffs every 6 (six) hours as needed for wheezing ascorbic acid, vitamin C, (VITAMIN C) 500 mg tablet Take 500 mg by mouth every morning aspirin 81 mg chewable tablet Take 81 mg by mouth daily atorvastatin (LIPITOR) 80 mg tablet Take 1 tablet by mouth daily CHOLECALCIFEROL, VITAMIN D3, ORAL Take 1 tablet by mouth daily clopidogreL (PLAVIX) 75 mg tablet Take 1 tablet by mouth daily fluticasone propion-salmeteroL (Wixela Inhub) 500-50 mcg/dose diskus inhaler Inhale 1 puff 2 (two) times a day latanoprost (XALATAN) 0.005 % ophthalmic solution Administer 1 drop into affected eye(s) daily lisinopriL (PRINIVIL) 2.5 mg tablet Take 2 tablets (5 mg total) by mouth daily metoprolol succinate XL (TOPROL-XL) 25 mg 24 hr tablet Take 25 mg by mouth 2 times daily montelukast (SINGULAIR) 10 mg tablet Take 10 mg by mouth daily nitroglycerin (NITROSTAT) 0.[address] 0.4 mg under the tongue every 5 minutes as needed spironolactone (ALDACTONE) 25 mg tablet Take 0.5 tablets by mouth daily torsemide (DEMADEX) 10 mg tablet Take 10 mg by mouth Review of Systems Objective BP 110/62 (BP Location: Left arm, Patient Position: Sitting) Pulse (!) 52 Ht 1.753 m Wt 69.1 kg BMI 22.50 kg/m?? Physical Exam: General Appearance: Well-nourished, pleasant, cooperative, no apparent distress HEET: Normocephalic atraumatic, EOMI, no scleral icterus, no arcus, tongue midline, mucous membranesmoist, good dentition Neck: No obvious mass, supple Respiratory: Good aeration, clear to auscultation and percussion, no rales or wheeze Cardiovascular: Nondisplaced PMI, RRR, normal S1 and normal S2, no murmurs/rubs/gallops, JVP 4-5 cm,no JVD Pulses: Carotid and femoral pulses 2+ bilaterally without bruit, dorsalis pedis and anterior tibial pulses 2+ bilaterally Abdomen: Soft, nondistended, nontender, no heptosplenomegally, no hepatojugular reflux, normal bowelsounds without bruits Extremities: No clubbing, cyanosis or edema Neuro: Alert, no facial droop, tongue midline, no gross motor deficits Psych: Appropriate affect, normal mentation and memory Skin: Warm and dry, no rashes on face, neck, and lower extremities Assessment/Plan Diagnoses and all orders for this visit: Ischemic cardiomyopathy - ECHOCARDIOGRAM LIMITED; Future - XTRNL Referral to Cardiac Rehabilitation Assessment/Plan Comments: Patient is a complex 85-year-old man with severe cardiomyopathy, hypertension, hyperlipidemia and severe atherosclerotic heart disease status post drug-eluting stent to left main and RCA. Stent management -recommend continuing dual antiplatelet therapy at least until March 21, 2022. Startcardiac rehab Cardiomyopathy -unable to escalate medical therapy due to soft blood pressure. Repeat echo in 3 months and see if EF normalized on medical therapy. If EF remains less than 35%, consider ICD for primary prevention of SCD. Of note, QRS complexes 128 ms and he may benefit from cardiac resynchronizationtherapy. Continue torsemide, lisinopril and Toprol-XL and spironolactone. Sinus bradycardia -asymptomatic. Continue Toprol-XL 25 mg twice a day Electronically signed by Jeanne Falk MD 04/26/2021 4:04 PM documented in this encounter Plan of Treatment Upcoming Encounters Date Type Specialty Care Team Description 07/24/2021 Office Visit Cardiology Ciara Falk MD [address] [facility] [address] [place] [address] [phone] Scheduled Orders Name Type Priority Associated Diagnoses Order S chedule ECHOCARDIOGRAM LIMITED Imaging Routine Ischemic cardiomyo linn Expected: 07/26/2021, Expires: 2022 Scheduled Referrals Name Type Priority Associated Diagnoses Order S chedule XTRNL Referral to Outpatient Routine Ischemic Ordered: Cardiac Rehabilitation Referral cardiomyopathy 03/2021 documented as of this encounter Visit Diagnoses Diagnosis Ischemic cardiomyopathy - Primary Other specified forms of chronic ischemi c heart disease documented in this encounter Insurance Payer Benefit Plan / Subscriber ID Effective Dates Phone Addre ss Type Group MEDICARE MEDICARE PART A [id number] 2002-Present AND B [facility] SUPP [id number] 2020-Present SUPP documented as of this encounter Advance Directives Documents on File Type Date Recorded 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
== END 2021-12-07 16:15 ==
LOC: CAR 14:15
PROVIDERS: PCP Internal Medicine; Referring Provider Internal Medicine; Visit Provider Internal Medicine
DX: I50.33 Acute on chronic diastolic (congestive) heart failure (principal); Z95.5 Presence of coronary angioplasty implant and graft; I50.21 Acute systolic (congestive) heart failure
CPT/HCPCS: 93798

== ENCOUNTER → 2022-06-26 11:53 | Outpatient (CLI) | payer MEDICARE, SELFPAY ==
[2021-03-08 22:44] VITALS: BMI 25.8
[2022-06-26 14:02] LABS: Blood Urea Nitrogen 38 mg/dL (9-20); Calcium 8.7 mg/dL (8.4-10.2); Carbon Dioxide 25 mmol/L (22-32); Chloride 106 mmol/L (98-107); Estimated Glomerular Filt Rate 49 mL/min (>60); Glucose 104 mg/dL (80-110); HEMOLYSIS < 15 (0-50); Potassium 4.4 mmol/L (3.4-5.1); Sodium 136 mmol/L (137-145)
== END ==
PROVIDERS: PCP Internal Medicine; Referring Provider Internal Medicine; Visit Provider Internal Medicine
DX: I25.5 Ischemic cardiomyopathy (principal)
CPT/HCPCS: 36415; 80048

== ENCOUNTER → 2023-04-11 10:11 | Outpatient (CLI) | payer MEDICARE, SELFPAY ==
[2021-03-08 22:44] VITALS: BMI 25.8
[2023-04-11 12:00] LABS: Add Manual Diff / Slide Review NO; Basophils Absolute Auto 100 /uL (0-100); Eosinophils Absolute Auto 200 /uL (0-450); Eosinophils Percent Auto 3.5 % (2-4); Hematocrit 39.1 % (41-53); Hemoglobin 13.2 g/dL (13.5-17.5); Lymphocytes Absolute Auto 1000 /uL (1100-4500); Lymphocytes Percent Auto 17.5 % (25-40); Mean Corpuscular HGB Conc 33.8 % (30-36); Mean Corpuscular Hemoglobin 31.2 PG (26-34); Mean Corpuscular Volume 92.3 fL (80-100); Monocytes Absolute Auto 500 /uL (0-900); Monocytes Percent Auto 8.5 % (3-14); Neutrophils Absolute Auto 4100 /uL (1500-7000); Neutrophils Percent Auto 69.5 % (50-75); Platelet Count 211 X10^3/uL (150-400); Red Blood Cell Count 4.24 X10^6/uL (4.5-5.9); Red Cell Distribution Width 14.4 % (11.6-14.8)
[2023-04-11 12:18] LABS: Alanine Aminotransferase 20 IU/L (<50); Albumin 3.3 g/dL (3.5-5.0); Albumin Globulin Ratio 1.2 (1.0-2.8); Alkaline Phosphatase 77 U/L (38-126); Aspartate Aminotransferase 24 IU/L (17-59); BUN Creatinine Ratio 23.1 (6-22); Bilirubin Total 0.7 mg/dL (0.2-1.3); Blood Urea Nitrogen 31 mg/dL (9-20); Calcium 8.6 mg/dL (8.4-10.2); Carbon Dioxide 24 mmol/L (22-32); Chloride 104 mmol/L (98-107); Cholesterol 97 mg/dL (140-199); Estimated Glomerular Filt Rate 52 mL/min (>60); Globulin 2.7 g/dL (1.7-4.1); Glucose 95 mg/dL (80-110); HDL Cholesterol 49 mg/dL (40-60); HEMOLYSIS < 15 (0-50); LDL Cholesterol Calculated 42 mg/dL (<100); Potassium 4.3 mmol/L (3.4-5.1); Sodium 136 mmol/L (137-145); Triglycerides 30 mg/dL (35-150)
== END ==
PROVIDERS: PCP Internal Medicine; Referring Provider Internal Medicine; Visit Provider Internal Medicine
DX: I25.5 Ischemic cardiomyopathy (principal)
CPT/HCPCS: 36415; 80053; 80061; 85025

== ENCOUNTER → 2023-07-18 13:00 | Outpatient (CLI) | payer MEDICARE, SELFPAY ==
[2021-03-08 22:44] VITALS: BMI 25.8
[2023-07-18 15:47] LABS: BUN Creatinine Ratio 22.4 (6-22); Blood Urea Nitrogen 36 mg/dL (9-20); Calcium 9.5 mg/dL (8.4-10.2); Carbon Dioxide 27 mmol/L (22-32); Chloride 98 mmol/L (98-107); Estimated Glomerular Filt Rate 42 mL/min (>60); Glucose 95 mg/dL (80-110); HEMOLYSIS < 15 (0-50); Potassium 3.3 mmol/L (3.4-5.1); Sodium 138 mmol/L (137-145)
== END ==
PROVIDERS: PCP Internal Medicine; Referring Provider Internal Medicine; Visit Provider Internal Medicine
DX: I25.5 Ischemic cardiomyopathy (principal)
CPT/HCPCS: 36415; 80048

== ENCOUNTER → 2024-07-18 09:06 | Outpatient (CLI) | payer MEDICARE, SELFPAY ==
[2021-03-08 22:44] VITALS: BMI 25.8
[2024-07-18 09:54] LABS: Add Manual Diff / Slide Review NO; Basophils Absolute Auto 0 /uL (0-100); Basophils Percent Auto 0.6 % (0-2); Eosinophils Absolute Auto 300 /uL (0-450); Eosinophils Percent Auto 4.2 % (2-4); Lymphocytes Absolute Auto 1100 /uL (1100-4500); Lymphocytes Percent Auto 17.6 % (25-40); Mean Corpuscular HGB Conc 33.4 % (30-36); Mean Corpuscular Hemoglobin 31.1 PG (26-34); Mean Corpuscular Volume 93.3 fL (80-100); Monocytes Absolute Auto 500 /uL (0-900); Neutrophils Absolute Auto 4400 /uL (1500-7000); Neutrophils Percent Auto 69.6 % (50-75); Platelet Count 220 X10^3/uL (150-400); Red Blood Cell Count 5.15 X10^6/uL (4.5-5.9); Red Cell Distribution Width 15.6 % (11.6-14.8); White Blood Cell Count 6.3 X10^3/uL (4.5-11.0)
[2024-07-18 10:12] LABS: BUN Creatinine Ratio 21.8 (6-22); Blood Urea Nitrogen 26 mg/dL (9-20); Calcium 9.3 mg/dL (8.4-10.2); Carbon Dioxide 26 mmol/L (22-32); Chloride 103 mmol/L (98-107); Estimated Glomerular Filt Rate 59 mL/min (>60); Glucose 116 mg/dL (80-110); HEMOLYSIS 21 (0-50); Potassium 4.5 mmol/L (3.4-5.1); Sodium 135 mmol/L (137-145)
== END ==
PROVIDERS: PCP Physician Assistant; Referring Provider Internal Medicine Cardiovascular Disease; Visit Provider Internal Medicine Cardiovascular Disease
DX: I25.5 Ischemic cardiomyopathy (principal)
CPT/HCPCS: 36415; 80048; 85025

== ENCOUNTER → 2024-08-13 13:10 | Outpatient (CLI) | payer MEDICARE, SELFPAY ==
[2021-03-08 22:44] VITALS: BMI 25.8
[2024-08-13 14:46] LABS: BUN Creatinine Ratio 18.8 (6-22); Blood Urea Nitrogen 21 mg/dL (9-20); Calcium 9.2 mg/dL (8.4-10.2); Carbon Dioxide 27 mmol/L (22-32); Chloride 107 mmol/L (98-107); Estimated Glomerular Filt Rate > 60 mL/min (>60); Glucose 93 mg/dL (80-110); HEMOLYSIS 21 (0-50); Potassium 3.8 mmol/L (3.4-5.1); Sodium 140 mmol/L (137-145)
== END ==
PROVIDERS: PCP Physician Assistant; Referring Provider Internal Medicine; Visit Provider Internal Medicine
DX: I25.5 Ischemic cardiomyopathy (principal)
CPT/HCPCS: 36415; 80048

== ENCOUNTER 2024-12-14 09:47 | Emergency (ER) | payer MEDICARE, SELFPAY ==
[2021-03-08 22:44] VITALS: BMI 25.8
[2024-12-14] VITALS (8 sets, daily range): BP systolic 116–159; BP diastolic 61–73; PULSE 76–94; RESP 15–25; TEMP 36.9; O2SAT 93–97; BMI 23.6
--- NOTE | 2024-12-14 09:57 | DI.RAD.S_ITS ---
PROCEDURE: XR CHEST 1V INDICATIONS: chest pain TECHNIQUE: One view of the chest was acquired. COMPARISON: [facility], CR, XR CHEST 2V, 03/08/2021, 16:26. FINDINGS: Surgical changes and devices: Pacemaker Lungs and pleura: Lungs are clear. No pleural effusions or pneumothorax. Mediastinum: Mediastinal contours appear normal. Heart size is normal. Bones and chest wall: No suspicious bony lesions. Overlying soft tissues appear unremarkable. IMPRESSION: No acute cardiopulmonary abnormality is seen. Dictated by: Tai David M.D. on 12/14/2024 at 10:42 Approved by: Tai David M.D. on 12/14/2024 at 10:44
--- NOTE | 2024-12-14 09:57 | DI.CT.S_ITS ---
PROCEDURE: CT HEAD/BRAIN WO CON INDICATIONS: fall hit head on thinners/dizziness/off balance TECHNIQUE: Noncontrast 4.5 mm thick angled axial sections acquired from the foramen magnum to the vertex, with coronal and sagittal reformats. For radiation dose reduction, the following was used: automated exposure control, adjustment of mA and/or kV according to patient size. COMPARISON: None. FINDINGS: Image quality: Diagnostic. CSF spaces: Basal cisterns are patent. No extra-axial fluid collections. The ventricles are symmetric in size and shape. Brain: No intracranial bleeds or masses. There is cerebral volume loss for age, with resultant ventricular and sulcal prominence. There are periventricular and deep white matter chronic small vessel ischemic changes. There is intracranial internal carotid artery atherosclerosis. Skull and face: Calvarium and visualized facial bones appear intact, without suspicious lesions. Sinuses: Visualized sinuses and mastoids are clear. IMPRESSION: No acute intracranial pathology. Dictated by: Tai David M.D. on 12/14/2024 at 10:54 Approved by: Tai David M.D. on 12/14/2024 at 10:55
--- NOTE | 2024-12-14 09:57 | DI.CT.S_ITS ---
PROCEDURE: CT CERVICAL SPINE WO CON INDICATIONS: fall hit head on thinners/dizziness/off balance TECHNIQUE: Noncontrast 3 mm thick sections acquired from the skull base to the T4 level. Sagittal and coronal reformats were then constructed. For radiation dose reduction, the following was used: automated exposure control, adjustment of mA and/or kV according to patient size. COMPARISON: None. FINDINGS: Image quality: Excellent. Bones: No fractures or dislocations. Advanced cervical spondylosis. Alignment is likely chronic. There is anterolisthesis of C3 on C4 measuring 4 mm. Trace anterolisthesis of C4 on C5, trace retrolisthesis of C5 on C6, and anterolisthesis of C7 on T1 measuring 5 mm. There is trace anterolisthesis of T1 on T2 and T2 on T3. Multilevel facet arthropathy. Multilevel bony foraminal narrowing. Visualized superior ribs are intact. Apparent loss of either a single fractured left posterior mandibular molar versus 2 left posterior mandibular molars. Multiple dental caries and missing teeth. Soft tissues: Prevertebral soft tissues are normal in thickness. No paravertebral hematomas. No apical pneumothoraces. IMPRESSION: No displaced fracture or traumatic subluxation. Severe cervical spondylosis. Poor dentition, loss of either 1 or 2 posterior left mandibular teeth. Dictated by: Tai David M.D. on 12/14/2024 at 10:49 Approved by: Tai David M.D. on 12/14/2024 at 10:54
--- NOTE | 2024-12-14 10:44 | EKG_ITS ---
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
[2024-12-14 10:57] LABS: INR 1.2 (0.9-1.3); Prothrombin Time 13.8 SECONDS (9.4-12.5)
[2024-12-14 11:00] LABS: PTT Partial Thromboplastin Tim 31 SECONDS (25.1-36.5)
[2024-12-14 11:02] LABS: Alanine Aminotransferase 23 IU/L (<50); Albumin 3.8 g/dL (3.5-5.0); Albumin Globulin Ratio 1.4 (1.0-2.8); Alkaline Phosphatase 59 U/L (38-126); Aspartate Aminotransferase 51 IU/L (17-59); BUN Creatinine Ratio 19.3 (6-22); Bilirubin Total 0.6 mg/dL (0.2-1.3); Blood Urea Nitrogen 27 mg/dL (9-20); Calcium 8.5 mg/dL (8.4-10.2); Carbon Dioxide 23 mmol/L (22-32); Chloride 102 mmol/L (98-107); Creatine Kinase 929 U/L (55-170); Estimated Glomerular Filt Rate 49 mL/min (>60); Globulin 2.7 g/dL (1.7-4.1); Glucose 117 mg/dL (80-110); HEMOLYSIS < 15 (0-50); Lipase 54 U/L (23-300); Magnesium 1.7 mg/dL (1.6-2.3); Potassium 3.8 mmol/L (3.4-5.1); Sodium 134 mmol/L (137-145); Total Protein 6.5 g/dL (6.3-8.2)
[2024-12-14 11:10] LABS: Add Manual Diff / Slide Review NO; Basophils Absolute Auto 100 /uL (0-100); Eosinophils Absolute Auto 0 /uL (0-450); Hematocrit 45.3 % (41-53); Hemoglobin 15.1 g/dL (13.5-17.5); Lymphocytes Absolute Auto 100 /uL (1100-4500); Lymphocytes Percent Auto 1.4 % (25-40); Mean Corpuscular HGB Conc 33.4 % (30-36); Mean Corpuscular Hemoglobin 31.2 PG (26-34); Mean Corpuscular Volume 93.5 fL (80-100); Monocytes Absolute Auto 500 /uL (0-900); Monocytes Percent Auto 5.1 % (3-14); NT-proBNP (BNP-Adult 18+) 4520 pg/mL (<450); Neutrophils Absolute Auto 9100 /uL (1500-7000); Neutrophils Percent Auto 92.5 % (50-75); Platelet Count 168 X10^3/uL (150-400); Red Blood Cell Count 4.85 X10^6/uL (4.5-5.9); Red Cell Distribution Width 14.3 % (11.6-14.8); White Blood Cell Count 9.8 X10^3/uL (4.5-11.0)
--- NOTE | 2024-12-14 11:12 | PC.NURSE ---
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 was able to stand unassisted to take off pants, soiled pants, underwear, two socks, belt were put in a patient belongings bag. pt. left thigh was cleaned with warm soapy wash cloth and dried. helped pt. put on clean brief and gown. pt. has a couple of small open skin lesions on rt. leg. call light within reach. rn notified.
[2024-12-14 11:15] LABS: Troponin I 0.107 ng/mL (0.01-0.034)
--- NOTE | 2024-12-14 11:38 | ED_ITS ---
HPI - Fall General Chief Complaint: Fall Stated Complaint: fell and couldnt get up Time Seen by Provider: 12/14/24 11:33 Source: patient, RN notes reviewed and old records reviewed History of Present Illness HPI Narrative: 89-year-old male known atherosclerotic heart disease, cardiomyopathy, pacemaker who presents with complaint of fall. Patient states he tripped and fell. Thinks he may have hit his head but he was not sure. Denies any pain except it his knees. Patient states he was scraped up both legs pretty well. They did not bleed a little bit. He was unsure of his tetanus status. Patient denies any headache, no neck pain no back pain, no chest pain or shortness of breath. No nausea or vomiting denies any other GI or urinary symptoms. States he has been a little bit off balance but describes that has been for several months. No worse or new changes but he states that probably contributed to his fall. Patient states he does take daily medications he is unsure what they all are for he thinks he does take it and anticoagulants. He denies any drug allergies. Patient lives at home with his partner who brought him today. [address] [facility]. He states he follows with the [facility] for his primary care. No tobacco, drinks alcohol daily, no recreational drugs. Patient notes he uses a walker to ambulate. Related Data Home Medications Medication Instructions Recorded Confirmed montelukast 10 mg tablet 10 mg PO DAILY 03/08/21 03/08/21 Previous Rx's Medication Instructions Recorded albuterol sulfate 90 mcg/actuation 2 puff inhalation QID PRN 02/13/21 aerosol inhaler shortness of breath or wheezing #6.7 grams fluticasone 500 mcg-salmeterol 50 1 inh inhalation BID #1 ea 02/13/21 mcg/dose blistr powdr for inhalation (Wixela Inhub) Allergies Allergy/AdvReac Type Severity Reaction Status Date / Time No Known Drug Allergies Allergy Verified 06/10/19 14:10 Review of Systems Review of Systems ROS Unobtainable: All systems reviewed & are unremarkable except as noted in HPI and below Patient History Surgical History No history of previous surgery Family History Mother Uterine cancer Father Lung cancer Social History household members: significant other Smoking Status: Never smoker alcohol intake: current Smoking Status: Never smoker alcohol intake frequency: 0-2 drinks per day Exam Narrative Exam Narrative: GEN: Disheveled male Patient appears in mild distress. HEAD: No evidence of trauma, no raccoon/Rasheed sign. NECK: Nontender, painless range of motion, trachea midline Negative Nexus criteria, no midline line tenderness, distracting injury, altered mental status, neuro deficit, recent EtOH. EYES: PERRLA, EOMI ENT: External inspection normal, trachea is midline, TM's are normal no hemotypanum, Nares are clear, no septal hematoma, no dental or oral injury, airway is normal and with normal occlusion, No bony tenderness RESP: Chest is nontender and has symmetric movement, no ecchymosis, breath sounds are normal no crackles, wheezes or rales CVS: Heart sounds are normal, no murmur noted, No JVD. ABG/GI: Nontender, soft, normal bowel sounds, no distention, no organomegaly, pelvic rock is negative NEURO: Oriented AOx3, neuro is grossly intact, sensation and motor is normal all 4 extremities moving, cranial nerves II through XII are intact, GCS is 15 PSYCH: Normal mood and affect SKIN: Patient has a abrasions bilateral knees and anterior shins bilaterally, warm and dry, no crepitus and without decubitus BACK: No CVA tenderness, no vertebral tenderness, no step-off's, no crepitus EXT: Atraumatic, hips are nontender, no pedal edema, normal color and temperature, normal range of motion of extremities with normal tendon exam, 2+ pulses in all four extremities Initial Vital Signs Initial Vital Signs: Vital Signs Temperature 98.5 F 12/14/24 09:51 Pulse Rate 92 H 12/14/24 09:51 Respiratory Rate 16 12/14/24 09:51 Blood Pressure 159/66 H 12/14/24 09:51 Pulse Oximetry 95 12/14/24 09:51 Oxygen Delivery Method Room Air 12/14/24 09:51 Course Orders Ordered: ED Orders 12/14/24 09:57 CT cervical spine wo con Stat CT head/brain wo con Stat XR chest 1V Stat EKG-12 Lead Stat 12/14/24 10:28 Complete Blood Count AUTO DIFF Stat Comprehensive Metabolic Panel Stat Lipase Stat Magnesium Stat NT-proBNP (BNP-Adult 18+) Stat PTT Partial Thromboplastin Bashir Stat Prothrombin Time INR Stat Troponin & CK Cardiac Panel Stat Discontinued Medications Diphtheria/Tetanus/Acell Pertussis (Tet,Diph,Pertuss(Acell),Vac/Pf 0.5 Ml Syringe) 0.5 ml IM .ONCE ONE Stop: 12/14/24 11:58 Last Admin: 12/14/24 12:15 Dose: 0.5 ml Documented By: GORDO Vital Signs Vital signs: Vital Signs - 8 hr 12/14/24 10:36 12/14/24 10:38 12/14/24 10:38 Pulse Rate 88 90 Respiratory Rate 15 Blood Pressure 129/61 Pulse Oximetry 93 93 Oxygen Delivery Method Room Air 12/14/24 11:00 12/14/24 11:01 12/14/24 11:01 Pulse Rate 89 94 H Respiratory Rate 25 H Blood Pressure 116/65 Pulse Oximetry Oxygen Delivery Method 12/14/24 11:41 12/14/24 12:00 12/14/24 12:00 Pulse Rate 78 76 Respiratory Rate 23 20 Blood Pressure 131/73 Pulse Oximetry 95 97 Oxygen Delivery Method Room Air 12/14/24 12:30 Pulse Rate 89 Respiratory Rate 21 Blood Pressure Pulse Oximetry 97 Oxygen Delivery Method MDM - Fall Lab Data 12/14/24 10:28 12/14/24 10:28 Labs: Lab Results 12/14/24 Range/Units 10:28 WBC 9.8 (4.5-11.0) X10^3/uL RBC 4.85 (4.5-5.9) X10^6/uL Hgb 15.1 (13.5-17.5) g/dL Hct 45.3 (41-53) % MCV 93.5 (80-100) fL MCH 31.2 (26-34) PG MCHC 33.4 (30-36) % RDW 14.3 (11.6-14.8) % Plt Count 168 (150-400) X10^3/uL Neut % (Auto) 92.5 H (50-75) % Lymph % (Auto) 1.4 L (25-40) % [place] % (Auto) 5.1 (3-14) % Eos % (Auto) 0.0 L (2-4) % Baso % (Auto) 1.0 (0-2) % Neut # (Auto) 9100 H (2815-7188) /uL Lymph # (Auto) 100 L (7086-7679) /uL [place] # (Auto) 500 (0-900) /uL Eos # (Auto) 0 (0-450) /uL Baso # (Auto) 100 (0-100) /uL PT 13.8 H (9.4-12.5) SECONDS INR 1.2 (0.9-1.3) APTT 31 (25.1-36.5) SECONDS Sodium 134 L (137-145) mmol/L Potassium 3.8 (3.4-5.1) mmol/L Chloride 102 (98-107) mmol/L Carbon Dioxide 23 (22-32) mmol/L BUN 27 H (9-20) mg/dL Creatinine 1.40 H (0.66-1.25) mg/dL Estimated GFR 49 L (>60) mL/min BUN/Creatinine Ratio 19.3 (6-22) Glucose 117 H (80-110) mg/dL Calcium 8.5 (8.4-10.2) mg/dL Magnesium 1.7 (1.6-2.3) mg/dL Total Bilirubin 0.6 (0.2-1.3) mg/dL AST 51 (17-59) IU/L ALT 23 (<50) IU/L Alkaline Phosphatase 59 (38-126) U/L Total Creatine Kinase 929 H (55-170) U/L Troponin I 0.107 H (0.01-0.034) ng/mL NT-Pro-B Natriuret Pep 4520 H (<450) pg/mL Total Protein 6.5 (6.3-8.2) g/dL Albumin 3.8 (3.5-5.0) g/dL Globulin 2.7 (1.7-4.1) g/dL Albumin/Globulin Ratio 1.4 (1.0-2.8) Lipase 54 (23-300) U/L ECG Data Attestation: I personally reviewed and interpreted this ECG as follows: Interpretation: Atrial sensed ventricular paced rhythm rate 83 VT 160 QRS of 128 QTC of 451. prior from 02/2021 was not paced. MDM Narrative Medical decision making narrative: EKG shows atrial sensed ventricular paced rhythm Labs show normal white count hemoglobin and platelets. Coags are negative, creatinine is 1.40 this appears fairly similar to patient's priors was 1.12 in July, BUN 27 sodium is 134 electrolytes otherwise appropriate glucose is 117. LFTs are negative total CK is 929, patient's troponin indeterminate 0.107 with a BNP of 4520. Patient troponins has been indeterminate on all priors. BNP is improved from 11,900 on prior in 2020. Head CT is negative CT cervical spine shows no displaced fracture or traumatic subluxation severe cervical spondylosis a poor dentition with loss of either 1 or 2 posterior mandibular teeth CXR is negative. tetanus was updated. Ambulation trial in the department. Discharge Plan Departure Patient Disposition: Home Clinical Impression: Abrasion of left leg, Abrasion of right leg, Fall Activity Restrictions/Additional Instructions: Follow up with your physician for recheck. Wound Care: Keep wound(s) clean and dry. Wash daily with soap and water only. Do not use over the counter products (alcohol or peroxide)on the wounds unless instructed by a physician. If wound condition worsens (increased/expanding redness, developing fluid blisters, or worsening pain), either contact your doctor for an urgent re- assessment , or return to the Emergency Department. Return if fever greater than 100.4 Fahrenheit, severe headaches, new chest pain or shortness of breath, lightheadedness or passing out, signs of infection at your wounds, new swelling of your extremities or other new or concerning changes. Prescriptions: No Action albuterol sulfate 90 mcg/actuation HFA aerosol inhaler 2 puff inhalation QID PRN (Reason: shortness of breath or wheezing) Qty: 6.7 1RF fluticasone propion-salmeterol [Wixela Inhub] 500-50 mcg/dose blister with device 1 inh inhalation BID Qty: 1 1RF montelukast 10 mg tablet 10 mg PO DAILY Referrals: Adriana Cramer PA-C [Primary Care Provider] - Stand Alone Forms: Patient Portal/API/Survey
[2024-12-14] MEDS: TET,DIPH,PERTUSS(ACELL),VAC/PF 0.5 ML SYRINGE IM (12:15)
--- NOTE | 2024-12-14 12:56 | CM.SWNOTE ---
ED HEAD OF VISUAL MERCHANDISING Assessment Note: Pt is a 89yo male, resident of [facility], is seen in the ED after a fall. Pt lives in a house with his partner, Anna. Pt's Primary Care Provider is Adriana Cramer PA-C and insurance is Medicare. Reviewed chart and discussed with multidisciplinary team pt's medical status and initial discharge needs. HEAD OF VISUAL MERCHANDISING entered room to meet with patient, introduced self and role. Pt endorses he has been pretty independent at baseline, has the support of his partner, Anna. 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 HEAD OF VISUAL MERCHANDISING educated on follow up with PCP and HH referral from their office, pt acknowledged and gave consent for this HEAD OF VISUAL MERCHANDISING to call PCP office to notify of presentation to ED. HEAD OF VISUAL MERCHANDISING called [facility], scheduled pt for a follow up appt on Saturday, December 21, 2024 at 2:00pm. Plan: Pt to discharge with home with partner, attempting to ride on 1:30pm ferry back to [facility]. Follow up with PCP. SHAISTA Hanna
--- NOTE | 2024-12-14 13:23 | PC.NURSE ---
dressings placed to bilateral knees and R lower johnson. pt given paper scrubs due to soiled clothing. ROAD ENGINEER FREIGHT placed in WC and pt waiting in [place] for on ferry.
== END 2024-12-14 13:25 | disposition home or self-care (01) ==
PROVIDERS: Emergency Provider Emergency Medicine; PCP Physician Assistant
DX: S80.812A Abrasion, left lower leg, initial encounter (principal); S80.811A Abrasion, right lower leg, initial encounter; R07.9 Chest pain, unspecified; W01.0XXA Fall on same level from slipping, tripping and stumbling without subsequent striking against object, initial encounter; I25.10 Atherosclerotic heart disease of native coronary artery without angina pectoris; Z95.0 Presence of cardiac pacemaker; Z79.01 Long term (current) use of anticoagulants; Z23 Encounter for immunization
CPT/HCPCS: 36415; 70450; 71045; 72125; 80053; 82550; 83690; 83735; 83880; 84484; 85025; 85610; 85730; 90471; 93005; 99283; 99284; 90715

== ENCOUNTER → 2025-04-19 09:03 | Outpatient (CLI) | payer MEDICARE, SELFPAY ==
[2021-03-08 22:44] VITALS: BMI 25.8
[2025-04-19 10:20] LABS: BUN Creatinine Ratio 17.2 (6-22); Blood Urea Nitrogen 21 mg/dL (9-20); Carbon Dioxide 24 mmol/L (22-32); Chloride 107 mmol/L (98-107); Estimated Glomerular Filt Rate 57 mL/min (>60); Glucose 117 mg/dL (70-99); HEMOLYSIS < 15 (0-50); Potassium 3.9 mmol/L (3.4-5.1); Sodium 138 mmol/L (137-145)
== END ==
PROVIDERS: PCP Family Medicine; Visit Provider Nurse Practitioner Family
DX: I25.5 Ischemic cardiomyopathy (principal)
CPT/HCPCS: 36415; 80048

== ENCOUNTER → 2025-07-22 12:19 | Outpatient (CLI) | payer MEDICARE, SELFPAY ==
[2021-03-08 22:44] VITALS: BMI 25.8
[2025-07-22 13:59] LABS: Blood Urea Nitrogen 24 mg/dL (9-20); Calcium 9.1 mg/dL (8.4-10.2); Carbon Dioxide 23 mmol/L (22-32); Chloride 106 mmol/L (98-107); Estimated Glomerular Filt Rate 59 mL/min (>60); Glucose 100 mg/dL (70-99); HEMOLYSIS < 15 (0-50); Potassium 4.3 mmol/L (3.4-5.1); Sodium 139 mmol/L (137-145)
== END ==
PROVIDERS: PCP Family Medicine; Referring Provider Nurse Practitioner Family; Visit Provider Nurse Practitioner Family
DX: I25.5 Ischemic cardiomyopathy (principal); I50.22 Chronic systolic (congestive) heart failure
CPT/HCPCS: 36415; 80048